=== PATIENT | male | born 1940 | race Caucasian/White ===

== ENCOUNTER → 2018-01-14 08:01 | Outpatient (CLI) | payer MEDICARE, BC, SELFPAY ==
--- NOTE | 2018-01-14 | DI.US.S_ITS ---
PROCEDURE: US ABD AORTA ANEURYSM SCREEN INDICATIONS: AAA SCREENING TECHNIQUE: Real time scanning was performed of the aorta and iliac arteries, with image documentation. COMPARISON: [facility], CT, CT ANGIO CHEST ABDOMEN PELVIS, 07/22/2017, 15:40. FINDINGS: Aorta: Proximal aortic diameter measures 2.6 cm. Mid-aorta measures 1.8 cm. Distal aortic diameter is 1.5 cm. Iliac arteries: Right common iliac artery measures 1.4 cm. Left common iliac artery measures 1.4 cm. IMPRESSION: No abdominal aortic or proximal common iliac artery aneurysm. Dictated by: Wenceslao Andersen [facility] Interpreted: Analy Bradley MD on 01/14/2018 at 9:27 Approved by: Analy Bradley MD, PhD on 01/14/2018 at 15:19
--- NOTE | 2018-01-14 | DI.ECHO.S_ITS ---
[place]---------+ [facility] +---------+ : : [address] : : : : [id number] : : : : Phone: [phone] Echocardiogram Report + + :Name: MYNOR GALICIA Study Date: 01/14/2018 Height: 75 in : :[facility] Weight: 237 lb : : Gender: Male BSA: 2.4 m2 : :: 1940 Age: 77 yrs BP: 158/90 mmHg: :Reason For Study: Murmur : : Performed By: Nathalia Merlos : :Referring: INÉS IBRAHIM E : + + Interpretation Summary The ejection fraction is estimated to be 60-65%. There is trace mitral regurgitation. The aortic valve is moderately calcified. The aortic valve mean gradient is 13 mmHg. There is mild to moderate aortic stenosis. The right ventricular systolic pressure is estimated to be at least 25 mmHg based on an estimated right atrial pressure of 3 mm Hg. The ascending aorta is moderately enlarged. Procedure: A two-dimensional transthoracic echocardiogram with color flow and Doppler was performed. The study quality was technically adequate. There is no prior echocardiogram noted for this patient. The patient was in normal sinus rhythm during the exam. Left Ventricle: The left ventricle is normal in size, wall thickness, and systolic function without any focal wall motion abnormalities. The ejection fraction is estimated to be 60-65%. Left ventricular wall motion is normal. Diastolic parameters suggest probable normal left ventricular diastolic function and normal filling pressures. Right Ventricle: The right ventricle grossly appears normal in size with probable normal systolic function. Atria: The left atrium is borderline dilated. Right atrial size is normal. The interatrial septum is intact with no evidence for an atrial septal defect. Mitral Valve: The mitral valve is normal in structure and function. There is trace mitral regurgitation. Aortic Valve: The aortic valve is trileaflet. The aortic valve is moderately calcified. The calculated aortic valve area is 1.8 cm2. The aortic valve area is 1.3 centimeters squared by planimetry. The peak aortic velocity is 2.3 m/sec. The aortic valve mean gradient is 13 mmHg. Severity ratio is 0.48. There is mild to moderate aortic stenosis. No aortic regurgitation is present. Tricuspid Valve: The tricuspid valve leaflets are thin and pliable. There is trace tricuspid regurgitation. The right ventricular systolic pressure is estimated to be at least 25 mmHg based on an estimated right atrial pressure of 3 mm Hg. Pulmonic Valve: The pulmonic valve is not well seen, but is grossly normal. There is trace pulmonic regurgitation. Great Vessels: The aortic root is normal size. The ascending aorta is moderately enlarged. The aortic arch is mildly enlarged. Inspiratory collapse cannot be assessed because of mechanical ventilation, thus CVP cannot be estimated.. Pericardium/ Pleura There is no pericardial effusion. There is no pleural effusion. MMode/2D Measurements & Calculations LVIDd: 5.0 cm LVOT diam: 2.3 cm LVIDs: 3.0 cm Ao root diam: 3.6 cm FS: 40.4 % Aortic Jxn: 3.2 cm EPSS: 0.54 cm asc Aorta Diam: 4.2 cm IVSd: 0.98 cm Ao Arch Diam (Prox Trans): 3.5 cm LVPWd: 1.0 cm LV staton. diameter/BSA (cm/m^2): 2.1 LV sys. diameter/BSA (cm/m^2): 1.3 LA dimension: 4.6 cm RA long axis: 4.8 cm LA A2 area: 22.0 cm2 RA area: 18.8 cm2 LA A4 area: 21.1 cm2 RA vol: 62.7 ml LA length (vol): 5.9 cm RA : 26.6 ml/m2 LA vol: 67.1 ml IVC diam: 1.6 cm LA vol index: 28.5 ml/m2 RVDd major: 5.0 cm RVD1 (basal): 4.2 cm RVD2 (mid): 3.2 cm JOHN (plan): 1.3 cm2 Doppler Measurements & Calculations Ao V2 max: 232.0 cm/sec LVOT Max Shree: 97.6 cm/sec Ao V2 mean: 163.3 cm/sec LV V1 max P.8 mmHg Ao max P.5 mmHg LV V1 VTI: 25.2 cm Ao mean P.5 mmHg JOHN(I,D): 2.0 cm2 Ao V2 VTI: 52.5 cm JOHN(V,D): 1.8 cm2 sev ratio: 0.48 JOHN indexed to BSA (cm^2/m^2): 0.85 MV E max shree: 51.9 cm/sec TR max shree: 233.3 cm/sec MV A max shree: 61.8 cm/sec TR max P.8 mmHg MV E/A: 0.84 PA V2 max: 86.8 cm/sec Med Peak E' Shree: 5.3 cm/sec PA V2 mean: 51.3 cm/sec E/E' med: 9.9 PA mean P.3 mmHg Lat Peak E' Shree: 4.3 cm/sec PA Accel Time: 0.07 sec E/E' lat: 12.0 E/e' average: 10.9 MV dec time: 0.29 sec MV P1/2t: 86.4 msec MV P1/2t max shree: 52.2 cm/sec MVA(P1/2t): 2.5 cm2 Reading Physician:04:18 PM
== END ==
PROVIDERS: PCP Family Medicine; Visit Provider Family Medicine
DX: Z13.6 Encounter for screening for cardiovascular disorders (principal); I35.0 Nonrheumatic aortic (valve) stenosis; R01.1 Cardiac murmur, unspecified
CPT/HCPCS: 76706; 93306

== ENCOUNTER 2018-04-25 15:16 | Emergency (ER) | payer MEDICARE, OTHER, SELFPAY ==
[2018-04-25] VITALS (11 sets, daily range): BP systolic 133–235; BP diastolic 69–107; PULSE 99–105; RESP 18–28; TEMP 38.3–39.2; O2SAT 93–97; BMI 29.3
--- NOTE | 2018-04-25 15:58 | DI.RAD.S_ITS ---
PROCEDURE: XR CHEST 1V INDICATIONS: scheevering,fever,temp 102.5 TECHNIQUE: One view of the chest was acquired. COMPARISON: [facility], CT, CT ANGIO CHEST ABDOMEN PELVIS, 07/22/2017, 15:40. [facility], CR, XR CHEST 1 VIEW, 07/22/2017, 13:44. FINDINGS: Surgical changes and devices: None. Lungs and pleura: No pleural effusions or pneumothorax. Lungs are clear. Mediastinum: Mediastinal contours appear normal. Heart size is normal. Bones and chest wall: No suspicious bony lesions. Overlying soft tissues appear unremarkable. IMPRESSION: No acute cardiopulmonary disease process. Dictated by: Analy Bradley MD, PhD on 04/25/2018 at 16:19 Approved by: Analy Bradley MD, PhD on 04/25/2018 at 16:20
[2018-04-25] MEDS: ACETAMINOPHEN 325 MG TABLET 975 MG PO (16:00)
[2018-04-25 16:04] LABS: Influenza A and B by PCR Rapid Negative (Negative)
[2018-04-25 16:11] LABS: Add Manual Diff / Slide Review NO; Basophils Absolute Auto 0 /uL (0-100); Basophils Percent Auto 0.2 % (0-2); Eosinophils Absolute Auto 0 /uL (0-450); Eosinophils Percent Auto 0.5 % (2-4); Hematocrit 47.8 % (41-53); Hemoglobin 16.2 g/dL (13.5-17.5); Lymphocytes Absolute Auto 200 /uL (1100-4500); Lymphocytes Percent Auto 6.1 % (25-40); Mean Corpuscular HGB Conc 33.9 % (30-36); Mean Corpuscular Hemoglobin 30.3 PG (26-34); Mean Corpuscular Volume 89.4 fL (80-100); Monocytes Absolute Auto 0 /uL (0-900); Monocytes Percent Auto 0.8 % (3-14); Neutrophils Absolute Auto 3600 /uL (1500-7000); Neutrophils Percent Auto 92.4 % (50-75); Platelet Count 145 X10^3/uL (150-400); Red Blood Cell Count 5.35 X10^6/uL (4.5-5.9); Red Cell Distribution Width 13.7 % (11.6-14.8); White Blood Cell Count 3.9 X10^3/uL (4.5-11.0)
--- NOTE | 2018-04-25 16:11 | PC.NURSE ---
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
[2018-04-25 16:16] LABS: Alanine Aminotransferase 488 IU/L (21-72); Albumin 4.7 g/dL (3.5-5.0); Albumin Globulin Ratio 1.6 (1.0-2.8); Alkaline Phosphatase 102 U/L (38-126); Aspartate Aminotransferase 596 IU/L (17-59); BUN Creatinine Ratio 15.8 (6-22); Bilirubin Total 1.3 mg/dL (0.2-1.3); Blood Urea Nitrogen 19 mg/dL (9-20); Calcium 9.6 mg/dL (8.4-10.2); Carbon Dioxide 27 mmol/L (22-32); Chloride 101 mmol/L (98-107); Glucose 125 mg/dL (80-110); HEMOLYSIS < 15 (0-50); Lactate (Lactic Acid) 2.2 mmol/L (0.7-2.1); Potassium 4.5 mmol/L (3.4-5.1); Sodium 139 mmol/L (137-145); Total Protein 7.7 g/dL (6.3-8.2)
--- NOTE | 2018-04-25 16:31 | ED_ITS ---
HPI - Fever General Chief Complaint: Fever Stated Complaint: shakes, uncontrolable,sudden onsent, CP intermitte Time Seen by Provider: 04/25/18 16:00 Source: patient and family Mode of arrival: ambulatory Limitations: no limitations History of Present Illness HPI Narrative: 77-year-old nonsmoking male presents with his in the chief complaint of fever, body aches, and an episode of the shakes earlier today. He has a vague burning sensation in chest and abdomen, but very little in terms of specific complaints. He has had no nausea, vomiting or diarrhea. He denies any shortness of breath or cough. He has had no runny nose or sore throat. He did have his flu swab. He denies any dysuria, frequency or urgency MD complaint: fever Onset (ago): hour(s) Temperature Source: subjective Associated symptoms: chills, rigors and myalgias Relieving factors: nothing Exacerbating factors: nothing Treatments prior to arrival fever: none Related Data Home Medications Medication Instructions Recorded Confirmed aspirin 81 mg PO DAILY #0 03/30/11 04/25/18 Fish Oil 2,000 mg PO DAILY 04/25/18 04/25/18 atorvastatin 10 mg PO DAILY 04/25/18 04/25/18 metoprolol succinate 100 mg PO DAILY 04/25/18 04/25/18 nortriptyline 25 mg PO QPM 04/25/18 04/25/18 trospium 20 mg PO DAILY 04/25/18 04/25/18 turmeric 900 mg PO DAILY 04/25/18 04/25/18 Allergies Allergy/AdvReac Type Severity Reaction Status Date / Time No Known Drug Allergies Allergy Verified 04/25/18 15:23 Review of Systems Constitutional Reports body ache(s), Denies chills, Reports fever(s), Denies lethargy and Denies weakness Eyes Denies change in vision, Denies eye discharge, Denies irritation and Denies loss of vision ENT Ears, Nose, Mouth, and Throat: Denies change in voice, Denies neck pain and Denies sore throat Cardiovascular Denies chest pain, Denies irregular heart rhythm, Denies lightheadedness, Denies palpitations, Denies dyspnea, Denies dyspnea on exertion and Denies orthopnea Respiratory Denies cough, Denies dyspnea, Denies dyspnea on exertion and Denies wheezing Gastrointestinal Gastrointestinal: Reports abdominal pain, Denies change in bowel habits, Denies diarrhea, Denies nausea and Denies vomiting Genitourinary Denies hematuria, Denies flank pain, Denies urinary incontinence and Denies urinary urgency Musculoskeletal Denies neck pain Integumentary/Breasts Denies pruritus, Denies erythema, Denies rash and Denies wounds Neurologic Denies confusion, Denies loss of vision and Denies weakness Psychiatric Denies anxiety, Denies confusion, Denies depression, Denies homicidal ideation and Denies suicidal ideation Endocrine Denies palpitations Hematologic/Lymphatic Denies easy bruising Allergic/Immunologic Denies wheezing [facility] Social History Smoking Status: Never smoker Exam Narrative Exam Narrative: GENERAL: This is a well-nourished, well-developed patient, in mild distress. HEAD: Atraumatic. Normocephalic. No temporal or scalp tenderness. EYES: Pupils equal round and reactive. Extraocular motions intact. No scleral icterus. No injection or drainage. ENT: Nose without bleeding, purulent drainage or septal hematoma. Throat without erythema, tonsillar hypertrophy or exudate. Uvula midline. Airway patent. NECK: Trachea midline. No JVD or lymphadenopathy. Supple, nontender, no meningeal signs. CARDIOVASCULAR: Regular rate and rhythm without murmurs, gallops, or rubs. RESPIRATORY: Clear to auscultation. Breath sounds equal bilaterally. No wheezes , rales, or rhonchi. GASTROINTESTINAL: Abdomen soft, mild tenderness in right upper quadrant, nondistended. No hepato-splenomegaly, or palpable masses. No guarding. EXTREMITIES: No clubbing, cyanosis, or edema. No joint tenderness, effusion, or edema noted. BACK: Nontender without deformity or crepitance. No flank tenderness. NEURO: AOx3. SKIN: No rash or erythema. Initial Vital Signs Initial Vital Signs: Vital Signs Temperature 101.1 F H 04/25/18 15:23 Pulse Rate 99 H 04/25/18 15:23 Respiratory Rate 28 H 04/25/18 15:23 Blood Pressure 235/107 H 04/25/18 15:23 Pulse Oximetry 97 04/25/18 15:23 Course Orders Ordered: ED Orders 04/25/18 15:26 Influenza A and B by PCR Rapid Stat 04/25/18 15:31 EKG-12 Lead Stat 04/25/18 15:35 EKG-12 Lead Stat 04/25/18 15:40 Complete Blood Count AUTO DIFF Stat Comprehensive Metabolic Panel Stat Lactate (Lactic Acid) Stat Procalcitonin Stat 04/25/18 15:50 Hepatitis Acute Panel Stat 04/25/18 15:58 XR chest 1V Stat 04/25/18 16:17 Blood Culture Stat 04/25/18 17:34 US abdomen complete Stat Discontinued Medications Acetaminophen (Tylenol) 975 mg PO NOW ONE Stop: 04/25/18 15:58 Last Admin: 04/25/18 16:00 Dose: 975 mg Sodium Chloride (Normal Saline 0.9%) 1,000 mls @ 1,000 mls/hr IV BOLUS ONE Stop: 04/25/18 17:32 Last Infusion: 04/25/18 18:26 Dose: 0 mls/hr Admin: 04/25/18 16:33 Dose: 1,000 mls/hr Consultations Consultation #1: Upon receipt of ultrasound and elevated liver enzymes I have discussed this case with on-call surgery whom sure the opinion this is unlikely to be a surgical case. Most likely medical hepatitis Consultation #2: Called to patient's primary care provider who will follow very closely as an outpatient, and expect a call tomorrow Vital Signs - 8 hr 04/25/18 15:23 04/25/18 16:00 04/25/18 16:16 Temperature 101.1 F H 102.5 F H 102.5 F H Pulse Rate 99 H 105 H Respiratory Rate 28 H 18 Blood Pressure 235/107 H Blood Pressure [Right Arm] 179/85 H Pulse Oximetry 97 94 04/25/18 16:45 04/25/18 17:00 04/25/18 17:33 Temperature 101 F H Pulse Rate 104 H 103 H Respiratory Rate 22 22 Blood Pressure Blood Pressure [Right Arm] 158/77 H 151/78 H Pulse Oximetry 94 93 04/25/18 17:47 04/25/18 18:00 04/25/18 18:02 Temperature 101 F H Pulse Rate 103 H 103 H Respiratory Rate 23 24 Blood Pressure Blood Pressure [Right Arm] 140/70 146/79 H Pulse Oximetry 94 94 04/25/18 18:30 04/25/18 19:51 Temperature Pulse Rate 105 H Respiratory Rate 23 Blood Pressure Blood Pressure [Right Arm] 138/74 133/69 Pulse Oximetry 93 MDM - Fever Differential Diagnosis Likely gastroenteritis, community acquired pneumonia, pyelonephritis, viral infection, sepsis and influenza Medical Records Attestation: I reviewed the patient's medical records. Lab Data Attestation: I reviewed the patient's lab results. Result diagrams: 04/25/18 15:40 04/25/18 15:40 Lab Results 04/25/18 04/25/18 04/25/18 Range/Units 15:26 15:40 15:40 WBC 3.9 L (4.5-11.0) X10^3/uL RBC 5.35 (4.5-5.9) X10^6/uL Hgb 16.2 (13.5-17.5) g/dL Hct 47.8 (41-53) % MCV 89.4 (80-100) fL MCH 30.3 (26-34) PG MCHC 33.9 (30-36) % RDW 13.7 (11.6-14.8) % Plt Count 145 L (150-400) X10^3/uL Neut % (Auto) 92.4 H (50-75) % Lymph % (Auto) 6.1 L (25-40) % [place] % (Auto) 0.8 L (3-14) % Eos % (Auto) 0.5 L (2-4) % Baso % (Auto) 0.2 (0-2) % Neut # (Auto) 3600 (6742-1112) /uL Lymph # (Auto) 200 L (3572-3775) /uL [place] # (Auto) 0 (0-900) /uL Eos # (Auto) 0 (0-450) /uL Baso # (Auto) 0 (0-100) /uL Sodium (137-145) mmol/L Potassium (3.4-5.1) mmol/L Chloride (98-107) mmol/L Carbon Dioxide (22-32) mmol/L BUN (9-20) mg/dL Creatinine (0.66-1.25) mg/dL Estimated GFR (>60) mL/min BUN/Creatinine Ratio (6-22) Glucose (80-110) mg/dL Lactate (0.7-2.1) mmol/L Calcium (8.4-10.2) mg/dL Total Bilirubin (0.2-1.3) mg/dL AST (17-59) IU/L ALT (21-72) IU/L Alkaline Phosphatase (38-126) U/L Total Protein (6.3-8.2) g/dL Albumin (3.5-5.0) g/dL Globulin (1.7-4.1) g/dL Albumin/Globulin Ratio (1.0-2.8) Lipase Procalcitonin 0.39 (<0.5) ng/mL Urine RBC (0-5/HPF) Urine WBC (0-5/HPF) Urine Bacteria (None) Ur Culture Indicated? Influenza A & B (PCR) Negative (Negative) 04/25/18 04/25/18 04/25/18 Range/Units 15:40 15:40 Unknown WBC (4.5-11.0) X10^3/uL RBC (4.5-5.9) X10^6/uL Hgb (13.5-17.5) g/dL Hct (41-53) % MCV (80-100) fL MCH (26-34) PG MCHC (30-36) % RDW (11.6-14.8) % Plt Count (150-400) X10^3/uL Neut % (Auto) (50-75) % Lymph % (Auto) (25-40) % [place] % (Auto) (3-14) % Eos % (Auto) (2-4) % Baso % (Auto) (0-2) % Neut # (Auto) (0530-8068) /uL Lymph # (Auto) (8372-7718) /uL [place] # (Auto) (0-900) /uL Eos # (Auto) (0-450) /uL Baso # (Auto) (0-100) /uL Sodium 139 (137-145) mmol/L Potassium 4.5 (3.4-5.1) mmol/L Chloride 101 (98-107) mmol/L Carbon Dioxide 27 (22-32) mmol/L BUN 19 (9-20) mg/dL Creatinine 1.20 (0.66-1.25) mg/dL Estimated GFR 59.0 L (>60) mL/min BUN/Creatinine Ratio 15.8 (6-22) Glucose 125 H (80-110) mg/dL Lactate 2.2 H (0.7-2.1) mmol/L Calcium 9.6 (8.4-10.2) mg/dL Total Bilirubin 1.3 Cancelled (0.2-1.3) mg/dL AST 596 H (17-59) IU/L ALT 488 H (21-72) IU/L Alkaline Phosphatase 102 (38-126) U/L Total Protein 7.7 (6.3-8.2) g/dL Albumin 4.7 (3.5-5.0) g/dL Globulin 3.0 (1.7-4.1) g/dL Albumin/Globulin Ratio 1.6 (1.0-2.8) Lipase Cancelled Procalcitonin (<0.5) ng/mL Urine RBC (0-5/HPF) Urine WBC (0-5/HPF) Urine Bacteria (None) Ur Culture Indicated? Influenza A & B (PCR) (Negative) 04/25/18 04/25/18 Range/Units Unknown Unknown WBC (4.5-11.0) X10^3/uL RBC (4.5-5.9) X10^6/uL Hgb (13.5-17.5) g/dL Hct (41-53) % MCV (80-100) fL MCH (26-34) PG MCHC (30-36) % RDW (11.6-14.8) % Plt Count (150-400) X10^3/uL Neut % (Auto) (50-75) % Lymph % (Auto) (25-40) % [place] % (Auto) (3-14) % Eos % (Auto) (2-4) % Baso % (Auto) (0-2) % Neut # (Auto) (3808-4000) /uL Lymph # (Auto) (5985-7427) /uL [place] # (Auto) (0-900) /uL Eos # (Auto) (0-450) /uL Baso # (Auto) (0-100) /uL Sodium (137-145) mmol/L Potassium (3.4-5.1) mmol/L Chloride (98-107) mmol/L Carbon Dioxide (22-32) mmol/L BUN (9-20) mg/dL Creatinine (0.66-1.25) mg/dL Estimated GFR (>60) mL/min BUN/Creatinine Ratio (6-22) Glucose (80-110) mg/dL Lactate (0.7-2.1) mmol/L Calcium (8.4-10.2) mg/dL Total Bilirubin (0.2-1.3) mg/dL AST (17-59) IU/L ALT (21-72) IU/L Alkaline Phosphatase (38-126) U/L Total Protein (6.3-8.2) g/dL Albumin (3.5-5.0) g/dL Globulin (1.7-4.1) g/dL Albumin/Globulin Ratio (1.0-2.8) Lipase 48 Procalcitonin (<0.5) ng/mL Urine RBC 1-5/hpf (0-5/HPF) Urine WBC None seen (0-5/HPF) Urine Bacteria None seen (None) Ur Culture Indicated? Cult not indicated Influenza A & B (PCR) (Negative) Urine Dip Bedside Urine Glucose Negative Bedside Urine Bilirubin - Negative Bedside Urine Ketone - Negative Urine Specific [place] 1.025 Bedside Urine Occult Blood +/- Bedside Urine pH 6.0 Bedside Urine Protein + 30 Bedside Urine Urobilinogen - Negative Bedside Urine Nitrite - Negative Bedside Urine Leukocytes - Negative Esterase Imaging Data US - abdomen: Radiologist's impression: [place] [id number] Ultrasound Report Signed Patient: Onesimo Oakley MR#: [id number] : 1940 Acct:[id number] Age/Sex: 77 / M Date of Service: 04/25/18 Loc: ED Accession Number: [id number] Procedure: US abdomen complete Ordering Provider: Nelson Louise D.O. PROCEDURE: US ABDOMEN COMPLETE INDICATIONS: fever, chills, abd pain TECHNIQUE: Real-time scanning was performed of the abdominal and retroperitoneal organs, with image documentation. COMPARISON: None. FINDINGS: Liver: Echogenic liver. The left lobe is not well-seen due to shadowing bowel gas Gallbladder: Not well-visualized and there is shadowing involving the gallbladder fossa possibly poorly visualized gallstones. No sonographic Perez sign. Biliary ducts: Intrahepatic bile ducts are non-dilated. Extrahepatic bile duct caliber measures 9 mm. Normal is 6-7 mm or less in diameter, or 10 mm or less post-cholecystectomy. Pancreas: Obscured by bowel gas Spleen: Obscured by shadowing bowel gas. Kidneys: Kidneys are normal in size and echotexture. Right kidney measures 11.3 cm long; left kidney obscured by shadowing bowel gas. No hydronephrosis or nephrolithiasis. No solid masses. Aorta: Not well-seen due to bowel gas. Iliacs: Not well-seen due to bowel gas IVC: Not well-visualized secondary to bowel gas. Miscellaneous: No free abdominal fluid. IMPRESSION: Suboptimal examination due to excessive shadowing bowel gas. Findings raise the possibility of cholelithiasis however this is not definitively confirmed sonographically. No sonographic Perez sign. No evidence of biliary ductal dilatation. Consider repeat ultrasound after 8 hours n.p.o. status Dictated by: Manoj Bernstein M.D. on 04/25/2018 at 18:57 Approved by: Manoj Bernstein M.D. on 04/25/2018 at 19:00 Chest x-ray: Radiologist's impression: [place] [address] XRay Report Signed Patient: Onesimo Oakley MR#: [id number] : 1940 Acct:[id number] Age/Sex: 77 / M Date of Service: 04/25/18 Loc: ED Accession Number: [id number] Procedure: XR chest 1V Ordering Provider: Nelson Louise D.O. PROCEDURE: XR CHEST 1V INDICATIONS: scheevering,fever,temp 102.5 TECHNIQUE: One view of the chest was acquired. COMPARISON: [facility], CT, CT ANGIO CHEST ABDOMEN PELVIS, 2017, 15:40. [facility], CR, XR CHEST 1 VIEW, 07/22/2017, 13:44. FINDINGS: Surgical changes and devices: None. Lungs and pleura: No pleural effusions or pneumothorax. Lungs are clear. Mediastinum: Mediastinal contours appear normal. Heart size is normal. Bones and chest wall: No suspicious bony lesions. Overlying soft tissues appear unremarkable. IMPRESSION: No acute cardiopulmonary disease process. Dictated by: Analy Bradley MD, PhD on 04/25/2018 at 16:19 MDM Narrative Medical decision making narrative: Multiple etiologies for patient's symptoms considered including: [Sepsis from pneumonia, UTI, flu, coli cystitis, viral hepatitis, bacteremia versus other] Patient's symptoms improved or duration of stay with above-stated therapies. Findings and discharge diagnosis discussed with patient/family followed by verbalization of understanding Return precautions discussed with patient/family whom verbalize understanding. Discharge Plan Departure Patient Disposition: Home Clinical Impression: Hepatitis Discharge Date/Time: 04/25/18 20:06 Interventions: ED Discharge Assessment Last Done: 04/25/18 20:06 Instructions: Viral Hepatitis (Alternative Therapy) Activity Restrictions/Additional Instructions: *You have been diagnosed with [ acute viral hepatitis ] *What to do: * continue to take medications as directed *Follow up with your primary care provider in the next few days, call for an appointment. Let them know you were seen in the Emergency Department and that we ask that you be seen in follow up *Return to ER if you should have any new, worsening or concerning symptoms , such as [ shaking chills, increasing pain, vomiting, other bothersome symptoms ] Prescriptions: No Action aspirin 81 mg Tablet,Delayed Release (Dr/Ec) 81 mg PO DAILY Qty: 0 RF: 0 atorvastatin 10 mg tablet 10 mg PO DAILY RF: 0 metoprolol succinate 100 mg tablet extended release 24 hr 100 mg PO DAILY RF: 0 nortriptyline 25 mg capsule 25 mg PO QPM RF: 0 trospium 20 mg tablet 20 mg PO DAILY RF: 0 Fish Oil 2,000 mg 2,000 mg PO DAILY RF: 0 turmeric 900 mg 900 mg PO DAILY RF: 0 Referrals: Marty Cifuentes MD [Primary Care Provider] -
[2018-04-25 16:33] LABS: Procalcitonin 0.39 ng/mL (<0.5)
[2018-04-25] MEDS: SODIUM CHLORIDE 0.9% 1,000 ML 1000 ML IV (16:33)
--- NOTE | 2018-04-25 17:34 | DI.US.S_ITS ---
PROCEDURE: US ABDOMEN COMPLETE INDICATIONS: fever, chills, abd pain TECHNIQUE: Real-time scanning was performed of the abdominal and retroperitoneal organs, with image documentation. COMPARISON: None. FINDINGS: Liver: Echogenic liver. The left lobe is not well-seen due to shadowing bowel gas Gallbladder: Not well-visualized and there is shadowing involving the gallbladder fossa possibly poorly visualized gallstones. No sonographic Perez sign. Biliary ducts: Intrahepatic bile ducts are non-dilated. Extrahepatic bile duct caliber measures 9 mm. Normal is 6-7 mm or less in diameter, or 10 mm or less post-cholecystectomy. Pancreas: Obscured by bowel gas Spleen: Obscured by shadowing bowel gas. Kidneys: Kidneys are normal in size and echotexture. Right kidney measures 11.3 cm long; left kidney obscured by shadowing bowel gas. No hydronephrosis or nephrolithiasis. No solid masses. Aorta: Not well-seen due to bowel gas. Iliacs: Not well-seen due to bowel gas IVC: Not well-visualized secondary to bowel gas. Miscellaneous: No free abdominal fluid. IMPRESSION: Suboptimal examination due to excessive shadowing bowel gas. Findings raise the possibility of cholelithiasis however this is not definitively confirmed sonographically. No sonographic Perez sign. No evidence of biliary ductal dilatation. Consider repeat ultrasound after 8 hours n.p.o. status Dictated by: Manoj Bernstein M.D. on 04/25/2018 at 18:57 Approved by: Manoj Bernstein M.D. on 04/25/2018 at 19:00
[2018-04-25 17:45] LABS: Lipase 48 U/L (23-300)
--- NOTE | 2018-04-25 18:55 | PC.NURSE ---
no vomiting, awaiting for u/s result. spouse at bs.
[2018-04-25 18:59] LABS: Bacteria Urine None Seen; WBC Urine None Seen (0-5/HPF)
[2018-04-25 19:06] LABS: Culture Indicated Urine Cult Not Indicated; RBC Urine 1-5/HPF (0-5/HPF)
[2018-04-25 20:05] LABS: Reflexed Lactate in 2 Hours Y
[2018-04-26 08:43] LABS: Acinetobacter baumannii Not Detected (Not Detect); Candida albicans Not Detected (Not Detect); Candida glabrata Not Detected (Not Detect); Candida krusei Not Detected (Not Detect); Candida parapsilosis Not Detected (Not Detect); Candida tropicalis Not Detected (Not Detect); E. coli Detected (Not Detect); Enterobacter cloacae complex Not Detected (Not Detect); Enterobacteriaceae species Detected (Not Detect); Enterococcus species Not Detected (Not Detect); Haemophilus influenzae Not Detected (Not Detect); KPC (carbapenem-resist gene) Not Detected (Not Detect); Listeria monocytogenes Not Detected (Not Detect); Neisseria meningitidis Not Detected (Not Detect); Proteus species Not Detected (Not Detect); Pseudomonas aeruginosa Not Detected (Not Detect); Serratia marcescens Not Detected (Not Detect); Staphylococcus species Not Detected (Not Detect); Streptococcus agalactiae (Gr B Not Detected (Not Detect); Streptococcus pneumonia Not Detected (Not Detect); Streptococcus pyogenes (Gr A) Not Detected (Not Detect); Streptococcus species Not Detected (Not Detect)
[2018-04-29 09:27] LABS: Hepatitis A Antibody IgM NONREACTIVE (NONREACTIVE); Hepatitis Acute Panel Interp 0.01 (NONREACTIVE); Hepatitis B Core Antibody IgM NONREACTIVE (NONREACTIVE); Hepatitis B Surface Antigen NONREACTIVE (NONREACTIVE); Hepatitis C Antibody NONREACTIVE
== END 2018-04-25 20:06 | disposition home or self-care (01) ==
PROVIDERS: Emergency Provider Emergency Medicine; PCP Family Medicine
DX: K75.9 Inflammatory liver disease, unspecified (principal)
CPT/HCPCS: 36415; 36591; 71045; 76700; 80053; 80074; 81003; 81015; 83605; 83690; 84145; 85025; 87040; 87150; 87186; 87205; 87400; 93005; 93010; 96360; 96361; 99285

== ENCOUNTER 2019-05-23 10:23 | Emergency (ER) | payer MEDICARE, OTHER, SELFPAY ==
[2019-05-23 10:25] VITALS: BP 203/103; PULSE 93; RESP 21; TEMP 37.1; O2SAT 95; BMI 30.6
--- NOTE | 2019-05-23 10:34 | DI.CT.S_ITS ---
PROCEDURE: CT ABDOMEN PELVIS W CON INDICATIONS: painless jaundice TECHNIQUE: After the administration of intravenous contrast, 5 mm thick sections acquired from the diaphragm to the symphysis. 5 mm coronal and sagittal reformats were acquired. For radiation dose reduction, the following was used: automated exposure control, adjustment of mA and/or kV according to patient size. COMPARISON: [facility], CT, CT ANGIO CHEST ABDOMEN PELVIS, 07/22/2017, 15:40. FINDINGS: Image quality: Excellent. ABDOMEN: Lung bases: Left lung base scarring is present, as before. Lung bases are otherwise clear. Heart size is normal. There is calcification of the coronary vasculature. Solid organs: Liver is normal in size and enhancement. Gallbladder demonstrates gas within its lumen. There is new mild intrahepatic biliary ductal dilatation. There is new moderate extrahepatic biliary ductal dilatation. Common hepatic and common bile ducts measure 12 mm short axis. High density focus within the distal common bile duct measuring 12 mm is present. Pancreas enhances normally. Spleen is normal in size and enhancement. No adrenal nodules. Kidneys demonstrate normal size and enhancement, without hydronephrosis. Peritoneum and bowel: Bowel loops demonstrate normal wall thickness and caliber. No free fluid or air. Appendectomy clips are present. Nodes and vessels: No retroperitoneal or mesenteric adenopathy by size criteria. IVC is within normal limits. Mild ectasia of the infrarenal abdominal aorta measuring 20 mm. Miscellaneous: No ventral hernias. PELVIS: Genitourinary: Bladder wall thickness is normal. Miscellaneous: No inguinal hernias or adenopathy. Bones: No suspicious bony lesions. No vertebral body compression fractures. IMPRESSION: 1. Choledocholithiasis associated with intrahepatic and extrahepatic biliary ductal dilatation. 2. Mild infrarenal abdominal aortic ectasia. 3. Coronary artery disease. Dictated by: Dominga Antonio M.D. on 05/23/2019 at 11:47 Approved by: Dominga Antonio M.D. on 05/23/2019 at 11:51
--- NOTE | 2019-05-23 10:34 | ED_ITS ---
HPI - Abdominal Pain General Chief Complaint: Abdominal Pain Stated Complaint: urine is orange color Time Seen by Provider: 05/23/19 10:33 History of Present Illness HPI narrative: CC: Rigors for the last 2 nights with jaundice. HPI: The patient is a 78-year-old male who was seen today by the PA in his doctor's office. The patient complained that he has had rigors and been cold for the last 2 nights. He has had shaking rigors but denies any fever or sweats. The PA notice that he was yellow with a trick sclera and was sent to the emergency department for evaluation of his jaundice. The patient admits to drinking approximately 5 drinks per week. He is also a former smoker. He denies a history of diabetes mellitus congestive heart failure COPD or asthma but has a history of coronary artery disease hypertension hyperlipidemia aortic stenosis and benign prostatic hypertrophy. He denies a history of any type of cancer or to lymphoma. He has had his appendix removed but not his gallbladder. He has had intermittent abdominal cramps. However he has developed progressive weakness fatigue and lack of energy over the last several days. He repeatedly states that he has had no documented fever. He denies any headache change in vision loss of vision diplopia nasal drainage sinus congestion sore throat, shortness of breath cough chest pain palpitations dizziness nausea vomiting diarrhea melena hematochezia urinary frequency or urgency. The urine tested in the office was very high for bilirubin. Related Data Home Medications Medication Instructions Recorded Confirmed metoprolol succinate 100 mg PO DAILY 04/25/18 05/23/19 rosuvastatin 5 mg PO DAILY 05/23/19 05/23/19 trospium 20 mg PO BEDTIME 05/23/19 05/23/19 turmeric 1 cap PO DAILY 05/23/19 05/23/19 Allergies Allergy/AdvReac Type Severity Reaction Status Date / Time atorvastatin AdvReac Intermediate Fatigued Verified 05/23/19 10:48 Review of Systems Review of Systems Narrative: His review of systems were negative except for those mentioned in the history of present illness. Patient History Medical History BPH (benign prostatic hyperplasia) (Acute) Chronic insomnia (Acute) Coronary artery disease (Acute) Hyperlipidemia (Acute) Hypertension (Acute) Lumbar degenerative disc disease (Acute) Moderate aortic stenosis by prior echocardiogram (Acute) Restless leg syndrome (Acute) Urinary incontinence (Acute) Surgical History Hx of appendectomy (Acute ~2018) S/P TURP (Acute ~2017) Social History Smoking Status: Never smoker Smoking Status: Never smoker alcohol intake frequency: 0-2 drinks per day Substance Use Type: does not use Exam Narrative Exam Narrative: PHYSICAL EXAM: CONSTITUTIONAL: Awake, Alert, Oriented, Coherent, Cooperative in NAD. The patient appears jaundiced. HEAD: AT/NC EENT: PERRL, FROM of eyes, no discharge, no nystagmus, sclera are icteric. Oral mucosa is moist and pink, posterior pharynx is without erythema or exudate. NECK: Supple, no obvious JVD, Trachea is midline without stridor, SPINE: No gross deformity, no palpable tenderness of the cervical, thoracic, lumbar or sacral spine. No CVA tenderness. THORAX: No deformity, retractions, chest wall tenderness, LUNGS: Clear with symmetrical breath sounds without respiratory distress. Breath sounds are decreased bilaterally. HEART: Normal heart tones, regular rhythm and rate with a grade 2/6 systolic murmur along the left sternal border and 2nd right intercostal space.. ABDOMEN: The patient's abdomen is distended without guarding rebound or rigidity. The patient seem to flinch when palpating the epigastrium however he denies any pain or discomfort. EXTREMITIES: No edema, cyanosis, deformity or tenderness. SKIN: No rash, bruising, petechiae or purpura. The patient has generalized jaundice with a yellow orange discoloration. NEURO: Awake, alert, oriented, conversive, no focal facial asymmetry/ cranial nerves II-XII are symmetrical ,, moves all 4 extremities and is ambulatory Initial Vital Signs Initial Vital Signs: Vital Signs Temperature 98.7 F 05/23/19 10:25 Pulse Rate 93 H 05/23/19 10:25 Respiratory Rate 21 05/23/19 10:25 Blood Pressure 203/103 H 05/23/19 10:25 Pulse Oximetry 95 05/23/19 10:25 Course Course Course Narrative: 1140: The patient just went for his CT of the abdomen. The p atient's glucose is 146 total bilirubin 6.5 conjugated bilirubin 3.4 unconjugated bilirubin 1.2. AST is 125, ALT is 259, alk-phos is 93, creatinine kinase is 187 CPKMB is 2.78, lipase is 18. 12:[address] scan of his abdomen reveals: 1. Choledocholithiasis associated with intrahepatic and extrahepatic biliary duct dilation 2. Mild infrarenal abdominal aortic ectasia 3. Coronary artery disease 1242: The patient appears to have obstructive jaundice secondary to choledocholithiasis. I discussed the patient with Dr. Rollins the general surgeon on-call who recommended that the patient be transferred to an institution that can perform an ERCP. I have informed the patient of the CT f indings and the the recommendations of Dr. brigido zhang and the patient has elected to try being transferred to [facility]. I will call the general surgeon or transfer service and see whether not they will accept the patient in transfer. 1331: I discussed the patient with Dr. Garcia, surgeon at [facility] in [place] who has accepted the patient being transferred to their institution. She requested that I send a copy of the CT report written by the radiologist as well as he she looking at the CT disc. She also requested that we administer a broad-spectrum antibiotic. I will administer 4.5 g of Zosyn. Orders Ordered: ED Orders 05/23/19 10:34 CT abdomen pelvis w con Stat BNP [NT-proBNP (BNP-Adult 18+)] Stat Basic Metabolic Panel Stat Complete Blood Count AUTO DIFF Stat Ethanol (ETOH) Stat Hepatic (Liver) Panel Stat Hepatitis Acute Panel Stat Lipase Stat Troponin & CK Cardiac Panel Stat 05/23/19 10:40 EKG-12 Lead Stat 05/23/19 10:42 XR chest 2V Stat 05/23/19 11:50 Lactate (Lactic Acid) Stat 05/23/19 11:55 Ictotest Urine Stat Urinalysis and Microscopic Stat 05/23/19 12:16 Ammonia (NH3) Stat Discontinued Medications Piperacillin/Tazobactam/Dextrose (Zosyn) 4.5 gm in 100 mls @ 200 mls/hr IV NOW ONE Stop: 05/23/19 14:02 Last Infusion: 05/23/19 14:20 Dose: 0 mls/hr Documented by: Admin: 05/23/19 13:46 Dose: 200 mls/hr Documented by: SCANAPO Metoprolol Succinate (Toprol Xl) 100 mg PO NOW ONE Stop: 05/23/19 10:44 Last Admin: 05/23/19 10:50 Dose: 100 mg Documented by: SHELBIE Vital Signs Vital signs: Vital Signs - 8 hr 05/23/19 10:25 05/23/19 11:58 05/23/19 12:30 Temperature 98.7 F Pulse Rate 93 H 89 79 Respiratory Rate 21 20 18 Blood Pressure 203/103 H Blood Pressure [right arm] 183/88 H 149/92 H Pulse Oximetry 95 97 97 05/23/19 13:30 Temperature Pulse Rate 78 Respiratory Rate 18 Blood Pressure Blood Pressure [right arm] 163/87 H Pulse Oximetry 98 MDM - Abdominal Pain Lab Data Result diagrams: 05/23/19 10:34 05/23/19 10:34 Labs: Lab Results 05/23/19 05/23/19 05/23/19 Range/Units 10:34 10:34 10:34 WBC 6.3 (4.5-11.0) X10^3/uL RBC 5.05 (4.5-5.9) X10^6/uL Hgb 15.2 (13.5-17.5) g/dL Hct 44.8 (41-53) % MCV 88.6 (80-100) fL MCH 30.2 (26-34) PG MCHC 34.0 (30-36) % RDW 14.1 (11.6-14.8) % Plt Count 128 L (150-400) X10^3/uL Neut % (Auto) 80.1 H (50-75) % Lymph % (Auto) 10.4 L (25-40) % Alpine % (Auto) 8.9 (3-14) % Eos % (Auto) 0.4 L (2-4) % Baso % (Auto) 0.2 (0-2) % Neut # (Auto) 5100 (4017-0725) /uL Lymph # (Auto) 700 L (5702-9451) /uL Alpine # (Auto) 600 (0-900) /uL Eos # (Auto) 0 (0-450) /uL Baso # (Auto) 0 (0-100) /uL Sodium 135 L (137-145) mmol/L Potassium 3.7 (3.4-5.1) mmol/L Chloride 102 (98-107) mmol/L Carbon Dioxide 23 (22-32) mmol/L BUN 16 (9-20) mg/dL Creatinine 1.20 (0.66-1.25) mg/dL Estimated GFR 58.9 L (>60) mL/min BUN/Creatinine Ratio 13.3 (6-22) Glucose 146 H (80-110) mg/dL Lactate (0.7-2.1) mmol/L Calcium 9.4 (8.4-10.2) mg/dL Total Bilirubin 6.5 H (0.2-1.3) mg/dL Conjugated Bilirubin 3.4 H (0.0-0.3) md/dL Unconjugated Bilirubin 1.2 H (0.0-1.1) mg/dL AST 125 H (17-59) IU/L ALT 259 H (<50) IU/L Alkaline Phosphatase 93 (38-126) U/L Ammonia (9-30) umol/L Total Creatine Kinase (55-170) U/L CK-MB (CK-2) (<2.37) ng/mL CK-MB (CK-2) Rel Index (1.5-5.0) % Troponin I (0.01-0.034) ng/mL NT-Pro-B Natriuret Pep (<450) pg/mL Total Protein 7.4 (6.3-8.2) g/dL Albumin 4.2 (3.5-5.0) g/dL Globulin 3.2 (1.7-4.1) g/dL Albumin/Globulin Ratio 1.3 (1.0-2.8) Lipase 18 L (23-300) U/L Urine Color Urine Appearance Urine pH (4.5-8.0) Ur Specific Evans (1.000-1.035) Urine Protein (Negative) Urine Glucose (UA) (Negative) g/dL Urine Ketones (NEGATIVE) Urine Occult Blood (Negative) Urine Nitrate (Negative) Urine Bilirubin (NEGATIVE) Ur Bilirubin Confirm (Negative) Urine Urobilinogen (0.2) E.U./dL Ur Leukocyte Esterase (NEGATIVE) Urine RBC (0-5/HPF) Urine WBC (0-5/HPF) Urine Bacteria (None) Ur Culture Indicated? Ethyl Alcohol < 10 ( - 10) mg/dL 02/14/20 02/14/20 02/14/20 Range/Units 10:34 11:50 11:55 WBC (4.5-11.0) X10^3/uL RBC (4.5-5.9) X10^6/uL Hgb (13.5-17.5) g/dL Hct (41-53) % MCV (80-100) fL MCH (26-34) PG MCHC (30-36) % RDW (11.6-14.8) % Plt Count (150-400) X10^3/uL Neut % (Auto) (50-75) % Lymph % (Auto) (25-40) % Alpine % (Auto) (3-14) % Eos % (Auto) (2-4) % Baso % (Auto) (0-2) % Neut # (Auto) (3583-0125) /uL Lymph # (Auto) (2846-5869) /uL Alpine # (Auto) (0-900) /uL Eos # (Auto) (0-450) /uL Baso # (Auto) (0-100) /uL Sodium (137-145) mmol/L Potassium (3.4-5.1) mmol/L Chloride (98-107) mmol/L Carbon Dioxide (22-32) mmol/L BUN (9-20) mg/dL Creatinine (0.66-1.25) mg/dL Estimated GFR (>60) mL/min BUN/Creatinine Ratio (6-22) Glucose (80-110) mg/dL Lactate 0.9 (0.7-2.1) mmol/L Calcium (8.4-10.2) mg/dL Total Bilirubin (0.2-1.3) mg/dL Conjugated Bilirubin (0.0-0.3) md/dL Unconjugated Bilirubin (0.0-1.1) mg/dL AST (17-59) IU/L ALT (<50) IU/L Alkaline Phosphatase (38-126) U/L Ammonia (9-30) umol/L Total Creatine Kinase 187 H (55-170) U/L CK-MB (CK-2) 2.78 H (<2.37) ng/mL CK-MB (CK-2) Rel Index 1.5 (1.5-5.0) % Troponin I 0.030 (0.01-0.034) ng/mL NT-Pro-B Natriuret Pep 259 (<450) pg/mL Total Protein (6.3-8.2) g/dL Albumin (3.5-5.0) g/dL Globulin (1.7-4.1) g/dL Albumin/Globulin Ratio (1.0-2.8) Lipase (23-300) U/L Urine Color Yellow Urine Appearance Clear Urine pH 6.5 (4.5-8.0) Ur Specific Evans <=1.005 (1.000-1.035) Urine Protein Negative (Negative) Urine Glucose (UA) Negative (Negative) g/dL Urine Ketones Negative (NEGATIVE) Urine Occult Blood 1+ H (Negative) Urine Nitrate Negative (Negative) Urine Bilirubin 2+ H (NEGATIVE) Ur Bilirubin Confirm Positive H (Negative) Urine Urobilinogen 0.2 (0.2) E.U./dL Ur Leukocyte Esterase Negative (NEGATIVE) Urine RBC 0-1/hpf (0-5/HPF) Urine WBC None seen (0-5/HPF) Urine Bacteria None seen (None) Ur Culture Indicated? Cult not indicated Ethyl Alcohol ( - 10) mg/dL 05/23/19 Range/Units 12:16 WBC (4.5-11.0) X10^3/uL RBC (4.5-5.9) X10^6/uL Hgb (13.5-17.5) g/dL Hct (41-53) % MCV (80-100) fL MCH (26-34) PG MCHC (30-36) % RDW (11.6-14.8) % Plt Count (150-400) X10^3/uL Neut % (Auto) (50-75) % Lymph % (Auto) (25-40) % Alpine % (Auto) (3-14) % Eos % (Auto) (2-4) % Baso % (Auto) (0-2) % Neut # (Auto) (5656-4487) /uL Lymph # (Auto) (3961-6640) /uL Alpine # (Auto) (0-900) /uL Eos # (Auto) (0-450) /uL Baso # (Auto) (0-100) /uL Sodium (137-145) mmol/L Potassium (3.4-5.1) mmol/L Chloride (98-107) mmol/L Carbon Dioxide (22-32) mmol/L BUN (9-20) mg/dL Creatinine (0.66-1.25) mg/dL Estimated GFR (>60) mL/min BUN/Creatinine Ratio (6-22) Glucose (80-110) mg/dL Lactate (0.7-2.1) mmol/L Calcium (8.4-10.2) mg/dL Total Bilirubin (0.2-1.3) mg/dL Conjugated Bilirubin (0.0-0.3) md/dL Unconjugated Bilirubin (0.0-1.1) mg/dL AST (17-59) IU/L ALT (<50) IU/L Alkaline Phosphatase (38-126) U/L Ammonia < 9 L (9-30) umol/L Total Creatine Kinase (55-170) U/L CK-MB (CK-2) (<2.37) ng/mL CK-MB (CK-2) Rel Index (1.5-5.0) % Troponin I (0.01-0.034) ng/mL NT-Pro-B Natriuret Pep (<450) pg/mL Total Protein (6.3-8.2) g/dL Albumin (3.5-5.0) g/dL Globulin (1.7-4.1) g/dL Albumin/Globulin Ratio (1.0-2.8) Lipase (23-300) U/L Urine Color Urine Appearance Urine pH (4.5-8.0) Ur Specific Evans (1.000-1.035) Urine Protein (Negative) Urine Glucose (UA) (Negative) g/dL Urine Ketones (NEGATIVE) Urine Occult Blood (Negative) Urine Nitrate (Negative) Urine Bilirubin (NEGATIVE) Ur Bilirubin Confirm (Negative) Urine Urobilinogen (0.2) E.U./dL Ur Leukocyte Esterase (NEGATIVE) Urine RBC (0-5/HPF) Urine WBC (0-5/HPF) Urine Bacteria (None) Ur Culture Indicated? Ethyl Alcohol ( - 10) mg/dL ECG Data Attestation: I personally reviewed and interpreted this ECG as follows: Interpretation: The patient's EKG obtained on May 23 10:3 7:58 a.m. reveals a normal sinus rhythm with a ventricular rate of 91. The patient's MT interval is 240 milliseconds consistent with a first-degree AV block. QRS duration is 92 milliseconds QTC is normal at 403. [place] is normal. The pat ient's T-waves are inverted in V1 otherwise there are no other acute diagnostic ST segment changes. The EKG is otherwise normal. The patient has anincomplete right bundle branch block. Discharge Plan Departure Patient Disposition: [facility] Clinical Impression: Cholestatic jaundice syndrome Choledocholithiasis with obstruction Qualifiers: Cholecystitis presence: without cholecystitis Qualified Code(s): K80.51 - Calculus of bile duct without cholangitis or cholecystitis with obstruction Prescriptions: No Action metoprolol succinate 100 mg tablet extended release 24 hr 100 mg PO DAILY RF: 0 rosuvastatin 5 mg Tablet 5 mg PO DAILY RF: 0 trospium 20 mg tablet 20 mg PO BEDTIME RF: 0 turmeric 1 cap PO DAILY RF: 0 Referrals: Taz Duffy MD [Primary Care Provider] -
--- NOTE | 2019-05-23 10:42 | DI.RAD.S_ITS ---
PROCEDURE: XR CHEST 2V INDICATIONS: dyspnea when walking TECHNIQUE: 2 views of the chest were acquired. COMPARISON: [facility], CR, XR CHEST 1V, 04/25/2018, 16:06. FINDINGS: Surgical changes and devices: None. Lungs and pleura: Lungs are clear. No pleural effusions or pneumothorax. Mediastinum: Mediastinal contours are normal. Heart size is normal. Bones and chest wall: No suspicious bony abnormalities. Soft tissues appear unremarkable. IMPRESSION: No acute process. Dictated by: Dominga Antonio M.D. on 05/23/2019 at 11:53 Approved by: Dominga Antonio M.D. on 05/23/2019 at 11:53
[2019-05-23] MEDS: METOPROLOL ER 50 MG TABLET 100 MG PO (10:50)
[2019-05-23 10:52] LABS: Add Manual Diff / Slide Review NO; Basophils Absolute Auto 0 /uL (0-100); Basophils Percent Auto 0.2 % (0-2); Eosinophils Absolute Auto 0 /uL (0-450); Eosinophils Percent Auto 0.4 % (2-4); Hematocrit 44.8 % (41-53); Hemoglobin 15.2 g/dL (13.5-17.5); Lymphocytes Absolute Auto 700 /uL (1100-4500); Lymphocytes Percent Auto 10.4 % (25-40); Mean Corpuscular Hemoglobin 30.2 PG (26-34); Mean Corpuscular Volume 88.6 fL (80-100); Monocytes Absolute Auto 600 /uL (0-900); Monocytes Percent Auto 8.9 % (3-14); Neutrophils Absolute Auto 5100 /uL (1500-7000); Neutrophils Percent Auto 80.1 % (50-75); Platelet Count 128 X10^3/uL (150-400); Red Blood Cell Count 5.05 X10^6/uL (4.5-5.9); Red Cell Distribution Width 14.1 % (11.6-14.8); White Blood Cell Count 6.3 X10^3/uL (4.5-11.0)
[2019-05-23 11:02] LABS: Creatine Kinase 187 U/L (55-170)
[2019-05-23 11:03] LABS: BUN Creatinine Ratio 13.3 (6-22); Blood Urea Nitrogen 16 mg/dL (9-20); Calcium 9.4 mg/dL (8.4-10.2); Carbon Dioxide 23 mmol/L (22-32); Chloride 102 mmol/L (98-107); Estimated Glomerular Filt Rate 58.9 mL/min (>60); Glucose 146 mg/dL (80-110); HEMOLYSIS < 15 (0-50); Potassium 3.7 mmol/L (3.4-5.1); Sodium 135 mmol/L (137-145)
[2019-05-23 11:06] LABS: Alanine Aminotransferase 259 IU/L (<50); Albumin 4.2 g/dL (3.5-5.0); Albumin Globulin Ratio 1.3 (1.0-2.8); Alkaline Phosphatase 93 U/L (38-126); Aspartate Aminotransferase 125 IU/L (17-59); Bilirubin Conjugated 3.4 md/dL (0.0-0.3); Bilirubin Total 6.5 mg/dL (0.2-1.3); Bilirubin Unconjugated 1.2 mg/dL (0.0-1.1); Ethanol (ETOH) < 10 mg/dL; Globulin 3.2 g/dL (1.7-4.1); HEMOLYSIS < 15 (0-50); Lipase 18 U/L (23-300); Total Protein 7.4 g/dL (6.3-8.2)
[2019-05-23 11:15] LABS: NT-proBNP (BNP-Adult 18+) 259 pg/mL (<450)
[2019-05-23 11:17] LABS: CKMB % Relative Index 1.5 % (1.5-5.0); Creatine Kinase MB 2.78 ng/mL (<2.37)
[2019-05-23 11:58] VITALS: BP 183/88; PULSE 89; RESP 20; O2SAT 97
[2019-05-23 12:02] LABS: Bacteria Urine None Seen; WBC Urine None Seen (0-5/HPF)
[2019-05-23 12:03] LABS: Appearance Urine UA CLEAR; Bilirubin Urine UA 2+ (NEGATIVE); Color Urine UA YELLOW; Glucose Urine UA NEGATIVE (Negative); Ketones Urine UA NEGATIVE (NEGATIVE); Leukocyte Esterase Urine UA NEGATIVE (NEGATIVE); Nitrite Urine UA NEGATIVE (Negative); Occult Blood Urine UA 1+ (Negative); Protein Urine UA NEGATIVE (Negative); Specific Gravity Urine UA <=1.005 (1.000-1.035); Urobilinogen Urine UA 0.2 E.U./dL (0.2); pH Urine UA 6.5 (4.5-8.0)
[2019-05-23 12:07] LABS: Lactate (Lactic Acid) 0.9 mmol/L (0.7-2.1)
[2019-05-23 12:11] LABS: Culture Indicated Urine Cult Not Indicated; Ictotest Urine Positive (Negative); RBC Urine 0-1/HPF (0-5/HPF)
[2019-05-23 12:30] VITALS: BP 149/92; PULSE 79; RESP 18; O2SAT 97
[2019-05-23 12:35] LABS: Ammonia (NH3) < 9 umol/L (9-30)
--- NOTE | 2019-05-23 13:21 | PC.NURSE ---
Per pt request, spoke w/ Pt's daughter Ngozi [phone] and updated her.
[2019-05-23 13:30] VITALS: BP 163/87; PULSE 78; RESP 18; O2SAT 98
[2019-05-23] MEDS: PIPERACILLIN-TAZO 4.5 GM/100 ML FROZ.PIGGY IV (13:46)
[2019-05-23 14:54] VITALS: BP 169/81; PULSE 76; RESP 18; O2SAT 96
[2019-05-26 09:06] LABS: Hepatitis A Antibody IgM NONREACTIVE; Hepatitis Acute Panel Interp 0.01; Hepatitis B Core Antibody IgM NONREACTIVE; Hepatitis B Surface Antigen NONREACTIVE; Hepatitis C Antibody NONREACTIVE
== END 2019-05-23 15:08 | disposition short-term general hospital (02) ==
PROVIDERS: Emergency Provider Emergency Medicine; PCP Internal Medicine
DX: K80.51 Calculus of bile duct without cholangitis or cholecystitis with obstruction (principal); K83.8 Other specified diseases of biliary tract
CPT/HCPCS: 36415; 71046; 74177; 80048; 80074; 80076; 80320; 81001; 82140; 82550; 82553; 83605; 83690; 83880; 84484; 85025; 93005; 96365; 99285; J2543

== ENCOUNTER → 2019-11-18 18:15 | Outpatient (ROUT) | payer MEDICARE, OTHER, SELFPAY ==
[2019-11-18 19:18] LABS: Add Manual Diff / Slide Review NO; Basophils Absolute Auto 0 /uL (0-100); Basophils Percent Auto 0.5 % (0-2); Eosinophils Absolute Auto 200 /uL (0-450); Eosinophils Percent Auto 2.8 % (2-4); Hematocrit 43.1 % (41-53); Hemoglobin 14.8 g/dL (13.5-17.5); Lymphocytes Absolute Auto 1500 /uL (1100-4500); Mean Corpuscular HGB Conc 34.3 % (30-36); Mean Corpuscular Hemoglobin 30.7 PG (26-34); Mean Corpuscular Volume 89.4 fL (80-100); Monocytes Absolute Auto 500 /uL (0-900); Monocytes Percent Auto 8.9 % (3-14); Neutrophils Absolute Auto 3500 /uL (1500-7000); Neutrophils Percent Auto 61.8 % (50-75); Platelet Count 164 X10^3/uL (150-400); Red Blood Cell Count 4.82 X10^6/uL (4.5-5.9); Red Cell Distribution Width 13.6 % (11.6-14.8); White Blood Cell Count 5.6 X10^3/uL (4.5-11.0)
[2019-11-18 19:26] LABS: Alanine Aminotransferase 47 IU/L (<50); Albumin 4.3 g/dL (3.5-5.0); Albumin Globulin Ratio 1.7 (1.0-2.8); Alkaline Phosphatase 63 U/L (38-126); Aspartate Aminotransferase 49 IU/L (17-59); BUN Creatinine Ratio 19.4 (6-22); Bilirubin Total 0.5 mg/dL (0.2-1.3); Blood Urea Nitrogen 24 mg/dL (9-20); Calcium 9.7 mg/dL (8.4-10.2); Carbon Dioxide 25 mmol/L (22-32); Chloride 106 mmol/L (98-107); Cholesterol 186 mg/dL (140-199); Estimated Glomerular Filt Rate 56.5 mL/min (>60); Globulin 2.5 g/dL (1.7-4.1); Glucose 121 mg/dL (80-110); HDL Cholesterol 39 mg/dL (40-60); HEMOLYSIS 15 (0-50); Potassium 4.5 mmol/L (3.4-5.1); Sodium 138 mmol/L (137-145); Total Protein 6.8 g/dL (6.3-8.2); Triglycerides 493 mg/dL (35-150)
== END ==
PROVIDERS: PCP Internal Medicine; Visit Provider Internal Medicine
DX: R07.9 Chest pain, unspecified (principal); E78.2 Mixed hyperlipidemia
CPT/HCPCS: 80053; 80061; 84443; 85025

== ENCOUNTER → 2019-12-15 10:43 | Outpatient (CLI) | payer MEDICARE, OTHER, SELFPAY ==
[2019-12-16 18:05] LABS: COVID19 Sendout Not Detected (Not Detect)
== END ==
PROVIDERS: PCP Internal Medicine; Visit Provider Nurse Practitioner
DX: Z11.59 Encounter for screening for other viral diseases (principal)
CPT/HCPCS: 87635

== ENCOUNTER → 2019-12-18 09:10 | Outpatient (CLI) | payer MEDICARE, OTHER, SELFPAY ==
--- NOTE | 2019-12-18 | DI.NM.S_ITS ---
PROCEDURE: NM BERT PERF SPECT REST & STR Rest and exercise myocardial perfusion SPECT with gated imaging and ejection fraction RADIOPHARMACEUTICAL: 13.8 mCi Tc-99m sestamibi IV at rest and 25.6 mCi Tc-99m sestamibi IV at peak exercise. A one day-protocol was performed. INDICATIONS: Chest pain Nonrheumatic aortic insufficiency TECHNIQUE: Radiopharmaceutical was injected at peak stress test, and also at rest. SPECT images were obtained. SPECT myocardial perfusion images were displayed in short axis, horizontal long axis, and vertical long axis views. Gated images were reviewed using Farehelper software. COMPARISON: None. CARDIAC STRESS: A standard Jamie treadmill exercise tolerance test was performed by the patient under the supervision of an attending staff. The patient exercised for 4 minutes and 23 seconds; functional aerobic impairment (ELISA) is +14 %. Hemodynamic data: There is normal heart rate response to exercise stress. Patient achieved 88% of maximum predicted heart rate at peak exercise. Symptoms: Patient had 1/10 chest pressure at peak exercise. EKG: There were 1mm downsloping ST depressions in the anterolateral leads during recovery. No ectopy. FINDINGS: Raw data: There is good myocardial labeling by radiotracer. No significant motion artifacts. Lobp-nl-btncq ratio is 0.31 (normal is less than 0.38 for sestamibi tracer, and less than 0.50 for thallium tracer). Left ventricle function: Gated images demonstrate normal left ventricle wall thickening. No segmental wall motion abnormality. No transient ischemic dilation. The left ventricle resting end-diastolic volume is 104 mL. Left ventricle stress ejection fraction is 74%; normal values are above 45%. Myocardial perfusion: There is moderately intense reversible defect in the lateral wall that improves in the distal lateral wall with prone imaging suggesting ischemia with some artifact. No prior infarction. SSS 6, SRS 1. IMPRESSION: Abnormal treadmill nuclear stress test concerning for ischemia 1) There is moderately intense reversible defect in the lateral wall that improves in the distal lateral wall with prone imaging suggesting ischemia with some artifact. No prior infarction. SSS 6, SRS 1. 2) Normal left ventricular size, wall motion, and systolic function (EF post stress 74%). 3) Mild down-sloping ST depressions in the anterolateral leads suggesting of ischemic heart disease. 4) Mild angina at peak exercise (1/10 chest pressure). 5) Reduced exercise tolerance (7.0 METs, ELISA +14%). Target heart rate achieved. 6) Mildly hypertensive response to exercise (resting BP 142/96mmHg, max BP 200/110mmHg). 7) No prior nuclear stress test available for comparison. Recommend cardiology consultation for further evaluation. Dictated by: Brian Bustillos MD on 12/18/2019 at 17:05 Approved by: Brian Bustillos MD on 12/18/2019 at 17:12
--- NOTE | 2019-12-18 10:24 | DI.ECHO.S_ITS ---
Echocardiogram Report + + :Name: MYNOR GALICIA Study Date: 12/18/2019 Height: 75 in : :[facility] Weight: 245 lb : : Gender: Male BSA: 2.4 m2 : :: 1940 Age: 79 yrs BP: 169/96 mmHg: :Reason For Study: AORTIC INSUFFICIENCY : :Ordering Physician: BRYAN, : :ABNER Performed By: Dione Martin : :Referring: ABNER ADAMS : + + Interpretation Summary The left ventricle is normal in size. The ejection fraction is estimated to be 60-65%. There has been no significant change in LV EF since the previous exam. The right ventricle is normal in size and function. The aortic valve is moderately calcified. The peak aortic velocity is 3.4 m/sec. The aortic valve mean gradient is 27 mmHg. The calculated aortic valve area is 1.4 cm2. The peak aortic velocity on the previous exam was 2.3 m/sec.There is moderate aortic stenosis.Compared to the prior echo study, there has been an increase in the severity of aortic stenosis. The ascending aorta is mildly enlarged. Asc Aorta Diam: 4.0 cm. Previously 4.2 cm in diameter. The IVC is of normal diameter and collapses greater than 50% with a sniff. This suggests a low right atrial pressure of 3 mm Hg. Procedure: A two-dimensional transthoracic echocardiogram with color flow and Doppler was performed. The study quality was technically adequate. Comparison is made with the echocardiogram of 01/14/2018. The patient was in sinus rhythm with heart rates between 60-65 bpm during the exam. Left Ventricle: The left ventricle is normal in size. Proximal septal thickening is noted. There is no echo evidence for significant left ventricular outflow tract obstruction. There is no thrombus. The ejection fraction is estimated to be 60-65%. There has been no significant change since the previous exam. There are no focal wall motion abnormalities. MV E/A: 0.90 Med Peak E' Shree: 6.2 cm/sec E/E' med: 9.7. Right Ventricle: The right ventricle is normal in size and function. Atria: Both atria are normal in size. There has been no significant change since the previous study. There is no Doppler evidence for an interatrial shunt. Mitral Valve: There is mild mitral annular calcification. The mitral valve leaflets are slightly calcified. There is trace mitral regurgitation. Aortic Valve: The aortic valve is trileaflet. The aortic valve is moderately calcified. There is moderate aortic stenosis. The aortic valve mean gradient is 27 mmHg. The peak aortic velocity is 3.4 m/sec. The calculated aortic valve area is 1.4 cm2. The peak aortic velocity on the previous exam was 2.3 m/sec. Compared to the prior echo study, there has been an increase in the severity of aortic stenosis. No aortic regurgitation is present. Tricuspid Valve: Pulmonary artery pressures cannot be estimated because of the lack of a measurable TR jet velocity but the IVC suggests a CVP of around 3 mmHg. There is trace tricuspid regurgitation. Pulmonic Valve: The pulmonic valve is not well seen, but is grossly normal. There is trace pulmonic regurgitation. Great Vessels: The aortic root is normal size. The ascending aorta is mildly enlarged. The IVC is of normal diameter and collapses greater than 50% with a sniff. This suggests a low right atrial pressure of 3 mm Hg. Pericardium/ Pleura There is no pericardial effusion. There is no pleural effusion. MMode/2D Measurements & Calculations LVIDd: 5.2 cm LVOT diam: 2.3 cm LVIDs: 3.3 cm Ao root diam: 3.5 cm FS: 37.3 % asc Aorta Diam: 4.0 cm EPSS: 0.62 cm Ao Arch Diam (Prox Trans): 3.2 cm IVSd: 0.87 cm LVPWd: 0.97 cm LV staton. diameter/BSA (cm/m^2): 2.2 LV sys. diameter/BSA (cm/m^2): 1.4 LA A2 area: 18.4 cm2 RA long axis: 5.5 cm LA A4 area: 18.6 cm2 RA area: 17.8 cm2 LA length (vol): 5.4 cm RA vol: 48.9 ml LA vol: 53.2 ml RA : 20.5 ml/m2 LA vol index: 22.2 ml/m2 IVC diam: 2.0 cm RVD1 (basal): 3.4 cm TAPSE: 2.6 cm Doppler Measurements & Calculations Ao V2 max: 338.7 cm/sec LVOT Max Shree: 120.3 cm/sec Ao V2 mean: 245.4 cm/sec LV V1 max P.8 mmHg Ao max P.9 mmHg LV V1 VTI: 29.5 cm Ao mean P.8 mmHg JOHN(I,D): 1.4 cm2 Ao V2 VTI: 84.8 cm JOHN(V,D): 1.5 cm2 sev ratio: 0.35 JOHN indexed to BSA (cm^2/m^2): 0.60 MV E max shree: 60.3 cm/sec PA V2 max: 66.3 cm/sec MV A max shree: 66.8 cm/sec PA V2 mean: 43.6 cm/sec MV E/A: 0.90 PA mean P.89 mmHg Med Peak E' Shree: 6.2 cm/sec PA pr(Accel): 32.8 mmHg E/E' med: 9.7 Lat Peak E' Shree: 6.5 cm/sec E/E' lat: 9.3 E/e' average: 9.5 MV dec time: 0.28 sec SV(LVOT): 121.4 ml Reading Physician:12:38 PM
== END ==
PROVIDERS: PCP Internal Medicine; Referring Provider Internal Medicine; Visit Provider Internal Medicine
DX: R94.39 Abnormal result of other cardiovascular function study (principal); I35.0 Nonrheumatic aortic (valve) stenosis; R07.9 Chest pain, unspecified; I77.89 Other specified disorders of arteries and arterioles
CPT/HCPCS: 78452; 93017; 93306; A9502

== ENCOUNTER → 2020-03-29 19:28 | Outpatient (ROUT) | payer MEDICARE, OTHER, SELFPAY ==
[2020-03-29 19:51] LABS: Add Manual Diff / Slide Review NO; Basophils Absolute Auto 0 /uL (0-100); Basophils Percent Auto 0.6 % (0-2); Eosinophils Absolute Auto 100 /uL (0-450); Eosinophils Percent Auto 2.1 % (2-4); Hematocrit 43.5 % (41-53); Hemoglobin 14.8 g/dL (13.5-17.5); Lymphocytes Absolute Auto 1300 /uL (1100-4500); Lymphocytes Percent Auto 27.5 % (25-40); Mean Corpuscular Hemoglobin 29.9 PG (26-34); Monocytes Absolute Auto 400 /uL (0-900); Monocytes Percent Auto 8.8 % (3-14); Neutrophils Absolute Auto 2900 /uL (1500-7000); Platelet Count 160 X10^3/uL (150-400); Red Blood Cell Count 4.95 X10^6/uL (4.5-5.9); Red Cell Distribution Width 13.6 % (11.6-14.8); White Blood Cell Count 4.8 X10^3/uL (4.5-11.0)
[2020-03-29 20:05] LABS: Alanine Aminotransferase 35 IU/L (<50); Albumin 3.9 g/dL (3.5-5.0); Albumin Globulin Ratio 1.6 (1.0-2.8); Alkaline Phosphatase 55 U/L (38-126); Aspartate Aminotransferase 31 IU/L (17-59); BUN Creatinine Ratio 17.5 (6-22); Bilirubin Total 0.6 mg/dL (0.2-1.3); Blood Urea Nitrogen 17 mg/dL (9-20); Calcium 9.1 mg/dL (8.4-10.2); Carbon Dioxide 27 mmol/L (22-32); Chloride 107 mmol/L (98-107); Cholesterol 173 mg/dL (140-199); Estimated Glomerular Filt Rate > 60.0 mL/min (>60); Globulin 2.5 g/dL (1.7-4.1); Glucose 108 mg/dL (80-110); HDL Cholesterol 38 mg/dL (40-60); HEMOLYSIS < 15 (0-50); LDL Cholesterol Calculated 80 mg/dL (<100); Potassium 4.4 mmol/L (3.4-5.1); Sodium 137 mmol/L (137-145); Total Protein 6.4 g/dL (6.3-8.2); Triglycerides 273 mg/dL (35-150)
[2020-03-29 20:30] LABS: TSH w/ Reflex to FT4 2.19 uIU/mL (0.47-4.68)
[2020-03-29 20:54] LABS: Hemoglobin A1C% w Est Avg Glu 6.2 % (4.0-6.0)
== END ==
PROVIDERS: PCP Internal Medicine; Visit Provider Internal Medicine
DX: E78.2 Mixed hyperlipidemia (principal); I25.10 Atherosclerotic heart disease of native coronary artery without angina pectoris
CPT/HCPCS: 80053; 80061; 83036; 84443; 85025

== ENCOUNTER 2021-06-02 11:58 | Inpatient (IN) | payer MEDICARE, OTHER, SELFPAY ==
[2021-06-02] VITALS (16 sets, daily range): BP systolic 132–174; BP diastolic 66–81; PULSE 76–102; RESP 16–33; TEMP 36.3–39.2; O2SAT 92–99; BMI 30.6; BMI 31.4
--- NOTE | 2021-06-02 12:24 | DI.RAD.S_ITS ---
PROCEDURE: XR KNEE RT 3V INDICATIONS: knee pain and swelling p TECHNIQUE: 3 views of the knee were acquired. COMPARISON: [facility], CR, KNEE MIN 4VW (RT), 02/18/2014, 11:00. FINDINGS: Bones: No fractures or dislocations. No suspicious bony lesions. Soft tissues: Mild joint effusion. No suspicious soft tissue calcifications. IMPRESSION: Mild effusion. No visualized acute fracture or dislocation. However, if clinical concern and/or pain persist, short interval imaging followup in 7-10 days is recommended, as occult injury cannot be definitively excluded. Dictated by: Keyana Gomez M.D. on 06/02/2021 at 12:50 Approved by: Keyana Gomez M.D. on 06/02/2021 at 12:51
--- NOTE | 2021-06-02 15:53 | DI.CT.S_ITS ---
PROCEDURE: CT LE RT WO CON INDICATIONS: Right knee pain TECHNIQUE: Noncontrast 1-1.5 mm axial sections acquired from the mid-patella to the proximal tibia, with coronal and sagittal reformats. COMPARISON: [facility], CR, XR KNEE RT 3V, 06/02/2021, 12:20. FINDINGS: Image quality: Excellent. Bones: No acute osseous fracture or dislocation. Mild subchondral osteophyte formation is seen in the medial patellar facet. Small osseous protuberance at the posterior medial aspect of the medial tibial plateau at the semimembranosus tendon insertion is likely a small enthesophyte. Patellar alignment is normal. Small superior patellar enthesophytes are present. Soft tissues: Moderate joint effusion. A small ossified intra-articular loose body is seen within the femorotibial joint space measuring 7 x 7 x 3 mm. The articular cartilages, menisci, ligaments, and tendons are not well evaluated with CT. The musculature surrounding the knee is normal in bulk. Arterial vascular calcifications are present. There is a small medial popliteal cyst. IMPRESSION: 1. No acute osseous fracture. 2. Small 7 mm ossified loose body within the lateral femorotibial joint space. 3. Mild degenerative changes in the anterior compartment. 4. Moderate joint effusion. 5. Consider MRI for further evaluation of the soft tissue structures if symptoms persist. Dictated by: Jamir Cantu M.D. on 06/02/2021 at 16:29 Approved by: Jamir Cantu M.D. on 06/02/2021 at 16:33
--- NOTE | 2021-06-02 15:54 | ED_ITS ---
HPI - Extremity Problem <All Marc MD - Last Filed: 06/03/21 09:32> General Chief complaint: Extremity Problem,Nontraumatic Stated complaint: Left knee swollen - pain level 10 Time Seen by Provider: 06/02/21 15:33 Source: patient Mode of arrival: Wheelchair History of Present Illness HPI Narrative: Patient here for right knee pain. No known injury. Start yesterday. No history of knee injury or surgery in the past. Painful with any attempts to bend the knee or weight-bearing. Patient did ambulate by himself with antalgic gait from room to the bathroom and back. No history of chemotherapy or immune suppression. No diabetes. Had fever and chills in the past 2 weeks. Tested negative for COVID 3 times. Related Data Home Medications Medication Instructions Recorded Confirmed metoprolol succinate 100 mg 100 mg PO DAILY 04/25/18 06/02/21 tablet,extended release 24 hr rosuvastatin 5 mg tablet 5 mg PO DAILY 05/23/19 06/02/21 trospium 20 mg tablet 20 mg PO BEDTIME 05/23/19 06/02/21 turmeric 1 cap PO DAILY 05/23/19 06/02/21 amlodipine 5 mg tablet 5 mg PO DAILY 06/02/21 06/02/21 Allergies Allergy/AdvReac Type Severity Reaction Status Date / Time atorvastatin AdvReac Intermediate Fatigued Verified 06/02/21 12:21 Review of Systems <All Marc MD - Last Filed: 06/03/21 09:32> Review of Systems Narrative: GENERAL: Denies chills, fatigue, malaise, fever, sweats. HEENT: Denies sinus pain, ear pain, sore throat RESPIRATORY: Denies dyspnea, cough CARDIOVASCULAR: Denies chest pain, palpitations GASTROINTESTINAL: Denies nausea, vomiting, abdominal pain : Denies dysuria, frequency, hematuria MUSCULOSKELETAL: Positive for muscle or bony pain SKIN: Denies rash, skin lesions NEUROLOGIC: Denies weakness, numbness ROS Unobtainable: All systems reviewed & are unremarkable except as noted in HPI and below Patient History <All Marc MD - Last Filed: 06/03/21 09:32> Medical History BPH (benign prostatic hyperplasia) Chronic insomnia Coronary artery disease Hyperlipidemia Hypertension Lumbar degenerative disc disease Moderate aortic stenosis by prior echocardiogram Restless leg syndrome Urinary incontinence Surgical History Hx of appendectomy (~2018) S/P TURP (~2017) Social History household members: spouse Smoking Status: Never smoker alcohol intake: current Smoking Status: Never smoker alcohol intake frequency: holidays/special occasions only Substance Use Type: does not use Exam <All Marc MD - Last Filed: 06/03/21 09:32> Narrative Exam Narrative: GENERAL: in no distress, not toxic not dyspneic HEAD: Normocephalic. EYES: Pupils equal round No scleral icterus. ENT: Mucous membranes moist. NECK: Trachea midline. CARDIOVASCULAR: Regular rate and rhythm without murmurs RESPIRATORY: Clear to auscultation. Breath sounds equal bilaterally. No wheezes, rales, or rhonchi. GASTROINTESTINAL: Abdomen soft, non-tender EXTREMITIES: No gross deformities. Right knee 2 toes exposed. There is edema and warmth to the anterior knee. Mild edema. Very limited range of motion with flexion extension actively or passively of the knee. No erythema. BACK: No flank tenderness. NEURO: AOx4. SKIN: Warm and dry PSYCH: Not anxious, is cooperative Initial Vital Signs Initial Vital Signs: Vital Signs Temperature 97.4 F L 06/02/21 12:21 Pulse Rate 79 06/02/21 12:21 Respiratory Rate 17 06/02/21 12:21 Blood Pressure 132/74 06/02/21 12:21 Pulse Oximetry 97 06/02/21 12:21 <Aislinn Clifford DO - Last Filed: 06/03/21 03:25> Initial Vital Signs Initial Vital Signs: Vital Signs Temperature 97.4 F L 06/02/21 12:21 Pulse Rate 79 06/02/21 12:21 Respiratory Rate 17 06/02/21 12:21 Blood Pressure 132/74 06/02/21 12:21 Pulse Oximetry 97 06/02/21 12:21 Procedures <All Marc MD - Last Filed: 06/03/21 09:32> Joint Aspiration Joint Asp./Inject. 1: Time of procedure: 18:40 Time Out Performed: Yes Side of body: right Joint Aspirated: knee Skin Prep: Chlorhexidine Local Anesthetic: lidocaine 1% Amount of anesthesia used (mL): 2 Needle Size Used: 18G Fluid Obtained: clear Total fluid obtained (mL): 10 Patient Tolerated Procedure: Well Complications: none Course <All Marc MD - Last Filed: 06/03/21 09:32> Course Course Narrative: 6:30 p.m.. Sign out to Dr. Clifford, awaiting for arthrocentesis lab results, will need to call Orthopedics afterwards Orders Ordered: Acetaminophen (Acetaminophen 325 Mg Tablet) 650 mg PO Q6HR PRN PRN Reason: Fever/Mild Pain (1-3) Last Admin: 06/02/21 23:09 Dose: 650 mg Documented by: FELICIA Amlodipine Besylate (Amlodipine 5 Mg Tablet) 5 mg PO DAILY [facility] Atorvastatin Calcium (Atorvastatin 20 Mg Tablet) 10 mg PO DAILY [facility] Enoxaparin Sodium (Enoxaparin 30 Mg/0.3 Ml Syringe) 30 mg SUBCUT DAILY [facility] Hydromorphone HCl (Hydromorphone 0.5 Mg Inj) 0.5 mg IV Q4H PRN PRN Reason: Pain, Moderate (4-6) Sodium Chloride (Normal Saline 0.9%) 1,000 mls @ 100 mls/hr IV CONT CNIDY Last Admin: 06/02/21 23:10 Dose: 100 mls/hr Documented by: FELICIA Ceftriaxone Sodium 1,000 mg/ (Sodium Chloride) 100 mls @ 200 mls/hr IV Q24H [facility] Ibuprofen (Ibuprofen 600 Mg Tablet) 600 mg PO Q6HR PRN PRN Reason: Fever/Mild Pain (1-3) Last Admin: 06/02/21 23:10 Dose: 600 mg Documented by: FELICIA Metoprolol Succinate (Metoprolol Er 50 Mg Tablet) 100 mg PO DAILY [facility] Morphine Sulfate (Morphine 2 Mg/Ml Inj) 2 mg IV Q4HR PRN PRN Reason: Pain, Moderate (4-6) Naloxone HCl (Naloxone 0.4 Mg/Ml Vial) 0.2 mg IV Q2MIN PRN PRN Reason: Opiate Reversal Ondansetron HCl (Ondansetron 4 Mg/2 Ml Inj) 4 mg IV Q8HR PRN PRN Reason: Nausea And Vomiting Oxybutynin Chloride (Oxybutynin 5 Mg Er Tab) 5 mg PO BEDTIME CINDY Sennosides (Sennosides 8.6 Mg Tablet) 17.2 mg PO BEDTIME CINDY Discontinued Medications Acetaminophen (Acetaminophen 325 Mg Tablet) 325 mg PO NOW ONE Stop: 06/03/21 00:34 Last Admin: 06/03/21 00:53 Dose: 325 mg Documented by: FIDELINA Hydromorphone HCl (Hydromorphone 1 Mg Inj) 1 mg IV NOW ONE Stop: 06/02/21 18:30 Last Admin: 06/02/21 18:34 Dose: 1 mg Documented by: MACK Ceftriaxone Sodium 2,000 mg/ (Sodium Chloride) 100 mls @ 200 mls/hr IV NOW ONE Stop: 06/03/21 06:04 Last Admin: 06/03/21 06:35 Dose: 200 mls/hr Documented by: FIDELINA Morphine Sulfate (Morphine 4 Mg/Ml Inj) 4 mg IV NOW ONE Stop: 06/02/21 15:53 Last Admin: 06/02/21 16:19 Dose: 4 mg Documented by: MACK Ondansetron HCl (Ondansetron 4 Mg/2 Ml Inj) 4 mg IV NOW ONE Stop: 06/02/21 15:53 Last Admin: 06/02/21 16:20 Dose: 4 mg Documented by: MACK Vital Signs Vital signs: Vital Signs - 8 hr 06/02/21 19:30 06/02/21 21:13 06/02/21 21:14 Pulse Rate 76 101 H 102 H Respiratory Rate 16 23 Blood Pressure 158/76 H 172/81 H Pulse Oximetry 99 95 06/02/21 21:15 06/02/21 21:30 06/02/21 21:45 Pulse Rate 100 H 93 H 93 H Respiratory Rate 29 H 22 24 Blood Pressure 174/81 H 157/70 H 149/72 H Pulse Oximetry 96 95 94 06/02/21 22:00 06/02/21 22:01 06/02/21 22:15 Pulse Rate 96 H 97 H 99 H Respiratory Rate 26 H 24 33 H Blood Pressure 144/75 H 143/77 H Pulse Oximetry 93 92 93 <Aislinn Clifford DO - Last Filed: 06/03/21 03:25> Orders Ordered: Acetaminophen (Acetaminophen 325 Mg Tablet) 650 mg PO Q6HR PRN PRN Reason: Fever/Mild Pain (1-3) Last Admin: 06/02/21 23:09 Dose: 650 mg Documented by: FELICIA Amlodipine Besylate (Amlodipine 5 Mg Tablet) 5 mg PO DAILY [facility] Atorvastatin Calcium (Atorvastatin 20 Mg Tablet) 10 mg PO DAILY [facility] Enoxaparin Sodium (Enoxaparin 30 Mg/0.3 Ml Syringe) 30 mg SUBCUT DAILY [facility] Hydromorphone HCl (Hydromorphone 0.5 Mg Inj) 0.5 mg IV Q4H PRN PRN Reason: Pain, Moderate (4-6) Sodium Chloride (Normal Saline 0.9%) 1,000 mls @ 100 mls/hr IV CONT CINDY Last Admin: 06/02/21 23:10 Dose: 100 mls/hr Documented by: FELICIA Ceftriaxone Sodium 1,000 mg/ (Sodium Chloride) 100 mls @ 200 mls/hr IV Q24H [facility] Ibuprofen (Ibuprofen 600 Mg Tablet) 600 mg PO Q6HR PRN PRN Reason: Fever/Mild Pain (1-3) Last Admin: 06/02/21 23:10 Dose: 600 mg Documented by: FELICIA Metoprolol Succinate (Metoprolol Er 50 Mg Tablet) 100 mg PO DAILY [facility] Morphine Sulfate (Morphine 2 Mg/Ml Inj) 2 mg IV Q4HR PRN PRN Reason: Pain, Moderate (4-6) Naloxone HCl (Naloxone 0.4 Mg/Ml Vial) 0.2 mg IV Q2MIN PRN PRN Reason: Opiate Reversal Ondansetron HCl (Ondansetron 4 Mg/2 Ml Inj) 4 mg IV Q8HR PRN PRN Reason: Nausea And Vomiting Oxybutynin Chloride (Oxybutynin 5 Mg Er Tab) 5 mg PO BEDTIME [facility] Sennosides (Sennosides 8.6 Mg Tablet) 17.2 mg PO BEDTIME [facility] Discontinued Medications Acetaminophen (Acetaminophen 325 Mg Tablet) 325 mg PO NOW ONE Stop: 06/03/21 00:34 Last Admin: 06/03/21 00:53 Dose: 325 mg Documented by: FIDELINA Hydromorphone HCl (Hydromorphone 1 Mg Inj) 1 mg IV NOW ONE Stop: 06/02/21 18:30 Last Admin: 06/02/21 18:34 Dose: 1 mg Documented by: MACK Ceftriaxone Sodium 2,000 mg/ (Sodium Chloride) 100 mls @ 200 mls/hr IV NOW ONE Stop: 06/03/21 06:04 Last Admin: 06/03/21 06:35 Dose: 200 mls/hr Documented by: FIDELINA Morphine Sulfate (Morphine 4 Mg/Ml Inj) 4 mg IV NOW ONE Stop: 06/02/21 15:53 Last Admin: 06/02/21 16:19 Dose: 4 mg Documented by: MACK Ondansetron HCl (Ondansetron 4 Mg/2 Ml Inj) 4 mg IV NOW ONE Stop: 06/02/21 15:53 Last Admin: 06/02/21 16:20 Dose: 4 mg Documented by: MACK Vital Signs Vital signs: Vital Signs - 8 hr 06/02/21 19:30 06/02/21 21:13 06/02/21 21:14 Pulse Rate 76 101 H 102 H Respiratory Rate 16 23 Blood Pressure 158/76 H 172/81 H Pulse Oximetry 99 95 06/02/21 21:15 06/02/21 21:30 06/02/21 21:45 Pulse Rate 100 H 93 H 93 H Respiratory Rate 29 H 22 24 Blood Pressure 174/81 H 157/70 H 149/72 H Pulse Oximetry 96 95 94 06/02/21 22:00 06/02/21 22:01 06/02/21 22:15 Pulse Rate 96 H 97 H 99 H Respiratory Rate 26 H 24 33 H Blood Pressure 144/75 H 143/77 H Pulse Oximetry 93 92 93 MDM - Extremity (Nontraumatic) <All Marc MD - Last Filed: 06/03/21 09:32> Differential Diagnosis Differential diagnosis: Likely gout, cellulitis and other (Arthritis/septic joint) Lab Data Result diagrams: 06/03/21 04:30 06/03/21 04:30 Labs: Lab Results 06/02/21 06/02/21 06/02/21 Range/Units 16:10 16:10 16:10 WBC 9.9 (4.5-11.0) X10^3/uL RBC 4.39 L (4.5-5.9) X10^6/uL Hgb 12.3 L (13.5-17.5) g/dL Hct 37.5 L (41-53) % MCV 85.4 (80-100) fL MCH 28.1 (26-34) PG MCHC 32.9 (30-36) % RDW 13.9 (11.6-14.8) % Plt Count 220 (150-400) X10^3/uL Neut % (Auto) 83.6 H (50-75) % Lymph % (Auto) 9.8 L (25-40) % Lanier % (Auto) 6.0 (3-14) % Eos % (Auto) 0.2 L (2-4) % Baso % (Auto) 0.4 (0-2) % Neut # (Auto) 8300 H (9125-0222) /uL Lymph # (Auto) 1000 L (3986-4326) /uL Lanier # (Auto) 600 (0-900) /uL Eos # (Auto) 0 (0-450) /uL Baso # (Auto) 0 (0-100) /uL ESR 61 H (0-15) MM/HR Sodium 135 L (137-145) mmol/L Potassium 4.3 (3.4-5.1) mmol/L Chloride 101 (98-107) mmol/L Carbon Dioxide 26 (22-32) mmol/L BUN 17 (9-20) mg/dL Creatinine 1.13 (0.66-1.25) mg/dL Estimated GFR > 60.0 (>60) mL/min BUN/Creatinine Ratio 15.0 (6-22) Glucose 123 H (80-110) mg/dL Uric Acid 3.4 L (3.5-8.5) mg/dL Calcium 8.7 (8.4-10.2) mg/dL Magnesium (1.6-2.3) mg/dL Total Bilirubin 0.5 (0.2-1.3) mg/dL AST 38 (17-59) IU/L ALT 48 (<50) IU/L Alkaline Phosphatase 68 (38-126) U/L Total Creatine Kinase (55-170) U/L CK-MB (CK-2) (<2.37) ng/mL CK-MB (CK-2) Rel Index (1.5-5.0) % Troponin I (0.01-0.034) ng/mL C-Reactive Protein 5.0 H (<1.0) mg/dL NT-Pro-B Natriuret Pep (<450) pg/mL Total Protein 7.1 (6.3-8.2) g/dL Albumin 3.9 (3.5-5.0) g/dL Globulin 3.2 (1.7-4.1) g/dL Albumin/Globulin Ratio 1.2 (1.0-2.8) Procalcitonin (<0.5) ng/mL Fluid Color Fluid Appearance Fluid RBC /uL Fld Tot Nucleated Cell /uL Fluid Polynuclear WBCs % Fluid Mononuclear WBCs % Fluid Eosinophils % Fluid Other Cells % Fluid Crystals (NONE) Body Fluid Clot 06/02/21 06/02/21 06/02/21 Range/Units 18:39 18:39 20:20 WBC (4.5-11.0) X10^3/uL RBC (4.5-5.9) X10^6/uL Hgb (13.5-17.5) g/dL Hct (41-53) % MCV (80-100) fL MCH (26-34) PG MCHC (30-36) % RDW (11.6-14.8) % Plt Count (150-400) X10^3/uL Neut % (Auto) (50-75) % Lymph % (Auto) (25-40) % Lanier % (Auto) (3-14) % Eos % (Auto) (2-4) % Baso % (Auto) (0-2) % Neut # (Auto) (9284-5041) /uL Lymph # (Auto) (9730-1521) /uL Lanier # (Auto) (0-900) /uL Eos # (Auto) (0-450) /uL Baso # (Auto) (0-100) /uL ESR (0-15) MM/HR Sodium (137-145) mmol/L Potassium (3.4-5.1) mmol/L Chloride (98-107) mmol/L Carbon Dioxide (22-32) mmol/L BUN (9-20) mg/dL Creatinine (0.66-1.25) mg/dL Estimated GFR (>60) mL/min BUN/Creatinine Ratio (6-22) Glucose (80-110) mg/dL Uric Acid (3.5-8.5) mg/dL Calcium (8.4-10.2) mg/dL Magnesium (1.6-2.3) mg/dL Total Bilirubin (0.2-1.3) mg/dL AST (17-59) IU/L ALT (<50) IU/L Alkaline Phosphatase (38-126) U/L Total Creatine Kinase 182 H (55-170) U/L CK-MB (CK-2) 1.99 (<2.37) ng/mL CK-MB (CK-2) Rel Index 1.1 L (1.5-5.0) % Troponin I 0.015 (0.01-0.034) ng/mL C-Reactive Protein (<1.0) mg/dL NT-Pro-B Natriuret Pep (<450) pg/mL Total Protein (6.3-8.2) g/dL Albumin (3.5-5.0) g/dL Globulin (1.7-4.1) g/dL Albumin/Globulin Ratio (1.0-2.8) Procalcitonin (<0.5) ng/mL Fluid Color [place] Fluid Appe[place] 85185 /uL Fld Tot Nucleated Cell 32814 /uL Fluid Polynuclear WBCs 92 % Fluid Mononuclear WBCs 8 % Fluid Eosinophils 0 % Fluid Other Cells 0 % Fluid Crystals None present (NONE) Body Fluid Clot No clots present 06/02/21 06/02/21 06/02/21 Range/Units 20:20 20:20 20:20 WBC (4.5-11.0) X10^3/uL RBC (4.5-5.9) X10^6/uL Hgb (13.5-17.5) g/dL Hct (41-53) % MCV (80-100) fL MCH (26-34) PG MCHC (30-36) % RDW (11.6-14.8) % Plt Count (150-400) X10^3/uL Neut % (Auto) (50-75) % Lymph % (Auto) (25-40) % Lanier % (Auto) (3-14) % Eos % (Auto) (2-4) % Baso % (Auto) (0-2) % Neut # (Auto) (3369-6733) /uL Lymph # (Auto) (6640-5973) /uL Lanier # (Auto) (0-900) /uL Eos # (Auto) (0-450) /uL Baso # (Auto) (0-100) /uL ESR (0-15) MM/HR Sodium 132 L (137-145) mmol/L Potassium 3.9 (3.4-5.1) mmol/L Chloride 102 (98-107) mmol/L Carbon Dioxide 18 L (22-32) mmol/L BUN 16 (9-20) mg/dL Creatinine 1.27 H (0.66-1.25) mg/dL Estimated GFR 54.8 L (>60) mL/min BUN/Creatinine Ratio 12.6 (6-22) Glucose 157 H (80-110) mg/dL Uric Acid (3.5-8.5) mg/dL Calcium 8.7 (8.4-10.2) mg/dL Magnesium 1.9 (1.6-2.3) mg/dL Total Bilirubin 0.6 (0.2-1.3) mg/dL AST 48 (17-59) IU/L ALT 47 (<50) IU/L Alkaline Phosphatase 62 (38-126) U/L Total Creatine Kinase (55-170) U/L CK-MB (CK-2) (<2.37) ng/mL CK-MB (CK-2) Rel Index (1.5-5.0) % Troponin I (0.01-0.034) ng/mL C-Reactive Protein (<1.0) mg/dL NT-Pro-B Natriuret Pep 438 (<450) pg/mL Total Protein 7.0 (6.3-8.2) g/dL Albumin 3.9 (3.5-5.0) g/dL Globulin 3.1 (1.7-4.1) g/dL Albumin/Globulin Ratio 1.3 (1.0-2.8) Procalcitonin 0.17 (<0.5) ng/mL Fluid Color Fluid Appearance Fluid RBC /uL Fld Tot Nucleated Cell /uL Fluid Polynuclear WBCs % Fluid Mononuclear WBCs % Fluid Eosinophils % Fluid Other Cells % Fluid Crystals (NONE) Body Fluid Clot 06/02/21 Range/Units 20:40 WBC 12.2 H (4.5-11.0) X10^3/uL RBC 4.06 L (4.5-5.9) X10^6/uL Hgb 11.5 L (13.5-17.5) g/dL Hct 34.4 L (41-53) % MCV 84.6 (80-100) fL MCH 28.4 (26-34) PG MCHC 33.6 (30-36) % RDW 14.0 (11.6-14.8) % Plt Count 218 (150-400) X10^3/uL Neut % (Auto) 83.9 H (50-75) % Lymph % (Auto) 9.6 L (25-40) % Lanier % (Auto) 6.2 (3-14) % Eos % (Auto) 0.1 L (2-4) % Baso % (Auto) 0.2 (0-2) % Neut # (Auto) 10741 H (2142-8754) /uL Lymph # (Auto) 1200 (3060-4437) /uL Lanier # (Auto) 800 (0-900) /uL Eos # (Auto) 0 (0-450) /uL Baso # (Auto) 0 (0-100) /uL ESR (0-15) MM/HR Sodium (137-145) mmol/L Potassium (3.4-5.1) mmol/L Chloride (98-107) mmol/L Carbon Dioxide (22-32) mmol/L BUN (9-20) mg/dL Creatinine (0.66-1.25) mg/dL Estimated GFR (>60) mL/min BUN/Creatinine Ratio (6-22) Glucose (80-110) mg/dL Uric Acid (3.5-8.5) mg/dL Calcium (8.4-10.2) mg/dL Magnesium (1.6-2.3) mg/dL Total Bilirubin (0.2-1.3) mg/dL AST (17-59) IU/L ALT (<50) IU/L Alkaline Phosphatase (38-126) U/L Total Creatine Kinase (55-170) U/L CK-MB (CK-2) (<2.37) ng/mL CK-MB (CK-2) Rel Index (1.5-5.0) % Troponin I (0.01-0.034) ng/mL C-Reactive Protein (<1.0) mg/dL NT-Pro-B Natriuret Pep (<450) pg/mL Total Protein (6.3-8.2) g/dL Albumin (3.5-5.0) g/dL Globulin (1.7-4.1) g/dL Albumin/Globulin Ratio (1.0-2.8) Procalcitonin (<0.5) ng/mL Fluid Color Fluid Appearance Fluid RBC /uL Fld Tot Nucleated Cell /uL Fluid Polynuclear WBCs % Fluid Mononuclear WBCs % Fluid Eosinophils % Fluid Other Cells % Fluid Crystals (NONE) Body Fluid Clot Point of Care Testing Glucose POC 159 Imaging Data Extremity x-ray #1: Radiologist's Impression: [address] [address] XRay Report Signed Patient: Onesimo Oakley MR#: [id number] : 1940 Acct:[id number] Age/Sex: 80 / M Date of Service: 06/02/21 Loc: ED Accession Number: [id number] ?? Procedure: XR knee RT 3V Ordering Provider: All Marc MD PROCEDURE:? XR KNEE RT 3V ? INDICATIONS:? knee pain and swelling p ? TECHNIQUE:? 3 views of the knee were acquired.? ? COMPARISON:? [facility], , KNEE MIN 4VW (RT), 02/18/2014, 11:00. ? FINDINGS:? ? Bones:? No fractures or dislocations.? No suspicious bony lesions.? ? Soft tissues:? Mild joint effusion.? No suspicious soft tissue calcifications.? ? ? IMPRESSION:? Mild effusion. No visualized acute fracture or dislocation. However, if clinical concern and/or pain persist, short interval imaging followup in 7-10 days is recommended, as occult injury cannot be definitively excluded. ? ? Dictated by: Keyana Gomez M.D. on 06/02/2021 at 12:50 ? ? Approved by: Keyana Gomez M.D. on 06/02/2021 at 12:51 ? Extremity x-ray #2: Radiologist's Impression: [address] [address] [address] Scan Report Signed Patient: Onesimo Oakley MR#: [id number] : 1940 Acct:[id number] Age/Sex: 80 / M Date of Service: 06/02/21 Loc: ED Accession Number: [id number] ?? Procedure: CT LE RT wo con Ordering Provider: All Marc MD PROCEDURE:? CT LE RT WO CON ? INDICATIONS:? Right knee pain ? TECHNIQUE:? Noncontrast 1-1.5 mm axial sections acquired from the mid-patella to the proximal tibia, with coronal and sagittal reformats.? ? COMPARISON:? [facility], CR, XR KNEE RT 3V, 06/02/2021, 12:20. ? FINDINGS:? Image quality:? Excellent.? ? Bones:? No acute osseous fracture or dislocation.? Mild subchondral osteophyte formation is seen in the medial patellar facet.? Small osseous protuberance at the posterior medial aspect of the medial tibial plateau at the semimembranosus tendon insertion is likely a small enthesophyte.? Patellar alignment is normal.? Small superior patellar enthesophytes are present. ? Soft tissues:? Moderate joint effusion.? A small ossified intra-articular loose body is seen within the femorotibial joint space measuring 7 x 7 x 3 mm.? The articular cartilages, menisci, ligaments, and tendons are not well evaluated with CT.? The musculature surrounding the knee is normal in bulk.? Arterial vascular calcifications are present.? There is a small medial popliteal cyst.? ? ? IMPRESSION:? 1. No acute osseous fracture. 2. Small 7 mm ossified loose body within the lateral femorotibial joint space. 3. Mild degenerative changes in the anterior compartment. 4. Moderate joint effusion. 5. Consider MRI for further evaluation of the soft tissue structures if symptoms persist. ? ? Dictated by: Jamir Cantu M.D. on 06/02/2021 at 16:29 ? ? Approved by: Jamir Cantu M.D. on 06/02/2021 at 16:33 ? <Aislinn Clifford, - Last Filed: 06/03/21 03:25> Lab Data Labs: Lab Results 06/02/21 06/02/21 06/02/21 Range/Units 16:10 16:10 16:10 WBC 9.9 (4.5-11.0) X10^3/uL RBC 4.39 L (4.5-5.9) X10^6/uL Hgb 12.3 L (13.5-17.5) g/dL Hct 37.5 L (41-53) % MCV 85.4 (80-100) fL MCH 28.1 (26-34) PG MCHC 32.9 (30-36) % RDW 13.9 (11.6-14.8) % Plt Count 220 (150-400) X10^3/uL Neut % (Auto) 83.6 H (50-75) % Lymph % (Auto) 9.8 L (25-40) % Lanier % (Auto) 6.0 (3-14) % Eos % (Auto) 0.2 L (2-4) % Baso % (Auto) 0.4 (0-2) % Neut # (Auto) 8300 H (8544-8632) /uL Lymph # (Auto) 1000 L (0052-6190) /uL Lanier # (Auto) 600 (0-900) /uL Eos # (Auto) 0 (0-450) /uL Baso # (Auto) 0 (0-100) /uL ESR 61 H (0-15) MM/HR Sodium 135 L (137-145) mmol/L Potassium 4.3 (3.4-5.1) mmol/L Chloride 101 (98-107) mmol/L Carbon Dioxide 26 (22-32) mmol/L BUN 17 (9-20) mg/dL Creatinine 1.13 (0.66-1.25) mg/dL Estimated GFR > 60.0 (>60) mL/min BUN/Creatinine Ratio 15.0 (6-22) Glucose 123 H (80-110) mg/dL Uric Acid 3.4 L (3.5-8.5) mg/dL Calcium 8.7 (8.4-10.2) mg/dL Magnesium (1.6-2.3) mg/dL Total Bilirubin 0.5 (0.2-1.3) mg/dL AST 38 (17-59) IU/L ALT 48 (<50) IU/L Alkaline Phosphatase 68 (38-126) U/L Total Creatine Kinase (55-170) U/L CK-MB (CK-2) (<2.37) ng/mL CK-MB (CK-2) Rel Index (1.5-5.0) % Troponin I (0.01-0.034) ng/mL C-Reactive Protein 5.0 H (<1.0) mg/dL NT-Pro-B Natriuret Pep (<450) pg/mL Total Protein 7.1 (6.3-8.2) g/dL Albumin 3.9 (3.5-5.0) g/dL Globulin 3.2 (1.7-4.1) g/dL Albumin/Globulin Ratio 1.2 (1.0-2.8) Procalcitonin (<0.5) ng/mL Fluid Color Fluid Appearance Fluid RBC /uL Fld Tot Nucleated Cell /uL Fluid Polynuclear WBCs % Fluid Mononuclear WBCs % Fluid Eosinophils % Fluid Other Cells % Fluid Crystals (NONE) Body Fluid Clot 06/02/21 06/02/21 06/02/21 Range/Units 18:39 18:39 20:20 WBC (4.5-11.0) X10^3/uL RBC (4.5-5.9) X10^6/uL Hgb (13.5-17.5) g/dL Hct (41-53) % MCV (80-100) fL MCH (26-34) PG MCHC (30-36) % RDW (11.6-14.8) % Plt Count (150-400) X10^3/uL Neut % (Auto) (50-75) % Lymph % (Auto) (25-40) % [place] % (Auto) (3-14) % Eos % (Auto) (2-4) % Baso % (Auto) (0-2) % Neut # (Auto) (3080-8782) /uL Lymph # (Auto) (0521-0698) /uL [place] # (Auto) (0-900) /uL Eos # (Auto) (0-450) /uL Baso # (Auto) (0-100) /uL ESR (0-15) MM/HR Sodium (137-145) mmol/L Potassium (3.4-5.1) mmol/L Chloride (98-107) mmol/L Carbon Dioxide (22-32) mmol/L BUN (9-20) mg/dL Creatinine (0.66-1.25) mg/dL Estimated GFR (>60) mL/min BUN/Creatinine Ratio (6-22) Glucose (80-110) mg/dL Uric Acid (3.5-8.5) mg/dL Calcium (8.4-10.2) mg/dL Magnesium (1.6-2.3) mg/dL Total Bilirubin (0.2-1.3) mg/dL AST (17-59) IU/L ALT (<50) IU/L Alkaline Phosphatase (38-126) U/L Total Creatine Kinase 182 H (55-170) U/L CK-MB (CK-2) 1.99 (<2.37) ng/mL CK-MB (CK-2) Rel Index 1.1 L (1.5-5.0) % Troponin I 0.015 (0.01-0.034) ng/mL C-Reactive Protein (<1.0) mg/dL NT-Pro-B Natriuret Pep (<450) pg/mL Total Protein (6.3-8.2) g/dL Albumin (3.5-5.0) g/dL Globulin (1.7-4.1) g/dL Albumin/Globulin Ratio (1.0-2.8) Procalcitonin (<0.5) ng/mL Fluid Color [place] Fluid Appearance Hazy Fluid RBC 17418 /uL Fld Tot Nucleated Cell 41235 /uL Fluid Polynuclear WBCs 92 % Fluid Mononuclear WBCs 8 % Fluid Eosinophils 0 % Fluid Other Cells 0 % Fluid Crystals None present (NONE) Body Fluid Clot No clots present 06/02/21 06/02/21 06/02/21 Range/Units 20:20 20:20 20:20 WBC (4.5-11.0) X10^3/uL RBC (4.5-5.9) X10^6/uL Hgb (13.5-17.5) g/dL Hct (41-53) % MCV (80-100) fL MCH (26-34) PG MCHC (30-36) % RDW (11.6-14.8) % Plt Count (150-400) X10^3/uL Neut % (Auto) (50-75) % Lymph % (Auto) (25-40) % [place] % (Auto) (3-14) % Eos % (Auto) (2-4) % Baso % (Auto) (0-2) % Neut # (Auto) (8802-3330) /uL Lymph # (Auto) (8422-2250) /uL [place]ier # (Auto) (0-900) /uL Eos # (Auto) (0-450) /uL Baso # (Auto) (0-100) /uL ESR (0-15) MM/HR Sodium 132 L (137-145) mmol/L Potassium 3.9 (3.4-5.1) mmol/L Chloride 102 (98-107) mmol/L Carbon Dioxide 18 L (22-32) mmol/L BUN 16 (9-20) mg/dL Creatinine 1.27 H (0.66-1.25) mg/dL Estimated GFR 54.8 L (>60) mL/min BUN/Creatinine Ratio 12.6 (6-22) Glucose 157 H (80-110) mg/dL Uric Acid (3.5-8.5) mg/dL Calcium 8.7 (8.4-10.2) mg/dL Magnesium 1.9 (1.6-2.3) mg/dL Total Bilirubin 0.6 (0.2-1.3) mg/dL AST 48 (17-59) IU/L ALT 47 (<50) IU/L Alkaline Phosphatase 62 (38-126) U/L Total Creatine Kinase (55-170) U/L CK-MB (CK-2) (<2.37) ng/mL CK-MB (CK-2) Rel Index (1.5-5.0) % Troponin I (0.01-0.034) ng/mL C-Reactive Protein (<1.0) mg/dL NT-Pro-B Natriuret Pep 438 (<450) pg/mL Total Protein 7.0 (6.3-8.2) g/dL Albumin 3.9 (3.5-5.0) g/dL Globulin 3.1 (1.7-4.1) g/dL Albumin/Globulin Ratio 1.3 (1.0-2.8) Procalcitonin 0.17 (<0.5) ng/mL Fluid Color Fluid Appearance Fluid RBC /uL Fld Tot Nucleated Cell /uL Fluid Polynuclear WBCs % Fluid Mononuclear WBCs % Fluid Eosinophils % Fluid Other Cells % Fluid Crystals (NONE) Body Fluid Clot 06/02/21 Range/Units 20:40 WBC 12.2 H (4.5-11.0) X10^3/uL RBC 4.06 L (4.5-5.9) X10^6/uL Hgb 11.5 L (13.5-17.5) g/dL Hct 34.4 L (41-53) % MCV 84.6 (80-100) fL MCH 28.4 (26-34) PG MCHC 33.6 (30-36) % RDW 14.0 (11.6-14.8) % Plt Count 218 (150-400) X10^3/uL Neut % (Auto) 83.9 H (50-75) % Lymph % (Auto) 9.6 L (25-40) % [place] % (Auto) 6.2 (3-14) % Eos % (Auto) 0.1 L (2-4) % Baso % (Auto) 0.2 (0-2) % Neut # (Auto) 37526 H (2510-1532) /uL Lymph # (Auto) 1200 (3342-1831) /uL [place] # (Auto) 800 (0-900) /uL Eos # (Auto) 0 (0-450) /uL Baso # (Auto) 0 (0-100) /uL ESR (0-15) MM/HR Sodium (137-145) mmol/L Potassium (3.4-5.1) mmol/L Chloride (98-107) mmol/L Carbon Dioxide (22-32) mmol/L BUN (9-20) mg/dL Creatinine (0.66-1.25) mg/dL Estimated GFR (>60) mL/min BUN/Creatinine Ratio (6-22) Glucose (80-110) mg/dL Uric Acid (3.5-8.5) mg/dL Calcium (8.4-10.2) mg/dL Magnesium (1.6-2.3) mg/dL Total Bilirubin (0.2-1.3) mg/dL AST (17-59) IU/L ALT (<50) IU/L Alkaline Phosphatase (38-126) U/L Total Creatine Kinase (55-170) U/L CK-MB (CK-2) (<2.37) ng/mL CK-MB (CK-2) Rel Index (1.5-5.0) % Troponin I (0.01-0.034) ng/mL C-Reactive Protein (<1.0) mg/dL NT-Pro-B Natriuret Pep (<450) pg/mL Total Protein (6.3-8.2) g/dL Albumin (3.5-5.0) g/dL Globulin (1.7-4.1) g/dL Albumin/Globulin Ratio (1.0-2.8) Procalcitonin (<0.5) ng/mL Fluid Color Fluid Appearance Fluid RBC /uL Fld Tot Nucleated Cell /uL Fluid Polynuclear WBCs % Fluid Mononuclear WBCs % Fluid Eosinophils % Fluid Other Cells % Fluid Crystals (NONE) Body Fluid Clot Point of Care Testing Glucose POC [address] scan - head: Radiologist's Impression: PROCEDURE:? CT HEAD/BRAIN WO CON ? INDICATIONS:? fall in bathroom ? TECHNIQUE:? Noncontrast 4.5 mm thick angled axial sections acquired from the foramen magnum to the vertex, with coronal and sagittal reformats.? For radiation dose reduction, the following was used:? automated exposure control, adjustment of mA and/or kV according to patient size.? ? COMPARISON:? None. ? FINDINGS:? Image quality:? Excellent.? ? CSF spaces:? Basal cisterns are patent.? No extra-axial fluid collections.? The ventricles are symmetric in size and shape.? ? Brain:? No intracranial bleeds or masses.? There is cerebral volume loss for age, with resultant ventricular and sulcal prominence.? There are periventricular and deep white matter chronic small vessel ischemic changes.? There is intracranial internal carotid artery atherosclerosis.? ? Skull and face:? Calvarium and visualized facial bones appear intact, without suspicious lesions.? ? Sinuses:? Visualized sinuses and mastoids are clear.? ? IMPRESSION:? ? 1. Age related volume loss and small vessel ischemic change. ? 2. No evidence acute stroke, hemorrhage, or mass. ? 3. No evidence of significant intracranial sequelae of acute trauma. ? ? ? Dictated by: Kem Watts M.D. on 06/02/2021 at 21:40 ? ? Approved by: Kem Watts M.D. on 06/02/2021 at 21:42 ? Chest x-ray: Radiologist's Impression: PROCEDURE:? XR CHEST 1V ? INDICATIONS:? short of breath weakness ? TECHNIQUE:? One view of the chest was acquired.? ? COMPARISON:? [facility], CR, XR CHEST 2V, 05/23/2019, 11:32. ? FINDINGS:? ? Surgical changes and devices:? None.? ? Lungs and pleura:? Lungs are clear.? No pleural effusions or pneumothorax.? ? Mediastinum:? Mediastinal contours appear normal.? Heart size is normal.? ? Bones and chest wall:? No suspicious bony lesions.? Overlying soft tissues appear unremarkable.? ? IMPRESSION:? No evidence acute pulmonary process. ? ? ? Dictated by: Kem Watts M.D. on 06/02/2021 at 20:40 ? ? Approved by: Kem Watts M.D. on 06/02/2021 at 20:40 ? ECG Data Interpretation: Sinus rhythm rate 95 TX interval 224 QRS 136 QTC 492 right bundle-branch block noted, new from previous EKG in 2019 MDM Narrative Medical decision making narrative: Received sign-out from Dr. Marc. Awaiting arthrocentesis fluid results. Patient ambulated to the restroom where he sat on the toilet, tried to use the hand rails to get up but was extremely weak he fell to the ground required assistance from nursing but was overall extremely short of breath diaphoretic tachypneic required multiple assistance to get into the wheelchair and be re- evaluated. Brought back to the room where he had new blood work EKG and head CT. Workup overall reassuring. The patient then tried to get out of bed again when he fell again. Apparently states that he has been falling more. Stephane dill states that is not due to pain. He is afebrile, however now he has mild leukocytosis of 12. Cardiac workup is negative. Arthrocentesis does not show evidence of gout or infection at this time. Patient has now fallen twice in the emergency department he is an unsafe discharge. Cordell HORTA updated patient's symptoms test results agrees with admission Discharge Plan Departure Patient Disposition: Admitted as Observation Clinical Impression: Arthritis, Falling Admit Date/Time: 06/02/21 22:16 Admit Provider: Dianne Landa
[2021-06-02 16:18] LABS: Add Manual Diff / Slide Review NO; Basophils Absolute Auto 0 /uL (0-100); Basophils Percent Auto 0.4 % (0-2); Eosinophils Absolute Auto 0 /uL (0-450); Eosinophils Percent Auto 0.2 % (2-4); Hematocrit 37.5 % (41-53); Hemoglobin 12.3 g/dL (13.5-17.5); Lymphocytes Absolute Auto 1000 /uL (1100-4500); Lymphocytes Percent Auto 9.8 % (25-40); Mean Corpuscular HGB Conc 32.9 % (30-36); Mean Corpuscular Hemoglobin 28.1 PG (26-34); Mean Corpuscular Volume 85.4 fL (80-100); Monocytes Absolute Auto 600 /uL (0-900); Neutrophils Absolute Auto 8300 /uL (1500-7000); Neutrophils Percent Auto 83.6 % (50-75); Platelet Count 220 X10^3/uL (150-400); Red Blood Cell Count 4.39 X10^6/uL (4.5-5.9); Red Cell Distribution Width 13.9 % (11.6-14.8); White Blood Cell Count 9.9 X10^3/uL (4.5-11.0)
[2021-06-02] MEDS: MORPHINE 4 MG/ML INJ IV (16:19)
[2021-06-02] MEDS: ONDANSETRON 4 MG/2 ML INJ IV (16:20)
[2021-06-02 16:33] LABS: Alanine Aminotransferase 48 IU/L (<50); Albumin 3.9 g/dL (3.5-5.0); Albumin Globulin Ratio 1.2 (1.0-2.8); Alkaline Phosphatase 68 U/L (38-126); Aspartate Aminotransferase 38 IU/L (17-59); Bilirubin Total 0.5 mg/dL (0.2-1.3); Blood Urea Nitrogen 17 mg/dL (9-20); Calcium 8.7 mg/dL (8.4-10.2); Carbon Dioxide 26 mmol/L (22-32); Chloride 101 mmol/L (98-107); Estimated Glomerular Filt Rate > 60.0 mL/min (>60); Globulin 3.2 g/dL (1.7-4.1); Glucose 123 mg/dL (80-110); HEMOLYSIS < 15 (0-50); Potassium 4.3 mmol/L (3.4-5.1); Sodium 135 mmol/L (137-145); Total Protein 7.1 g/dL (6.3-8.2)
[2021-06-02 16:53] LABS: Erythrocyte Sedimentation Rate 61 MM/HR (0-15)
[2021-06-02 17:54] LABS: Uric Acid 3.4 mg/dL (3.5-8.5)
[2021-06-02] MEDS: HYDROMORPHONE 1 MG INJ IV (18:34)
[2021-06-02 19:19] LABS: Body Fluid Red Blood Cells 15997 /uL; Body Fluid Tot Nucleated Cells 11742 /uL
[2021-06-02 19:34] LABS: Body Fluid Appearance HAZY; Body Fluid Clotted? NO CLOTS PRESENT; Body Fluid Color PINK
[2021-06-02 19:52] LABS: Eosinophils Body Fluid 0 %; Mononuclear WBC Body Fluid 8 %; Other Cells Body Fluid 0 %; Polynuclear WBC Body Fluid 92 %
[2021-06-02 19:53] LABS: Crystals Body Fluid - IN-HOUSE NONE Present
--- NOTE | 2021-06-02 20:15 | DI.RAD.S_ITS ---
PROCEDURE: XR CHEST 1V INDICATIONS: short of breath weakness TECHNIQUE: One view of the chest was acquired. COMPARISON: [facility], CR, XR CHEST 2V, 05/23/2019, 11:32. FINDINGS: Surgical changes and devices: None. Lungs and pleura: Lungs are clear. No pleural effusions or pneumothorax. Mediastinum: Mediastinal contours appear normal. Heart size is normal. Bones and chest wall: No suspicious bony lesions. Overlying soft tissues appear unremarkable. IMPRESSION: No evidence acute pulmonary process. Dictated by: Kem Watts M.D. on 06/02/2021 at 20:40 Approved by: Kem Watts M.D. on 06/02/2021 at 20:40
[2021-06-02 20:44] LABS: Add Manual Diff / Slide Review NO; Basophils Absolute Auto 0 /uL (0-100); Basophils Percent Auto 0.2 % (0-2); Eosinophils Absolute Auto 0 /uL (0-450); Eosinophils Percent Auto 0.1 % (2-4); Hematocrit 34.4 % (41-53); Hemoglobin 11.5 g/dL (13.5-17.5); Lymphocytes Absolute Auto 1200 /uL (1100-4500); Lymphocytes Percent Auto 9.6 % (25-40); Mean Corpuscular HGB Conc 33.6 % (30-36); Mean Corpuscular Hemoglobin 28.4 PG (26-34); Mean Corpuscular Volume 84.6 fL (80-100); Monocytes Absolute Auto 800 /uL (0-900); Monocytes Percent Auto 6.2 % (3-14); Neutrophils Absolute Auto 10200 /uL (1500-7000); Neutrophils Percent Auto 83.9 % (50-75); Platelet Count 218 X10^3/uL (150-400); Red Blood Cell Count 4.06 X10^6/uL (4.5-5.9); White Blood Cell Count 12.2 X10^3/uL (4.5-11.0)
--- NOTE | 2021-06-02 20:44 | DI.CT.S_ITS ---
PROCEDURE: CT HEAD/BRAIN WO CON INDICATIONS: fall in bathroom TECHNIQUE: Noncontrast 4.5 mm thick angled axial sections acquired from the foramen magnum to the vertex, with coronal and sagittal reformats. For radiation dose reduction, the following was used: automated exposure control, adjustment of mA and/or kV according to patient size. COMPARISON: None. FINDINGS: Image quality: Excellent. CSF spaces: Basal cisterns are patent. No extra-axial fluid collections. The ventricles are symmetric in size and shape. Brain: No intracranial bleeds or masses. There is cerebral volume loss for age, with resultant ventricular and sulcal prominence. There are periventricular and deep white matter chronic small vessel ischemic changes. There is intracranial internal carotid artery atherosclerosis. Skull and face: Calvarium and visualized facial bones appear intact, without suspicious lesions. Sinuses: Visualized sinuses and mastoids are clear. IMPRESSION: 1. Age related volume loss and small vessel ischemic change. 2. No evidence acute stroke, hemorrhage, or mass. 3. No evidence of significant intracranial sequelae of acute trauma. Dictated by: Kem Watts M.D. on 06/02/2021 at 21:40 Approved by: Kem Watts M.D. on 06/02/2021 at 21:42
--- NOTE | 2021-06-02 20:44 | PC.NURSE ---
Pt ambulated with walker to bathroom with no distress noted, this RN knocked on door shortly after r/t call polo aidennicole to which pt answered I'm good in here. Shortly after at approximately 1999 this RN noticed pt to still be in bathroom, knocked again and pt replied just a moment, heavy breathing heard and this RN waited outside bathroom. Pt opened door, was bent over bracing the door and doorway, weak, diaphoretic, labored breathing. This RN assisted to hold pt up standing while wheelchair acquired and pt assisted into wheelchair, Dr. Clifford present. Pt states he was sitting on toilet then had difficult getting up off of the toilet. Pt assisted back to stretcher and shortly after pt no longer diaphoretic and states feels back to baseline.
[2021-06-02 20:48] LABS: Creatine Kinase 182 U/L (55-170)
[2021-06-02 20:50] LABS: Albumin 3.9 g/dL (3.5-5.0); Albumin Globulin Ratio 1.3 (1.0-2.8); Alkaline Phosphatase 62 U/L (38-126); Aspartate Aminotransferase 48 IU/L (17-59); BUN Creatinine Ratio 12.6 (6-22); Bilirubin Total 0.6 mg/dL (0.2-1.3); Blood Urea Nitrogen 16 mg/dL (9-20); Calcium 8.7 mg/dL (8.4-10.2); Carbon Dioxide 18 mmol/L (22-32); Chloride 102 mmol/L (98-107); Estimated Glomerular Filt Rate 54.8 mL/min (>60); Globulin 3.1 g/dL (1.7-4.1); Glucose 157 mg/dL (80-110); HEMOLYSIS < 15 (0-50); Potassium 3.9 mmol/L (3.4-5.1); Sodium 132 mmol/L (137-145)
[2021-06-02 20:56] LABS: Alanine Aminotransferase 47 IU/L (<50)
[2021-06-02 21:01] LABS: Troponin I 0.015 ng/mL (0.01-0.034)
[2021-06-02 21:04] LABS: CKMB % Relative Index 1.1 % (1.5-5.0); Creatine Kinase MB 1.99 ng/mL (<2.37)
--- NOTE | 2021-06-02 22:08 | PC.NURSE ---
Spoke to pt on the phone and she reports while pt was prompted to visit ER today r/t knee, he has had ongoing weakness over the past month. They have stairs in the house and he has turned figueroa with SOB by the time he gets to the top. Pt states she has osteoporosis and having some increasingly difficulty taking care of him.
[2021-06-02 22:28] LABS: Appearance Urine UA CLEAR; Bilirubin Urine UA NEGATIVE (NEGATIVE); Color Urine UA YELLOW; Glucose Urine UA NEGATIVE (Negative); Ketones Urine UA NEGATIVE (NEGATIVE); Leukocyte Esterase Urine UA NEGATIVE (NEGATIVE); Nitrite Urine UA NEGATIVE (Negative); Occult Blood Urine UA 2+ (Negative); Protein Urine UA 1+ (Negative); Specific Gravity Urine UA 1.025 (1.000-1.035); Urobilinogen Urine UA 0.2 E.U./dL (0.2)
[2021-06-02 22:40] LABS: Bacteria Urine None Seen; Culture Indicated Urine Cult Not Indicated; Granular Casts Urine 1-5/LPF; Hyaline Casts Urine 1-5/LPF; Mucus Urine 1+ (Negative); RBC Urine 0-1/HPF (0-5/HPF); WBC Urine 0-1/HPF (0-5/HPF)
[2021-06-02 22:46] LABS: COVID19 -Nasal RAPID Negative (Negative)
[2021-06-02 22:55] LABS: Magnesium 1.9 mg/dL (1.6-2.3)
[2021-06-02 23:05] LABS: NT-proBNP (BNP-Adult 18+) 438 pg/mL (<450)
[2021-06-02] MEDS: ACETAMINOPHEN 325 MG TABLET 650 MG PO (23:09)
[2021-06-02] MEDS: SODIUM CHLORIDE 0.9% 1,000 ML 100 ML IV (23:10)
[2021-06-02] MEDS: IBUPROFEN 600 MG TABLET PO (23:10)
[2021-06-02 23:12] LABS: Procalcitonin 0.17 ng/mL (<0.5)
[2021-06-02 23:21] LABS: Lactate (Lactic Acid) 1.2 mmol/L (0.7-2.1)
[2021-06-02 23:22] LABS: D Dimer 749 ng/mL (<230)
[2021-06-03] VITALS (31 sets, daily range): BP systolic 107–148; BP diastolic 64–78; PULSE 64–79; RESP 12–21; TEMP 36.3–38.3; O2SAT 89–100; BMI 31.4
[2021-06-03] MEDS: ACETAMINOPHEN 325 MG TABLET PO (00:53)
[2021-06-03 04:56] LABS: Add Manual Diff / Slide Review NO; Basophils Absolute Auto 100 /uL (0-100); Basophils Percent Auto 0.6 % (0-2); Eosinophils Absolute Auto 0 /uL (0-450); Hematocrit 35.8 % (41-53); Hemoglobin 12.1 g/dL (13.5-17.5); Lymphocytes Absolute Auto 1000 /uL (1100-4500); Lymphocytes Percent Auto 9.4 % (25-40); Mean Corpuscular HGB Conc 33.7 % (30-36); Mean Corpuscular Hemoglobin 28.5 PG (26-34); Mean Corpuscular Volume 84.6 fL (80-100); Monocytes Absolute Auto 1100 /uL (0-900); Monocytes Percent Auto 9.8 % (3-14); Neutrophils Absolute Auto 8800 /uL (1500-7000); Neutrophils Percent Auto 80.2 % (50-75); Platelet Count 206 X10^3/uL (150-400); Red Blood Cell Count 4.23 X10^6/uL (4.5-5.9); Red Cell Distribution Width 14.2 % (11.6-14.8); White Blood Cell Count 10.9 X10^3/uL (4.5-11.0)
--- NOTE | 2021-06-03 05:05 | P.HP_ITS ---
History of Present Illness History of Present Illness Date Patient Seen: 06/02/21 Time Patient Seen: 22:42 Chief complaint: Right knee swollen - pain level 10 Narrative: Onesimo Oakley is a 80 year old male with a history of BPH with urinary retention, CAD, with aortic stenosis, hyperlipidemia, hypertension, and obesity who presented to the ED with acute right knee pain and swelling x 1 day. Upon admit patient is a poor historian, difficulty completing thoughts and sentences. Patient did receive both morphine and Dilaudid in the ED which may be causing confusion. I am unable to get a clear history. Patient denies injury or surgery.? Painful with any attempts to bend the knee or weight-bearing.? Patient did ambulate by himself with antalgic gait from room to the bathroom and back easily for several hours in the ED.? Dr. Marc tapped the knee and was pl anning on sending the patient home for outpatient follow-up. The patient then suffered 2 falls in the ED, following administration of 1 mg of Dilaudid in 2 mg of morphine. It was then determined the patient was unsafe to be discharged home. Patient complains of fever and chills over the past 2 weeks.? During admit exam patient is extremely diaphoretic agitated restless. His right knee is erythemic, inflamed, warm to touch, and painful to touch with exam. Patient denies chest pain, shortness of breath, abdominal pain, nausea, vomiting, diarrhea, hematemesis, hematuria, melena, numbness, tingling, new swelling of hands or feet, any recent illness, injury , or trauma. No changes in medicaiton. Patient's vitals upon admit temp 97.4?, BP hypertensive 174/81, HR 100, R 29, O2 saturation 96% on room air. Patient has a white count 12.2, neutrophils 10,200, HGB 11.5, HCT 34.4, mild hyponatremia 132 bicarb 18, creatinine 1.27, glucose 157, GFR 54.8. 06/02/2021 creatinine 1.13, GFR>60. Patient has an ESR of 61, uric acid 3.4, total creatinine kinase 22, CRP 5.0, troponin WNL. Dimer 749. Patient's head CT was negative for any intracranial processes, patient's chest x-ray is negative for any acute cardiopulmonary processes, right knee x-ray demonstrated mild effusion. Lower extremity right CT demonstrated no acute osseous fracture, a small 7 mm ossified loose body within the lateral femorotibial joint space, with mild degenerative changes in the anterior compartment, and moderate joint effusion. Arthrocentesis-fluid culture is negative. Patient admitted for right knee pain, with mild hyponatremia. Patient History Medical History BPH (benign prostatic hyperplasia) Chronic insomnia Coronary artery disease Hyperlipidemia Hypertension Lumbar degenerative disc disease Moderate aortic stenosis by prior echocardiogram Restless leg syndrome Urinary incontinence Surgical History Hx of appendectomy (~2018) S/P TURP (~2016) Family & Social History Social History: household members spouse Prior Living Arrangements House Safety & Behavioral: Feels Safe in Current Yes Environment Been Physically Hurt or No Threatened By a Person Suicidal Ideation Description None Suicide Plan Description No Plan Tobacco & Substance use: Smoking Status Never smoker alcohol intake current alcohol intake frequency holiday/special occasion Substance Use Type does not use Meds Home Medications and Allergies Home Medications Medication Instructions Recorded Confirmed Type metoprolol succinate 100 mg 100 mg PO DAILY 04/25/18 06/02/21 History tablet,extended release 24 hr rosuvastatin 5 mg tablet 5 mg PO DAILY 05/23/19 06/02/21 History trospium 20 mg tablet 20 mg PO BEDTIME 05/23/19 06/02/21 History turmeric 1 cap PO DAILY 05/23/19 06/02/21 History amlodipine 5 mg tablet 5 mg PO DAILY 06/02/21 06/02/21 History Allergies Allergy/AdvReac Type Severity Reaction Status Date / Time atorvastatin AdvReac Intermediate Fatigued Verified 06/02/21 12:21 Review of Systems Review of Systems Narrative: All 12 point systems reviewed with the patient and are negative except otherwise documented. Exam Vital Signs (past 8 hours): - 06/02/21 21:13 06/02/21 21:14 06/02/21 21:15 Temperature Pulse Rate 101 H 102 H 100 H Respiratory Rate 23 29 H Blood Pressure 172/81 H 174/81 H Pulse Oximetry 95 96 06/02/21 21:30 06/02/21 21:45 02/24/22 22:00 Temperature Pulse Rate 93 H 93 H 96 H Respiratory Rate 22 24 26 H Blood Pressure 157/70 H 149/72 H Pulse Oximetry 95 94 93 06/02/21 22:01 06/02/21 22:15 06/02/21 22:50 Temperature 102.5 F H Pulse Rate 97 H 99 H 94 H Respiratory Rate 24 33 H 24 Blood Pressure 144/75 H 143/77 H 153/79 H Pulse Oximetry 92 93 99 06/02/21 23:09 06/02/21 23:10 06/02/21 23:15 Temperature 102.5 F H 102.5 F H Pulse Rate Respiratory Rate Blood Pressure Pulse Oximetry 99 06/03/21 00:00 06/03/21 04:50 Temperature 99.5 F 97.3 F L Pulse Rate 68 Respiratory Rate 14 Blood Pressure 121/65 Pulse Oximetry 97 Oxygen Delivery Method Room Air Oxygen Flow Rate 0 Narrative Exam Narrative: General: Patient is a well-developed, well-nourished male who appears younger than stated age, in no distress at this time. HEENT: Normocephalic, atraumatic, extraocular muscles intact, oral pharynx is clear and mucous membranes are moist. Neck is supple and symmetric, trachea is midline, no adenopathy, no thyroid enlargement, nontender, no masses palpated. Negative for JVD Chest: Normal AP diameter and contour without kyphoscoliosis, no nasal flaring, retractions, or tachypneic labored breathing. Lungs: Auscultation of all lung portillo are clear without adventitious sounds, wheezes, rhonchi, or rales. Cardio: regular rate and rhythm with positive murmur, no rubs, or gallop Abdomen: Soft nontender, negative for organomegaly, or masses. Bowel sounds are present in all 4 quadrants without guarding or rebound, no CVA tenderness. Musculoskeletal: Muscle strength and tone are equal within normal limits, no deformity, crepitus, effusions, cyanosis, clubbing or edema present. Full range of motion intact radial and pedal pulses are normal. Skin: Diaphoretic, pink, warm and intact without rashes, ulcerations or petechiae. Extremity: Patient's right knee is erythematous, positive inflammation, warm to touch, she is blanchable, pain to slight touch, popliteal pulse in place. No open wound or drainage noted. Neuro: Alert and orientated, but appears slightly medicated, sedated and confused, sensation to touch intact, no gross deficits noted of cranial nerves. Psych: Patient has a well-kept appearance, agitated, appears rather displeased to be here. Objective Labs Result Diagrams: 06/03/21 04:30 06/02/21 20:20 Labs: Laboratory Results - last 24 hr 06/02/21 06/02/21 06/02/21 16:10 16:10 16:10 WBC 9.9 RBC 4.39 L Hgb 12.3 L Hct 37.5 L MCV 85.4 MCH 28.1 MCHC 32.9 RDW 13.9 Plt Count 220 Neut % (Auto) 83.6 H Lymph % (Auto) 9.8 L [place] % (Auto) 6.0 Eos % (Auto) 0.2 L Baso % (Auto) 0.4 Neut # (Auto) 8300 H Lymph # (Auto) 1000 L [place] # (Auto) 600 Eos # (Auto) 0 Baso # (Auto) 0 ESR 61 H D-Dimer Sodium 135 L Potassium 4.3 Chloride 101 Carbon Dioxide 26 BUN 17 Creatinine 1.13 Estimated GFR > 60.0 BUN/Creatinine Ratio 15.0 Glucose 123 H Lactate Uric Acid 3.4 L Calcium 8.7 Magnesium Total Bilirubin 0.5 AST 38 ALT 48 Alkaline Phosphatase 68 Total Creatine Kinase CK-MB (CK-2) CK-MB (CK-2) Rel Index Troponin I C-Reactive Protein 5.0 H NT-Pro-B Natriuret Pep Total Protein 7.1 Albumin 3.9 Globulin 3.2 Albumin/Globulin Ratio 1.2 Procalcitonin Urine Color Urine Appearance Urine pH Ur Specific [place] Urine Protein Urine Glucose (UA) Urine Ketones Urine Occult Blood Urine Nitrate Urine Bilirubin Urine Urobilinogen Ur Leukocyte Esterase Urine RBC Urine WBC Urine Bacteria Hyaline Casts Granular Casts Urine Mucus Ur Culture Indicated? Fluid Color Fluid Appearance Fluid RBC Fld Tot Nucleated Cell Fluid Polynuclear WBCs Fluid Mononuclear WBCs Fluid Eosinophils Fluid Other Cells Fluid Crystals Body Fluid Clot SARS-CoV-2 (PCR) 06/02/21 06/02/21 06/02/21 18:39 18:39 20:20 WBC RBC Hgb Hct MCV MCH MCHC RDW Plt Count Neut % (Auto) Lymph % (Auto) [place] % (Auto) Eos % (Auto) Baso % (Auto) Neut # (Auto) Lymph # (Auto) [place] # (Auto) Eos # (Auto) Baso # (Auto) ESR D-Dimer Sodium Potassium Chloride Carbon Dioxide BUN Creatinine Estimated GFR BUN/Creatinine Ratio Glucose Lactate Uric Acid Calcium Magnesium Total Bilirubin AST ALT Alkaline Phosphatase Total Creatine Kinase 182 H CK-MB (CK-2) 1.99 CK-MB (CK-2) Rel Index 1.1 L Troponin I 0.015 C-Reactive Protein NT-Pro-B Natriuret Pep Total Protein Albumin Globulin Albumin/Globulin Ratio Procalcitonin Urine Color Urine Appearance Urine pH Ur Specific [place] Urine Protein Urine Glucose (UA) Urine Ketones Urine Occult Blood Urine Nitrate Urine Bilirubin Urine Urobilinogen Ur Leukocyte Esterase Urine RBC Urine WBC Urine Bacteria Hyaline Casts Granular Casts Urine Mucus Ur Culture Indicated? Fluid Color [place] Fluid Appearance Hazy Fluid RBC 02887 Fld Tot Nucleated Cell 16837 Fluid Polynuclear WBCs 92 Fluid Mononuclear WBCs 8 Fluid Eosinophils 0 Fluid Other Cells 0 Fluid Crystals None present Body Fluid Clot No clots present SARS-CoV-2 (PCR) 06/02/21 06/02/21 06/02/21 20:20 20:20 20:20 WBC RBC Hgb Hct MCV MCH MCHC RDW Plt Count Neut % (Auto) Lymph % (Auto) [place] % (Auto) Eos % (Auto) Baso % (Auto) Neut # (Auto) Lymph # (Auto) [place] # (Auto) Eos # (Auto) Baso # (Auto) ESR D-Dimer Sodium 132 L Potassium 3.9 Chloride 102 Carbon Dioxide 18 L BUN 16 Creatinine 1.27 H Estimated GFR 54.8 L BUN/Creatinine Ratio 12.6 Glucose 157 H Lactate Uric Acid Calcium 8.7 Magnesium 1.9 Total Bilirubin 0.6 AST 48 ALT 47 Alkaline Phosphatase 62 Total Creatine Kinase CK-MB (CK-2) CK-MB (CK-2) Rel Index Troponin I C-Reactive Protein NT-Pro-B Natriuret Pep 438 Total Protein 7.0 Albumin 3.9 Globulin 3.1 Albumin/Globulin Ratio 1.3 Procalcitonin 0.17 Urine Color Urine Appearance Urine pH Ur Specific [place] Urine Protein Urine Glucose (UA) Urine Ketones Urine Occult Blood Urine Nitrate Urine Bilirubin Urine Urobilinogen Ur Leukocyte Esterase Urine RBC Urine WBC Urine Bacteria Hyaline Casts Granular Casts Urine Mucus Ur Culture Indicated? Fluid Color Fluid Appearance Fluid RBC Fld Tot Nucleated Cell Fluid Polynuclear WBCs Fluid Mononuclear WBCs Fluid Eosinophils Fluid Other Cells Fluid Crystals Body Fluid Clot SARS-CoV-2 (PCR) 06/02/21 06/02/21 06/02/21 20:40 22:20 22:24 WBC 12.2 H RBC 4.06 L Hgb 11.5 L Hct 34.4 L MCV 84.6 MCH 28.4 MCHC 33.6 RDW 14.0 Plt Count 218 Neut % (Auto) 83.9 H Lymph % (Auto) 9.6 L [place] % (Auto) 6.2 Eos % (Auto) 0.1 L Baso % (Auto) 0.2 Neut # (Auto) 08905 H Lymph # (Auto) 1200 [place] # (Auto) 800 Eos # (Auto) 0 Baso # (Auto) 0 ESR D-Dimer Sodium Potassium Chloride Carbon Dioxide BUN Creatinine Estimated GFR BUN/Creatinine Ratio Glucose Lactate Uric Acid Calcium Magnesium Total Bilirubin AST ALT Alkaline Phosphatase Total Creatine Kinase CK-MB (CK-2) CK-MB (CK-2) Rel Index Troponin I C-Reactive Protein NT-Pro-B Natriuret Pep Total Protein Albumin Globulin Albumin/Globulin Ratio Procalcitonin Urine Color Yellow Urine Appearance Clear Urine pH 5.0 Ur Specific [place] 1.025 Urine Protein 1+ H Urine Glucose (UA) Negative Urine Ketones Negative Urine Occult Blood 2+ H Urine Nitrate Negative Urine Bilirubin Negative Urine Urobilinogen 0.2 Ur Leukocyte Esterase Negative Urine RBC 0-1/hpf Urine WBC 0-1/hpf Urine Bacteria None seen Hyaline Casts 1-5/lpf Granular Casts 1-5/lpf Urine Mucus 1+ H Ur Culture Indicated? Cult not indicated Fluid Color Fluid Appearance Fluid RBC Fld Tot Nucleated Cell Fluid Polynuclear WBCs Fluid Mononuclear WBCs Fluid Eosinophils Fluid Other Cells Fluid Crystals Body Fluid Clot SARS-CoV-2 (PCR) Negative 06/02/21 06/02/21 06/03/21 22:51 22:51 04:30 WBC 10.9 RBC 4.23 L Hgb 12.1 L Hct 35.8 L MCV 84.6 MCH 28.5 MCHC 33.7 RDW 14.2 Plt Count 206 Neut % (Auto) 80.2 H Lymph % (Auto) 9.4 L [place] % (Auto) 9.8 Eos % (Auto) 0.0 L Baso % (Auto) 0.6 Neut # (Auto) 8800 H Lymph # (Auto) 1000 L [place] # (Auto) 1100 H Eos # (Auto) 0 Baso # (Auto) 100 ESR D-Dimer 749 H Sodium Potassium Chloride Carbon Dioxide BUN Creatinine Estimated GFR BUN/Creatinine Ratio Glucose Lactate 1.2 Uric Acid Calcium Magnesium Total Bilirubin AST ALT Alkaline Phosphatase Total Creatine Kinase CK-MB (CK-2) CK-MB (CK-2) Rel Index Troponin I C-Reactive Protein NT-Pro-B Natriuret Pep Total Protein Albumin Globulin Albumin/Globulin Ratio Procalcitonin Urine Color Urine Appearance Urine pH Ur Specific [place] Urine Protein Urine Glucose (UA) Urine Ketones Urine Occult Blood Urine Nitrate Urine Bilirubin Urine Urobilinogen Ur Leukocyte Esterase Urine RBC Urine WBC Urine Bacteria Hyaline Casts Granular Casts Urine Mucus Ur Culture Indicated? Fluid Color Fluid Appearance Fluid RBC Fld Tot Nucleated Cell Fluid Polynuclear WBCs Fluid Mononuclear WBCs Fluid Eosinophils Fluid Other Cells Fluid Crystals Body Fluid Clot SARS-CoV-2 (PCR) Assessment & Plan Assessment & Plan narrative: Onesimo Oakley is a 80 year old male with a history of BPH with urinary retention, CAD, with aortic stenosis, hyperlipidemia, hypertension, and obesity who presented to the ED with acute right knee pain and swelling x 1 day. Patient considered being discharged home was admitted for right knee pain after falling twice in the emergency department. I suspect that patient was over medicated with morphine and Dilaudid, leading to his falls in the ED after several hours of safe ambulation. 1. Ground level fall secondary to right knee pain, (inflammation) acute, present on admission- unknown etiology -Patient was over medicated in ED for pain of the right knee leading to falls x2 in the unit. -arthrocentesis body fluids were negative for infection. -Consider Rt Knee MRI? -Ice, elevated right knee -patient does have an elevated white count, ESR, and CRP. -Rocephin 2grams now, 1 gram Q24hrs -Pain management, anti-inflammatories -Recommend out-patient follow up with ortho. 2. Mild hyponatremia, acute, with mild OPAL, acute, present on admission -sodium 132, creatinine 1.27, glucose 157, GFR 54.8. 06/02/2021 creatinine 1.13, GFR>60. -NS at 100 cc/HR 3. Essential hypertension, acute on chronic, present on admission -patient's initial blood pressure is 174/81, 172/81 -continue patient's metoprolol 4. Hyperlipidemia, chronic, present on admission -continue rosuvastatin 5. BPH with lower urinary tract symptoms, and urinary retention, acute on chronic, present on admission -continue trospium 6. Overweight as evidence by BMI of 31.4, acute on chronic, present on admission -Dietary consult placed Code status:Full Surrogate decision maker: Nehal MONZON PCR:Negative COVID vaccination:Unknown DVT/VTE prophylaxis: Lovenox and SCD on left only. Disposition: Patient admitted for observation expected length of stay less than 2 midnights I have utilized all available immediate resources to obtain, update, or review the patient's current medications. I confirmed that the patient's advanced care plan is present, Code status is documented and/or surrogate decision maker is listed in the patient's medical record. Time Spent With Patient Critical Care time: I spent a total of [] minutes of critical care time on this patient's care today; this time is exclusive of procedural time. Quality VTE Deep Vein Thrombosis/Pulmonary Embolism Present on Admission: No
[2021-06-03 05:09] LABS: Alanine Aminotransferase 41 IU/L (<50); Albumin 3.6 g/dL (3.5-5.0); Albumin Globulin Ratio 1.2 (1.0-2.8); Alkaline Phosphatase 53 U/L (38-126); Aspartate Aminotransferase 32 IU/L (17-59); BUN Creatinine Ratio 14.3 (6-22); Bilirubin Total 0.7 mg/dL (0.2-1.3); Blood Urea Nitrogen 17 mg/dL (9-20); Calcium 8.4 mg/dL (8.4-10.2); Carbon Dioxide 27 mmol/L (22-32); Chloride 102 mmol/L (98-107); Estimated Glomerular Filt Rate 59.1 mL/min (>60); Globulin 2.9 g/dL (1.7-4.1); Glucose 129 mg/dL (80-110); HEMOLYSIS < 15 (0-50); Sodium 133 mmol/L (137-145); Total Protein 6.5 g/dL (6.3-8.2)
[2021-06-03] MEDS: cefTRIAXone 2,000 MG in SODIUM CHLORIDE 0.9% 100 ML 200 ML IV (06:35)
[2021-06-03] MEDS: METOPROLOL ER 50 MG TABLET 100 MG PO (09:51)
[2021-06-03] MEDS: SODIUM CHLORIDE 0.9% 1,000 ML 100 ML IV ×2 (09:52→22:16)
[2021-06-03] MEDS: HYDROMORPHONE 0.5 MG INJ IV ×2 (10:04→22:15)
--- NOTE | 2021-06-03 11:56 | CM.DANOTE ---
DCP: Case received, EMR reviewed and met with patient. Introduced self and role. Was able to obtain information regarding patient's baseline activity level prior to hospitalization. DCP assessment completed with information currently available. Patient is a 80 year old male who admitted yesterday evening to the care of the hospitalist team. PCP: Dr. Duffy. Payer: confirmed: Medicare/[employer]. Patient came to the hospital via private vehicle secondary to pain in his right knee, as well as some swelling. According to notes, patient poor historian, unable to get a clear history. Patient had attempted weight bering in the ER for several hours, had been given some pain medication. He then had two falls in the ER, and deemed unsafe for discharge. Patient has history of BPH with urinary retention, aortic stenosis, and obesity. Discussed patient during tem rounds. It is noted that patient has a septic knee, he had developed a fever, and will have a knee washout possibly today, with ortho. He also has P.T, and O.T. orders which are pending. Met with patient in his room. He answered questions, somewhat of flat effect. He resides in [facility] with his spouse, Nehal. He informed this manager of case management that at his baseline he drives, and walks with no DME. He does not know what happened to his knee, he just can't bend it. P: DCP to continue to follow. Patient will have his procedure, and will see how he does afterward with P.T. He may possibly need skilled rehab, depending upon activity and inpatient status. Pat Marroquin RN/Lithographic Platemaker Discharge Planning/Care Management CM Discharge Assessment Start: 06/03/21 11:54 Freq: Status: Active Protocol: Document 06/03/21 11:54 (Rec: 06/03/21 11:56 [id number]) Discharge Planning Assessment Assigned Radiation Protection Specialist Pat Marroquin RN/Lithographic Platemaker Advance Directives? No History Provided By Patient,Medical Record Prior Living Arrangements House Household Members spouse Type of transporation used prior to Drives own vehicle admit Independent with ADL's Yes Is patient alert and oriented? Yes Caregiver for Another No Comment If patient is unable to bear weight, may need correction. Will see how patient does post surgery. Discharge Plan Home Transportation Arrangement Family Referrals Initiated None needed Whiteboard Updated in Patient Room with Yes name and ext. # of Radiation Protection Specialist Review Status In Process Next Review Type Continued Stay Review
--- NOTE | 2021-06-03 12:41 | OT.IPNOTE ---
Hold of OT román as pt to have I and D for right knee.
--- NOTE | 2021-06-03 12:49 | P.CONS_ITS ---
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 He also began to have significant chills at home. The knee pain became severe enough that he presented to the emergency room for evaluation. An aspiration of the knee was performed in the emergency room. He was admitted to the hospital with presumptive septic arthritis. Orthopedic consultation has been obtained for definitive management of the infection. He has been started on ceftriaxone and vancomycin intravenously. Temperature was as high as 102.5? F but he is currently afebrile. Meds Home Medications and Allergies Home Medications Medication Instructions Recorded Confirmed Type metoprolol succinate 100 mg 100 mg PO DAILY 04/25/18 06/02/21 History tablet,extended release 24 hr rosuvastatin 5 mg tablet 5 mg PO DAILY 05/23/19 06/02/21 History trospium 20 mg tablet 20 mg PO BEDTIME 05/23/19 06/02/21 History turmeric 1 cap PO DAILY 05/23/19 06/02/21 History amlodipine 5 mg tablet 5 mg PO DAILY 06/02/21 06/02/21 History Allergies Allergy/AdvReac Type Severity Reaction Status Date / Time atorvastatin AdvReac Intermediate Fatigued Verified 06/02/21 12:21 Review of Systems Review of Systems Narrative: The patient notes that he has been suffering from chills but not fevers at home. Exam Vital Signs (past 8 hours): - 06/03/21 04:50 06/03/21 07:00 06/03/21 08:25 Temperature 97.3 F L 97.4 F L Pulse Rate 68 64 Respiratory Rate 14 18 Blood Pressure 121/65 122/75 Pulse Oximetry 97 97 100 06/03/21 09:46 06/03/21 09:51 06/03/21 11:00 Temperature Pulse Rate 68 Respiratory Rate Blood Pressure 125/78 Pulse Oximetry 97 97 Oxygen Delivery Method Room Air Oxygen Flow Rate 0 Narrative Exam Narrative: Right knee exam is notable for bruising and needle willams in the suprapatellar pouch region medially from a prior aspiration. There is a mild to moderate effusion. He is tender to palpation on both medial lateral joint line and there is pain with motion of the knee. This does not appear to be extreme. He has a soft calf. He has intact light touch and motion in the right lower extremity di stal to the knee. Objective Labs Result Diagrams: 06/03/21 04:30 06/03/21 04:30 Labs: Laboratory Results - last 24 hr 06/02/21 06/02/21 06/02/21 16:10 16:10 16:10 WBC 9.9 RBC 4.39 L Hgb 12.3 L Hct 37.5 L MCV 85.4 MCH 28.1 MCHC 32.9 RDW 13.9 Plt Count 220 Neut % (Auto) 83.6 H Lymph % (Auto) 9.8 L [place] % (Auto) 6.0 Eos % (Auto) 0.2 L Baso % (Auto) 0.4 Neut # (Auto) 8300 H Lymph # (Auto) 1000 L [place] # (Auto) 600 Eos # (Auto) 0 Baso # (Auto) 0 ESR 61 H D-Dimer Sodium 135 L Potassium 4.3 Chloride 101 Carbon Dioxide 26 BUN 17 Creatinine 1.13 Estimated GFR > 60.0 BUN/Creatinine Ratio 15.0 Glucose 123 H Lactate Uric Acid 3.4 L Calcium 8.7 Magnesium Total Bilirubin 0.5 AST 38 ALT 48 Alkaline Phosphatase 68 Total Creatine Kinase CK-MB (CK-2) CK-MB (CK-2) Rel Index Troponin I C-Reactive Protein 5.0 H NT-Pro-B Natriuret Pep Total Protein 7.1 Albumin 3.9 Globulin 3.2 Albumin/Globulin Ratio 1.2 Procalcitonin Urine Color Urine Appearance Urine pH Ur Specific [place] Urine Protein Urine Glucose (UA) Urine Ketones Urine Occult Blood Urine Nitrate Urine Bilirubin Urine Urobilinogen Ur Leukocyte Esterase Urine RBC Urine WBC Urine Bacteria Hyaline Casts Granular Casts Urine Mucus Ur Culture Indicated? Fluid Color Fluid Appearance Fluid RBC Fld Tot Nucleated Cell Fluid Polynuclear WBCs Fluid Mononuclear WBCs Fluid Eosinophils Fluid Other Cells Fluid Crystals Body Fluid Clot SARS-CoV-2 (PCR) 06/02/21 06/02/21 06/02/21 18:39 18:39 20:20 WBC RBC Hgb Hct MCV MCH MCHC RDW Plt Count Neut % (Auto) Lymph % (Auto) [place] % (Auto) Eos % (Auto) Baso % (Auto) Neut # (Auto) Lymph # (Auto) [place] # (Auto) Eos # (Auto) Baso # (Auto) ESR D-Dimer Sodium Potassium Chloride Carbon Dioxide BUN Creatinine Estimated GFR BUN/Creatinine Ratio Glucose Lactate Uric Acid Calcium Magnesium Total Bilirubin AST ALT Alkaline Phosphatase Total Creatine Kinase 182 H CK-MB (CK-2) 1.99 CK-MB (CK-2) Rel Index 1.1 L Troponin I 0.015 C-Reactive Protein NT-Pro-B Natriuret Pep Total Protein Albumin Globulin Albumin/Globulin Ratio Procalcitonin Urine Color Urine Appearance Urine pH Ur Specific [place] Urine Protein Urine Glucose (UA) Urine Ketones Urine Occult Blood Urine Nitrate Urine Bilirubin Urine Urobilinogen Ur Leukocyte Esterase Urine RBC Urine WBC Urine Bacteria Hyaline Casts Granular Casts Urine Mucus Ur Culture Indicated? Fluid Color Andres Fluid Appearance Hazy Fluid RBC 39223 Fld Tot Nucleated Cell 85561 Fluid Polynuclear WBCs 92 Fluid Mononuclear WBCs 8 Fluid Eosinophils 0 Fluid Other Cells 0 Fluid Crystals None present Body Fluid Clot No clots present SARS-CoV-2 (PCR) 06/02/21 06/02/21 06/02/21 20:20 20:20 20:20 WBC RBC Hgb Hct MCV MCH MCHC RDW Plt Count Neut % (Auto) Lymph % (Auto) [place] % (Auto) Eos % (Auto) Baso % (Auto) Neut # (Auto) Lymph # (Auto) [place] # (Auto) Eos # (Auto) Baso # (Auto) ESR D-Dimer Sodium 132 L Potassium 3.9 Chloride 102 Carbon Dioxide 18 L BUN 16 Creatinine 1.27 H Estimated GFR 54.8 L BUN/Creatinine Ratio 12.6 Glucose 157 H Lactate Uric Acid Calcium 8.7 Magnesium 1.9 Total Bilirubin 0.6 AST 48 ALT 47 Alkaline Phosphatase 62 Total Creatine Kinase CK-MB (CK-2) CK-MB (CK-2) Rel Index Troponin I C-Reactive Protein NT-Pro-B Natriuret Pep 438 Total Protein 7.0 Albumin 3.9 Globulin 3.1 Albumin/Globulin Ratio 1.3 Procalcitonin 0.17 Urine Color Urine Appearance Urine pH Ur Specific [place] Urine Protein Urine Glucose (UA) Urine Ketones Urine Occult Blood Urine Nitrate Urine Bilirubin Urine Urobilinogen Ur Leukocyte Esterase Urine RBC Urine WBC Urine Bacteria Hyaline Casts Granular Casts Urine Mucus Ur Culture Indicated? Fluid Color Fluid Appearance Fluid RBC Fld Tot Nucleated Cell Fluid Polynuclear WBCs Fluid Mononuclear WBCs Fluid Eosinophils Fluid Other Cells Fluid Crystals Body Fluid Clot SARS-CoV-2 (PCR) 06/02/21 06/02/21 06/02/21 20:40 22:20 22:24 WBC 12.2 H RBC 4.06 L Hgb 11.5 L Hct 34.4 L MCV 84.6 MCH 28.4 MCHC 33.6 RDW 14.0 Plt Count 218 Neut % (Auto) 83.9 H Lymph % (Auto) 9.6 L [place] % (Auto) 6.2 Eos % (Auto) 0.1 L Baso % (Auto) 0.2 Neut # (Auto) 67169 H Lymph # (Auto) 1200 [place] # (Auto) 800 Eos # (Auto) 0 Baso # (Auto) 0 ESR D-Dimer Sodium Potassium Chloride Carbon Dioxide BUN Creatinine Estimated GFR BUN/Creatinine Ratio Glucose Lactate Uric Acid Calcium Magnesium Total Bilirubin AST ALT Alkaline Phosphatase Total Creatine Kinase CK-MB (CK-2) CK-MB (CK-2) Rel Index Troponin I C-Reactive Protein NT-Pro-B Natriuret Pep Total Protein Albumin Globulin Albumin/Globulin Ratio Procalcitonin Urine Color Yellow Urine Appearance Clear Urine pH 5.0 Ur Specific [place] 1.025 Urine Protein 1+ H Urine Glucose (UA) Negative Urine Ketones Negative Urine Occult Blood 2+ H Urine Nitrate Negative Urine Bilirubin Negative Urine Urobilinogen 0.2 Ur Leukocyte Esterase Negative Urine RBC 0-1/hpf Urine WBC 0-1/hpf Urine Bacteria None seen Hyaline Casts 1-5/lpf Granular Casts 1-5/lpf Urine Mucus 1+ H Ur Culture Indicated? Cult not indicated Fluid Color Fluid Appearance Fluid RBC Fld Tot Nucleated Cell Fluid Polynuclear WBCs Fluid Mononuclear WBCs Fluid Eosinophils Fluid Other Cells Fluid Crystals Body Fluid Clot SARS-CoV-2 (PCR) Negative 06/02/21 06/02/21 06/03/21 22:51 22:51 04:30 WBC 10.9 RBC 4.23 L Hgb 12.1 L Hct 35.8 L MCV 84.6 MCH 28.5 MCHC 33.7 RDW 14.2 Plt Count 206 Neut % (Auto) 80.2 H Lymph % (Auto) 9.4 L [place] % (Auto) 9.8 Eos % (Auto) 0.0 L Baso % (Auto) 0.6 Neut # (Auto) 8800 H Lymph # (Auto) 1000 L [place] # (Auto) 1100 H Eos # (Auto) 0 Baso # (Auto) 100 ESR D-Dimer 749 H Sodium Potassium Chloride Carbon Dioxide BUN Creatinine Estimated GFR BUN/Creatinine Ratio Glucose Lactate 1.2 Uric Acid Calcium Magnesium Total Bilirubin AST ALT Alkaline Phosphatase Total Creatine Kinase CK-MB (CK-2) CK-MB (CK-2) Rel Index Troponin I C-Reactive Protein NT-Pro-B Natriuret Pep Total Protein Albumin Globulin Albumin/Globulin Ratio Procalcitonin Urine Color Urine Appearance Urine pH Ur Specific [place] Urine Protein Urine Glucose (UA) Urine Ketones Urine Occult Blood Urine Nitrate Urine Bilirubin Urine Urobilinogen Ur Leukocyte Esterase Urine RBC Urine WBC Urine Bacteria Hyaline Casts Granular Casts Urine Mucus Ur Culture Indicated? Fluid Color Fluid Appearance Fluid RBC Fld Tot Nucleated Cell Fluid Polynuclear WBCs Fluid Mononuclear WBCs Fluid Eosinophils Fluid Other Cells Fluid Crystals Body Fluid Clot SARS-CoV-2 (PCR) 06/03/21 04:30 WBC RBC Hgb Hct MCV MCH MCHC RDW Plt Count Neut % (Auto) Lymph % (Auto) [place] % (Auto) Eos % (Auto) Baso % (Auto) Neut # (Auto) Lymph # (Auto) [place] # (Auto) Eos # (Auto) Baso # (Auto) ESR D-Dimer Sodium 133 L Potassium 4.0 Chloride 102 Carbon Dioxide 27 BUN 17 Creatinine 1.19 Estimated GFR 59.1 L BUN/Creatinine Ratio 14.3 Glucose 129 H Lactate Uric Acid Calcium 8.4 Magnesium Total Bilirubin 0.7 AST 32 ALT 41 Alkaline Phosphatase 53 Total Creatine Kinase CK-MB (CK-2) CK-MB (CK-2) Rel Index Troponin I C-Reactive Protein NT-Pro-B Natriuret Pep Total Protein 6.5 Albumin 3.6 Globulin 2.9 Albumin/Globulin Ratio 1.2 Procalcitonin Urine Color Urine Appearance Urine pH Ur Specific [place] Urine Protein Urine Glucose (UA) Urine Ketones Urine Occult Blood Urine Nitrate Urine Bilirubin Urine Urobilinogen Ur Leukocyte Esterase Urine RBC Urine WBC Urine Bacteria Hyaline Casts Granular Casts Urine Mucus Ur Culture Indicated? Fluid Color Fluid Appearance Fluid RBC Fld Tot Nucleated Cell Fluid Polynuclear WBCs Fluid Mononuclear WBCs Fluid Eosinophils Fluid Other Cells Fluid Crystals Body Fluid Clot SARS-CoV-2 (PCR) [facility] Medical History BPH (benign prostatic hyperplasia) Chronic insomnia Coronary artery disease Hyperlipidemia Hypertension Lumbar degenerative disc disease Moderate aortic stenosis by prior echocardiogram Restless leg syndrome Urinary incontinence Surgical History Hx of appendectomy (~2018) S/P TURP (~2017) Social History household members: spouse Tobacco & Substance Use Smoking Status: Never smoker alcohol intake: current Assessment & Plan Assessment & Plan narrative: The white cell count in his aspirate is slightly more than 11,000. This is not typical for a florid septic arthritis however he does have high fevers and chills. The knee is a source of pain for him. There were no crystals in the knee when it was aspirated. Presumptively he appears to have a septic arthritis which is beginning to worsen. He has the option of either treating this with serial aspirations and continued IV antibiotics or proceeding with an arthroscopic washout and placement of drains. We have talked about these 2 options. We discussed the risks and benefits of each choice. He has elected to proceed with arthroscopic washout of his knee with placement of drains. Risks discussed included but were not limited to: Failure to improve, need for further debridement the future, stiffness, cartilage damage, and anesthetic complications such as stroke, coma, myocardial infarction, permanent paralysis and . He is given his signed informed consent to proceed. COVID-19 COVID-19 status: Negative Result date/Date tested (Pos, Neg/Pending): 06/02/21 Time Spent With Patient Critical Care time: I spent a total of [] minutes of critical care time on this patient's care today; this time is exclusive of procedural time.
--- NOTE | 2021-06-03 13:01 | PT-IP ANOTE ---
Pt scheduled for I&D on his R knee this afternoon. PT eval on hold and f/u after surgery.
--- NOTE | 2021-06-03 14:11 | PM.PN.1 ---
Subjective Subjective Date Patient Seen: 06/03/21 Time Patient Seen: 14:11 Interval history: 80 year old male presented with R knee pain and difficulty ambulating. Developed high fever overnight, started antibiotics this AM, discussed with orthopedics whom recommended a washout of his R knee. Exam Vital Signs (past 8 hours): - 06/03/21 07:00 06/03/21 08:25 06/03/21 09:46 Temperature 97.4 F L Pulse Rate 64 Respiratory Rate 18 Blood Pressure 122/75 Pulse Oximetry 97 100 97 06/03/21 09:51 06/03/21 11:00 06/03/21 13:03 Temperature Pulse Rate 68 Respiratory Rate Blood Pressure 125/78 Pulse Oximetry 97 97 Oxygen Delivery Method Room Air Oxygen Flow Rate 0 Narrative Exam Narrative: General:? Patient is well developed and well nourished, in no distress at this time. HEENT:? Normocephalic, atraumatic, extraocular muscles intact, oral pharynx is clear and mucous membranes are moist. Neck: supple and symmetric, trachea is midline, no cervical adenopathy. Negative for JVD Chest:? Normal AP diameter and contour without kyphoscoliosis, no tachypnea, equal chest rise bilaterally. Lungs:? CTA b/l no wheezing rhonchi or rales. Cardio:?RRR no m/r/g. Abdomen: S NT ND. No CVA tenderness. Musculoskeletal:? R knee effusion, mildly tender to palpation. minimal erythema, no warmth. Puncture skyler from aspiration is seen laterally and superiorly to the knee. He is barely able to flex at his R knee joint and not without significant pain. Extremities: No edema. No cyanosis or clubbing. Skin:? Pale,? Warm to touch,dry and intact without rashes, ulcerations or petechiae.? Neuro:? Alert and orientated x3,? sensation to touch intact in all extremities, no gross deficits noted of cranial nerves. Psych:? Patient has a well-kept appearance, appropriate affect, mental status attitude thought context and judgment are appropriate for age. Objective Labs Result Diagrams: 06/03/21 04:30 06/03/21 04:30 Labs: Laboratory Results - last 24 hr 06/02/21 06/02/21 06/02/21 16:10 16:10 16:10 WBC 9.9 RBC 4.39 L Hgb 12.3 L Hct 37.5 L MCV 85.4 MCH 28.1 MCHC 32.9 RDW 13.9 Plt Count 220 Neut % (Auto) 83.6 H Lymph % (Auto) 9.8 L Buchanan % (Auto) 6.0 Eos % (Auto) 0.2 L Baso % (Auto) 0.4 Neut # (Auto) 8300 H Lymph # (Auto) 1000 L Buchanan # (Auto) 600 Eos # (Auto) 0 Baso # (Auto) 0 ESR 61 H D-Dimer Sodium 135 L Potassium 4.3 Chloride 101 Carbon Dioxide 26 BUN 17 Creatinine 1.13 Estimated GFR > 60.0 BUN/Creatinine Ratio 15.0 Glucose 123 H Lactate Uric Acid 3.4 L Calcium 8.7 Magnesium Total Bilirubin 0.5 AST 38 ALT 48 Alkaline Phosphatase 68 Total Creatine Kinase CK-MB (CK-2) CK-MB (CK-2) Rel Index Troponin I C-Reactive Protein 5.0 H NT-Pro-B Natriuret Pep Total Protein 7.1 Albumin 3.9 Globulin 3.2 Albumin/Globulin Ratio 1.2 Procalcitonin Urine Color Urine Appearance Urine pH Ur Specific [place] Urine Protein Urine Glucose (UA) Urine Ketones Urine Occult Blood Urine Nitrate Urine Bilirubin Urine Urobilinogen Ur Leukocyte Esterase Urine RBC Urine WBC Urine Bacteria Hyaline Casts Granular Casts Urine Mucus Ur Culture Indicated? Fluid Color Fluid Appearance Fluid RBC Fld Tot Nucleated Cell Fluid Polynuclear WBCs Fluid Mononuclear WBCs Fluid Eosinophils Fluid Other Cells Fluid Crystals Body Fluid Clot SARS-CoV-2 (PCR) 06/02/21 06/02/21 06/02/21 18:39 18:39 20:20 WBC RBC Hgb Hct MCV MCH MCHC RDW Plt Count Neut % (Auto) Lymph % (Auto) Buchanan % (Auto) Eos % (Auto) Baso % (Auto) Neut # (Auto) Lymph # (Auto) Buchanan # (Auto) Eos # (Auto) Baso # (Auto) ESR D-Dimer Sodium Potassium Chloride Carbon Dioxide BUN Creatinine Estimated GFR BUN/Creatinine Ratio Glucose Lactate Uric Acid Calcium Magnesium Total Bilirubin AST ALT Alkaline Phosphatase Total Creatine Kinase 182 H CK-MB (CK-2) 1.99 CK-MB (CK-2) Rel Index 1.1 L Troponin I 0.015 C-Reactive Protein NT-Pro-B Natriuret Pep Total Protein Albumin Globulin Albumin/Globulin Ratio Procalcitonin Urine Color Urine Appearance Urine pH Ur Specific [place] Urine Protein Urine Glucose (UA) Urine Ketones Urine Occult Blood Urine Nitrate Urine Bilirubin Urine Urobilinogen Ur Leukocyte Esterase Urine RBC Urine WBC Urine Bacteria Hyaline Casts Granular Casts Urine Mucus Ur Culture Indicated? Fluid Color [place] Fluid Appearance Hazy Fluid RBC 42073 Fld Tot Nucleated Cell 60459 Fluid Polynuclear WBCs 92 Fluid Mononuclear WBCs 8 Fluid Eosinophils 0 Fluid Other Cells 0 Fluid Crystals None present Body Fluid Clot No clots present SARS-CoV-2 (PCR) 06/02/21 06/02/21 06/02/21 20:20 20:20 20:20 WBC RBC Hgb Hct MCV MCH MCHC RDW Plt Count Neut % (Auto) Lymph % (Auto) [place]anan % (Auto) Eos % (Auto) Baso % (Auto) Neut # (Auto) Lymph # (Auto) [place] # (Auto) Eos # (Auto) Baso # (Auto) ESR D-Dimer Sodium 132 L Potassium 3.9 Chloride 102 Carbon Dioxide 18 L BUN 16 Creatinine 1.27 H Estimated GFR 54.8 L BUN/Creatinine Ratio 12.6 Glucose 157 H Lactate Uric Acid Calcium 8.7 Magnesium 1.9 Total Bilirubin 0.6 AST 48 ALT 47 Alkaline Phosphatase 62 Total Creatine Kinase CK-MB (CK-2) CK-MB (CK-2) Rel Index Troponin I C-Reactive Protein NT-Pro-B Natriuret Pep 438 Total Protein 7.0 Albumin 3.9 Globulin 3.1 Albumin/Globulin Ratio 1.3 Procalcitonin 0.17 Urine Color Urine Appearance Urine pH Ur Specific [place] Urine Protein Urine Glucose (UA) Urine Ketones Urine Occult Blood Urine Nitrate Urine Bilirubin Urine Urobilinogen Ur Leukocyte Esterase Urine RBC Urine WBC Urine Bacteria Hyaline Casts Granular Casts Urine Mucus Ur Culture Indicated? Fluid Color Fluid Appearance Fluid RBC Fld Tot Nucleated Cell Fluid Polynuclear WBCs Fluid Mononuclear WBCs Fluid Eosinophils Fluid Other Cells Fluid Crystals Body Fluid Clot SARS-CoV-2 (PCR) 06/02/21 06/02/21 06/02/21 20:40 22:20 22:24 WBC 12.2 H RBC 4.06 L Hgb 11.5 L Hct 34.4 L MCV 84.6 MCH 28.4 MCHC 33.6 RDW 14.0 Plt Count 218 Neut % (Auto) 83.9 H Lymph % (Auto) 9.6 L Buchanan % (Auto) 6.2 Eos % (Auto) 0.1 L Baso % (Auto) 0.2 Neut # (Auto) 37237 H Lymph # (Auto) 1200 [place]anan # (Auto) 800 Eos # (Auto) 0 Baso # (Auto) 0 ESR D-Dimer Sodium Potassium Chloride Carbon Dioxide BUN Creatinine Estimated GFR BUN/Creatinine Ratio Glucose Lactate Uric Acid Calcium Magnesium Total Bilirubin AST ALT Alkaline Phosphatase Total Creatine Kinase CK-MB (CK-2) CK-MB (CK-2) Rel Index Troponin I C-Reactive Protein NT-Pro-B Natriuret Pep Total Protein Albumin Globulin Albumin/Globulin Ratio Procalcitonin Urine Color Yellow Urine Appearance Clear Urine pH 5.0 Ur Specific [place] 1.025 Urine Protein 1+ H Urine Glucose (UA) Negative Urine Ketones Negative Urine Occult Blood 2+ H Urine Nitrate Negative Urine Bilirubin Negative Urine Urobilinogen 0.2 Ur Leukocyte Esterase Negative Urine RBC 0-1/hpf Urine WBC 0-1/hpf Urine Bacteria None seen Hyaline Casts 1-5/lpf Granular Casts 1-5/lpf Urine Mucus 1+ H Ur Culture Indicated? Cult not indicated Fluid Color Fluid Appearance Fluid RBC Fld Tot Nucleated Cell Fluid Polynuclear WBCs Fluid Mononuclear WBCs Fluid Eosinophils Fluid Other Cells Fluid Crystals Body Fluid Clot SARS-CoV-2 (PCR) Negative 06/02/21 06/02/21 06/03/21 22:51 22:51 04:30 WBC 10.9 RBC 4.23 L Hgb 12.1 L Hct 35.8 L MCV 84.6 MCH 28.5 MCHC 33.7 RDW 14.2 Plt Count 206 Neut % (Auto) 80.2 H Lymph % (Auto) 9.4 L [place]anan % (Auto) 9.8 Eos % (Auto) 0.0 L Baso % (Auto) 0.6 Neut # (Auto) 8800 H Lymph # (Auto) 1000 L [place] # (Auto) 1100 H Eos # (Auto) 0 Baso # (Auto) 100 ESR D-Dimer 749 H Sodium Potassium Chloride Carbon Dioxide BUN Creatinine Estimated GFR BUN/Creatinine Ratio Glucose Lactate 1.2 Uric Acid Calcium Magnesium Total Bilirubin AST ALT Alkaline Phosphatase Total Creatine Kinase CK-MB (CK-2) CK-MB (CK-2) Rel Index Troponin I C-Reactive Protein NT-Pro-B Natriuret Pep Total Protein Albumin Globulin Albumin/Globulin Ratio Procalcitonin Urine Color Urine Appearance Urine pH Ur Specific [place] Urine Protein Urine Glucose (UA) Urine Ketones Urine Occult Blood Urine Nitrate Urine Bilirubin Urine Urobilinogen Ur Leukocyte Esterase Urine RBC Urine WBC Urine Bacteria Hyaline Casts Granular Casts Urine Mucus Ur Culture Indicated? Fluid Color Fluid Appearance Fluid RBC Fld Tot Nucleated Cell Fluid Polynuclear WBCs Fluid Mononuclear WBCs Fluid Eosinophils Fluid Other Cells Fluid Crystals Body Fluid Clot SARS-CoV-2 (PCR) 06/03/21 04:30 WBC RBC Hgb Hct MCV MCH MCHC RDW Plt Count Neut % (Auto) Lymph % (Auto) [place] % (Auto) Eos % (Auto) Baso % (Auto) Neut # (Auto) Lymph # (Auto) [place] # (Auto) Eos # (Auto) Baso # (Auto) ESR D-Dimer Sodium 133 L Potassium 4.0 Chloride 102 Carbon Dioxide 27 BUN 17 Creatinine 1.19 Estimated GFR 59.1 L BUN/Creatinine Ratio 14.3 Glucose 129 H Lactate Uric Acid Calcium 8.4 Magnesium Total Bilirubin 0.7 AST 32 ALT 41 Alkaline Phosphatase 53 Total Creatine Kinase CK-MB (CK-2) CK-MB (CK-2) Rel Index Troponin I C-Reactive Protein NT-Pro-B Natriuret Pep Total Protein 6.5 Albumin 3.6 Globulin 2.9 Albumin/Globulin Ratio 1.2 Procalcitonin Urine Color Urine Appearance Urine pH Ur Specific [place] Urine Protein Urine Glucose (UA) Urine Ketones Urine Occult Blood Urine Nitrate Urine Bilirubin Urine Urobilinogen Ur Leukocyte Esterase Urine RBC Urine WBC Urine Bacteria Hyaline Casts Granular Casts Urine Mucus Ur Culture Indicated? Fluid Color Fluid Appearance Fluid RBC Fld Tot Nucleated Cell Fluid Polynuclear WBCs Fluid Mononuclear WBCs Fluid Eosinophils Fluid Other Cells Fluid Crystals Body Fluid Clot SARS-CoV-2 (PCR) PFSH Medical History BPH (benign prostatic hyperplasia) Chronic insomnia Coronary artery disease Hyperlipidemia Hypertension Lumbar degenerative disc disease Moderate aortic stenosis by prior echocardiogram Restless leg syndrome Urinary incontinence Surgical History Hx of appendectomy (~2018) S/P TURP (~2017) Social History household members: spouse Smoking Status: Never smoker alcohol intake: current Assessment & Plan Assessment & Plan narrative: Onesimo Oakley is a 80 year old male with a history of BPH with urinary retention, CAD, with aortic stenosis, hyperlipidemia, hypertension, and obesity who presented to the ED with acute right knee pain and swelling x 1 day.?Developed fever overnight without another possible source, being managed as presumed septic arthritis. 1. Presumed septic arthritis of the R knee. - WBC count 11K on R knee aspiration. He had high fevers overnight without other overt source of infection. CXR is unremarkable as is UA. - appreciate Dr. Kang, orthopedic surgery consultation. Plan for arthroscopic washout today. - uric acid at 3.4, no history of gout. ESR 61. CRP 5.0. - blood cultures pending. - appears to have had a history of E. coli / klebsiella bacteremia in 2019. unclear at this time if contributory. 2. Mild hyponatremia, acute, with mild OPAL, acute, present on admission -sodium 132, creatinine 1.27, glucose 157, GFR 54.8.? 06/02/2021 creatinine 1.13, GFR>60. -NS at 100 cc/HR 3. Essential hypertension, acute on chronic, present on admission -patient's initial blood pressure is 174/81, 172/81 -continue patient's metoprolol 4. Hyperlipidemia, chronic, present on admission -continue rosuvastatin 5. BPH with lower urinary tract symptoms, and urinary retention, acute on chronic, present on admission -continue trospium 6. Overweight as evidence by BMI of 31.4, acute on chronic, present on admission -Dietary consult placed Code status:Full Surrogate decision maker: Nehalkassy MONZON PCR:Negative DVT/VTE prophylaxis:?on hold prior to OR Disposition:?inpatient. will probably need PT after washout. I have utilized all available immediate resources to obtain, update, or review the patient's current medications. I confirmed that the patient's advanced care plan is present, Code status is documented and/or surrogate decision maker is listed in the patient's medical record. Time Spent With Patient Critical Care time: I spent a total of [] minutes of critical care time on this patient's care today; this time is exclusive of procedural time. Quality VTE Deep Vein Thrombosis/Pulmonary Embolism Present on Admission: No MIPS - Admit I confirm the patient?s Advance Care Plan is present, Code status is documented, Surrogate decision maker is in patient?s record [If Yes, STOP here]: Yes
[2021-06-03 15:51] LABS: Enterococcus species Not Detected (Not Detect); Listeria monocytogenes Not Detected (Not Detect); Staphylococcus species Not Detected (Not Detect)
[2021-06-03 15:52] LABS: Acinetobacter baumannii Not Detected (Not Detect); Enterobacteriaceae species Not Detected (Not Detect); Streptococcus agalactiae (Gr B Not Detected (Not Detect); Streptococcus pneumonia Not Detected (Not Detect); Streptococcus pyogenes (Gr A) Not Detected (Not Detect); Streptococcus species Detected (Not Detect)
[2021-06-03 15:53] LABS: Candida albicans Not Detected (Not Detect); Candida glabrata Not Detected (Not Detect); Candida krusei Not Detected (Not Detect); Candida parapsilosis Not Detected (Not Detect); Candida tropicalis Not Detected (Not Detect); E. coli Not Detected (Not Detect); Enterobacter cloacae complex Not Detected (Not Detect); Haemophilus influenzae Not Detected (Not Detect); Neisseria meningitidis Not Detected (Not Detect); Proteus species Not Detected (Not Detect); Pseudomonas aeruginosa Not Detected (Not Detect); Serratia marcescens Not Detected (Not Detect)
--- NOTE | 2021-06-03 16:04 | PC.NURSE ---
This nurse received phone call from lab that blood cultures from last night were positive for Gram positive strep. Dr. Hayden informed, will adjust antibiotics accordingly. No other changes to plan of care at this time. Will continue to monitor.
[2021-06-03] MEDS: LACTATED RINGERS 1,000 ML 42 ML IV (17:23)
--- NOTE | 2021-06-03 19:13 | SUR.OPER ---
Beach chair on padded OR bed. Head on gel donut secured with tape over gauze. Non-operative arm secured <90 degrees abduction on padded arm board. Pillow under knees. Safety belt at thigh. Cloth tape over blanket over lower legs.
[2021-06-03] MEDS: BUPIVACAINE 0.5% (PF) VIAL 30 ML INJ (19:18)
[2021-06-03] MEDS: MORPHINE 4 MG/ML INJ IV (19:19)
[2021-06-03] MEDS: ACETAMINOPHEN 325 MG TABLET 650 MG PO (19:49)
[2021-06-03] MEDS: OXYCODONE/ACETAMINOPHEN 5/325 TABLET 1 TAB PO ×2 (19:49→20:26)
--- NOTE | 2021-06-03 19:49 | PM.OP.1 ---
Operative Date/Time/Diagnoses Date of procedure: 06/03/21 Time of procedure: 19:50 Pre-op diagnosis: Right knee septic arthritis Post-op diagnosis: same Procedure & Clinicians Procedure: Right knee arthroscopic irrigation and debridement for septic arthritis Same procedure as scheduled: Yes Indications: The patient is a 80-year-old gentleman who has had progressively worsening symptoms of infection and right knee pain. An aspiration has shown increased white cells and no crystals. His white blood count in his knee fluid has not been diagnostically high but he has had extreme knee pain and fevers and chills. He has agreed to arthroscopic irrigation and debridement after discussion of the risks benefits and alternatives as documented in my consultation note. Surgeon: Enrique Kang Click Yes if Unassisted: Yes Anesthesia Type: General Operative Notes Findings: Approximately 35 mm of purulent fluid was returned upon entering the knee. There was synovial inflammation and a complete transverse plica in the suprapatellar pouch. Mild degenerative change in the patellofemoral joint. Residual purulence fluid in the medial and lateral gutters. Medial compartment notable for minimal degenerative change of the medial meniscus. Intercondylar notch notable for intact ACL and visualized portion of the PCL. There was inflamed synovium which was debrided. Lateral compartment notable for grade 4 cartilage lesion on the tibial plateau measuring approximately 1 cm in diameter. Degenerative fraying of the meniscus. Posterolateral compartment normal. Posteromedial compartment normal. Closure Type: primary Specimen(s): other (Fluid was sent for culture and crystals.) Prosthetic devices, grafts, tissues, transplants, or devices: Two drains were placed. Applied: drain(s) Estimated Blood Loss (mL): 15 Blood products transfused: none Tourniquet time (min): 27 Procedure in detail: The patient was seen in the preoperative area where he confirmed the right knee as the operative site this was marked with my initials. He was taken to the operating room and placed on the operating room table in the supine position after undergoing the induction of a general anesthetic on his hospital bed. A tourniquet was placed about the proximal right thigh. A time study technician-out was performed prior to prepping and draping. The right leg was prepared from the toes to the tourniquet with ChloraPrep in the usual fashion and draped through sterile drapes. The leg was held elevated while the arthroscopic equipment was set up. The tourniquet was then inflated to 250 mmHg. Should be noted that the patient had received antibiotics on ongoing basis during this hospitalization and specific preoperative antibiotics were not administered. A superior medial portal was created for the pump cannula. The knee was inflated with arthroscopic fluid after allowing the purulence fluid in the knee to be expressed. A lateral portal was created and the arthroscope inserted. Diagnostic arthroscopy was performed in the usual order with the result given above. A medial portal was created during diagnostic arthroscopy for the probe and other tools. A 2nd run of diagnostic arthroscopy was performed to help spread the fluid around the joint. A total of 6 L of sterile saline solution was irrigated through the knee and the arthroscope was moved through all compartments of the knee on multiple occasions to spread the fluid around. The shaver was inserted and used to debride the inflamed tissue in the intercondylar notch and the suprapatellar pouch. It was also used to remove a complete suprapatellar transverse plica. A drain was threaded down the pump cannula in the superomedial portal. A superolateral portal was created in the pump cannula inserted and a 2nd drain placed. These portals were closed with nylon and the drains sutured into position. The medial and lateral portals were also closed with nylon after removing all arthroscopic equipment. Dressings of gauze, sterile cast padding and an Umesh wrap were applied. The drain was connected under sterile conditions in the operating room. The patient was then allowed to awaken from anesthesia and taken to the recovery room in good condition having tolerated procedure well. Complications: none Post-operative Condition: stable Disposition: PACU Plan for aftercare: The patient will be maintained with the current drains in place for 2 days. He will continue to receive intravenous antibiotics. He likely will receive between 2-6 weeks of home IV antibiotics depending on the input of Infectious Disease consultation.
[2021-06-03] MEDS: ONDANSETRON 4 MG/2 ML INJ IV (19:50)
[2021-06-03] MEDS: HYDROMORPHONE 2 MG INJ IV ×3 (19:54→20:18)
[2021-06-03 20:08] LABS: Crystals Body Fluid - IN-HOUSE NONE Present
[2021-06-03] MEDS: fentaNYL 100 MCG/2 ML INJ IV (20:08)
--- NOTE | 2021-06-03 20:13 | SUR.PHASEI ---
Oxygen saturation down to 87% on room air after administration of pain medication; placed on oxygen at 2 liters. Oxygen saturation up to 95% on 2 liters. No distress noted.
[2021-06-03] MEDS: SENNOSIDES 8.6 MG TABLET 17.2 MG PO (22:09)
[2021-06-03] MEDS: ASPIRIN EC 81 MG TABLET PO (22:09)
[2021-06-03] MEDS: IBUPROFEN 600 MG TABLET PO (23:07)
[2021-06-03] MEDS: MORPHINE 2 MG/ML INJ IV (23:07)
[2021-06-04] VITALS (14 sets, daily range): BP systolic 106–141; BP diastolic 56–70; PULSE 60–102; RESP 16–19; TEMP 35.5–38.4; O2SAT 93–99
[2021-06-04] MEDS: OXYCODONE IR 10 MG TABLET PO ×4 (02:34→18:03)
[2021-06-04] MEDS: cefTRIAXone 2,000 MG in SODIUM CHLORIDE 0.9% 100 ML 200 ML IV (05:37)
[2021-06-04 05:42] LABS: Hematocrit 32.1 % (41-53); Hemoglobin 10.6 g/dL (13.5-17.5); Mean Corpuscular Hemoglobin 28.3 PG (26-34); Mean Corpuscular Volume 85.8 fL (80-100); Platelet Count 189 X10^3/uL (150-400); Red Blood Cell Count 3.74 X10^6/uL (4.5-5.9); Red Cell Distribution Width 14.3 % (11.6-14.8); White Blood Cell Count 7.6 X10^3/uL (4.5-11.0)
--- NOTE | 2021-06-04 07:44 | PM.PN.1 ---
Subjective Subjective Date Patient Seen: 06/04/21 Interval history: He is seen today follow-up the septic joint-right knee and the bacteremia of Gram-positive cocci. He now has a drain in the right knee after a washout procedure by Dr. aKng yesterday. 35 mm (ml?) of purulent fluid was removed. An echocardiogram is pending. The white blood count is 7.6 with a hemoglobin of 10.6. Orthopedics is hopeful that his strep joint infection will be able to be treated with oral antibiotics at home. He does have a heart murmur so it will be essential to document no obvious vegetation on echocardiogram before discharge. Exam Vital Signs (past 8 hours): - 06/04/21 02:30 06/04/21 04:06 06/04/21 06:00 Temperature 96 F L Pulse Rate 60 Respiratory Rate 19 Blood Pressure 106/56 L Pulse Oximetry 97 96 94 Oxygen Delivery Method Nasal Cannula Oxygen Flow Rate 2 Narrative Exam Narrative: He is somewhat negative today. He is fully oriented and in no apparent distress. Heart is regular rate and rhythm with a 2/6 systolic ejection murmur Lungs are clear to auscultation bilaterally Extremities have no ankle edema. The right knee has a dressing in place with a drain line coming out. There are no signs of residual swelling or cellulitis. Objective Labs Result Diagrams: 06/04/21 05:18 06/03/21 04:30 Labs: Laboratory Results - last 24 hr 06/02/21 06/03/21 06/04/21 22:59 20:01 05:18 WBC 7.6 RBC 3.74 L Hgb 10.6 L Hct 32.1 L MCV 85.8 MCH 28.3 MCHC 33.0 RDW 14.3 Plt Count 189 Fluid Crystals None present A. baumannii (PCR) Not detected Priyanka albicans (PCR) Not detected C. glabrata (PCR) Not detected C. krusei (PCR) Not detected C. parapsilosis (PCR) Not detected C. tropicalis (PCR) Not detected Enterobacteriac sp PCR Not detected E. cloacae complex PCR Not detected Enterococcus sp PCR Not detected E. coli (PCR) Not detected H. influenzae (PCR) Not detected Klebsiella oxytoca PCR Not detected Klebsiella pneumoniae Not detected List. monocytogenes PCR Not detected N. meningitidis (PCR) Not detected Proteus species (PCR) Not detected Serratia marcescens PCR Not detected Staphylococcus sp PCR Not detected Staph aureus (PCR) Not detected mecA-Methicil Res Gene Not Reportable Streptococcus sp PCR Detected H Group A Strep (PCR) Not detected Strep agalactiae (PCR) Not detected Strep pneumoniae (PCR) Not detected P. aeruginosa (PCR) Not detected Chencho/B-Vanco Res Genes Not Reportable KPC-Carbap Res Gene PCR Not Reportable PFSH Medical History BPH (benign prostatic hyperplasia) Chronic insomnia Coronary artery disease Hyperlipidemia Hypertension Lumbar degenerative disc disease Moderate aortic stenosis by prior echocardiogram Restless leg syndrome Urinary incontinence Surgical History Hx of appendectomy (~2018) S/P TURP (~2017) Social History household members: spouse Smoking Status: Former smoker alcohol intake: current Assessment & Plan Assessment & Plan narrative: Onesimo Oakley is a 80 year old male with a history of BPH with urinary retention, CAD, with aortic stenosis, hyperlipidemia, hypertension, and obesity who presented to the ED with acute right knee pain and swelling x 1 day.? He developed fever overnight without another possible source, so is being managed as presumed septic arthritis. 1. Streptococcus septic arthritis of the R knee. ?- WBC count 11K on R knee aspiration. He had high fevers overnight without other overt source of infection. CXR was unremarkable as is UA. ?- appreciate Dr. Kang, arthroscopic washout on 06/03 ?- uric acid at 3.4, no history of gout. ESR 61. CRP 5.0. ?- blood cultures pending growing Gram-positive cocci ?- appears to have had a history of E. coli / klebsiella bacteremia in 2019. unclear at this time if contributory. 2. Mild hyponatremia, acute, with mild OPAL, acute, present on admission -sodium 132, creatinine 1.27, glucose 157, GFR 54.8.? 06/02/2021 creatinine 1.13, GFR>60. -NS at 100 cc/HR 3. Essential hypertension, acute on chronic, present on admission -patient's initial blood pressure is 174/81, 172/81 and is now normal -continue patient's metoprolol 4. Hyperlipidemia, chronic, present on admission -continue rosuvastatin 5. BPH with lower urinary tract symptoms, and urinary retention, acute on chronic, present on admission -continue trospium 6. Overweight as evidence by BMI of 31.4, acute on chronic, present on admission -Dietary consult placed 7. Moderate aortic stenosis, present on echo in 2020. -repeat echocardiogram and rule out obvious vegetations as source of the occult knee sepsis. Code status:Full Surrogate decision maker: Nehal Oakley DVT/VTE prophylaxis:?on hold due to recent surgery Disposition:?inpatient. Pending PT eval. Time Spent With Patient Critical Care time: I spent a total of [] minutes of critical care time on this patient's care today; this time is exclusive of procedural time. Quality VTE Deep Vein Thrombosis/Pulmonary Embolism Present on Admission: No
--- NOTE | 2021-06-04 08:49 | PM.PNPO.1 ---
Subjective Subjective Date Patient Seen: 06/04/21 Time Patient Seen: 08:30 Interval history: The patient reports his knee is comfortable. Exam Vital Signs (past 8 hours): - 06/04/21 02:30 06/04/21 04:06 06/04/21 06:00 Temperature 96 F L Pulse Rate 60 Respiratory Rate 19 Blood Pressure 106/56 L Pulse Oximetry 97 96 94 06/04/21 07:30 Temperature 96.7 F L Pulse Rate 64 Respiratory Rate Blood Pressure 121/61 Pulse Oximetry 98 Oxygen Delivery Method Nasal Cannula Oxygen Flow Rate 0 Narrative Exam Narrative: The right knee is dressed. The drain is in place. No drainage on the bandage. Calf is soft. Light touch and motion are intact in the right lower extremity. Objective Labs Result Diagrams: 06/04/21 05:18 06/03/21 04:30 Labs: Laboratory Results - last 24 hr 06/02/21 06/03/21 06/04/21 22:59 20:01 05:18 WBC 7.6 RBC 3.74 L Hgb 10.6 L Hct 32.1 L MCV 85.8 MCH 28.3 MCHC 33.0 RDW 14.3 Plt Count 189 Fluid Crystals None present A. baumannii (PCR) Not detected Priyanka albicans (PCR) Not detected C. glabrata (PCR) Not detected C. krusei (PCR) Not detected C. parapsilosis (PCR) Not detected C. tropicalis (PCR) Not detected Enterobacteriac sp PCR Not detected E. cloacae complex PCR Not detected Enterococcus sp PCR Not detected E. coli (PCR) Not detected H. influenzae (PCR) Not detected Klebsiella oxytoca PCR Not detected Klebsiella pneumoniae Not detected List. monocytogenes PCR Not detected N. meningitidis (PCR) Not detected Proteus species (PCR) Not detected Serratia marcescens PCR Not detected Staphylococcus sp PCR Not detected Staph aureus (PCR) Not detected mecA-Methicil Res Gene Not Reportable Streptococcus sp PCR Detected H Group A Strep (PCR) Not detected Strep agalactiae (PCR) Not detected Strep pneumoniae (PCR) Not detected P. aeruginosa (PCR) Not detected Chencho/B-Vanco Res Genes Not Reportable KPC-Carbap Res Gene PCR Not Reportable PFSH Medical History BPH (benign prostatic hyperplasia) Chronic insomnia Coronary artery disease Hyperlipidemia Hypertension Lumbar degenerative disc disease Moderate aortic stenosis by prior echocardiogram Restless leg syndrome Urinary incontinence Surgical History Hx of appendectomy (~2018) S/P TURP (~2017) Social History household members: spouse Smoking Status: Former smoker alcohol intake: current Assessment & Plan Post-op Postoperative Procedures: Procedures Operation Date: 06/03/21 17:15 Actual Procedure Side Surgeon p Arthroscopic Knee Washout Right Enrique Kang MD Postoperative day: 1 Postoperative status: doing well and anemia Postoperative status narrative: The patient is postoperative day 1 status post arthroscopic incision and drainage of an infected right knee. He has a mild anemia. Blood loss from surgery does not account for this. His culture results from his aspiration in the emergency room are now growing Streptococcus. Culture results from surgery last night are pending. Drain output has been 30 mL. Postoperative plan: routine post-op care and ambulate Postoperative plan narrative: I will leave the drains in until tomorrow. We are awaiting sensitivity results to refine antibiotic coverage. I would suggest obtaining Infectious Disease input as to whether or not he needs IV antibiotics and for how long. Would continue current care until then. Quality VTE Deep Vein Thrombosis/Pulmonary Embolism Present on Admission: No
[2021-06-04] MEDS: CLOPIDOGREL 75 MG TABLET PO (09:06)
[2021-06-04] MEDS: ASPIRIN EC 81 MG TABLET PO ×2 (09:06→20:13)
--- NOTE | 2021-06-04 10:51 | PT.IIE ---
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) Surgery Performed Operation Date: 06/03/21 17:15 Actual Procedures p Arthroscopic Knee Washout(Right) - Enrique Kang MD Medical History (Last Reviewed 06/03/21 @ 12:51 by Enrique Kang MD) BPH (benign prostatic hyperplasia) Chronic insomnia Coronary artery disease Hyperlipidemia Hypertension Lumbar degenerative disc disease Moderate aortic stenosis by prior echocardiogram Restless leg syndrome Urinary incontinence Physical Therapy Inpatient Evaluation/Re-Eval M1 PT/OT-IP Prior Functional Status Start: 06/04/21 12:36 Freq: NEEDED Status: Active Protocol: Document 06/04/21 10:51 AB (Rec: 06/04/21 12:53 AB [email or web address]) Medical Review Prior Functional Status Medical History Reviewed Yes Communication able to make needs known; [place] Mobility and Gait pt stated that he is independent with all mobilities and ambulation without AD Social History Household Members spouse Living Arrangements House Number of Floors (Floors) Two Floors Number of Stairs To Enter/Railing? 5 steps with wide rails from the front 4 steps R rail ascending from the back 14 steps with L rail ascending to get to bedroom level Home Environment High Toilet,Walk in Shower Home Equipment Front Wheel Walker,Grab Bars Near Toilet,Grab Bars In Shower Additional Social History Comment pt stated that he thinks his spouse will be able to assist him but also stated that spouse has multiple back issues; nurse informed PT that spouse called and stated that she will not be able to lift/ give pt much assistance if pt needs physical assist for mobiltiy M2 PT-IP Current Condition Start: 06/04/21 12:36 Freq: NEEDED Status: Active Protocol: Document 06/04/21 10:51 AB (Rec: 06/04/21 12:53 AB [email or web address]) Physical Therapy Current Condition Current Condition Evaluation Date 06/04/21 Treatment Diagnosis R knee sepsis s/p I&D; difficulty in walking Onset Date 06/02/21 M3 PT-IP Subjective Start: 06/04/21 12:36 Freq: NEEDED Status: Active Protocol: Document 06/04/21 10:51 AB (Rec: 06/04/21 12:53 AB [email or web address]) Subjective Physical Therapy Visit Type Type Initial Evaluation Visit Start Time 10:51 Visit Stop Time 11:35 Total Visit Minutes 44 Number of FUR CLIPPER Visits 0 Physical Therapy Visit Comments Patient Comments agreeable to do PT Therapy Pain Assessment Pain When Pain Assessed During Mobility Pain Present Pain Present Pain Reported Location right knee Intensity 6 Scale Used Numeric (0 - 10) Pain Management Techniques Distraction,Elevation, Modification of Treatment,Re- positioning,Timing of Activity with Medications M4 PT-IP Mobility and Gait Start: 06/04/21 12:36 Freq: NEEDED Status: Active Protocol: Document 06/04/21 10:51 AB (Rec: 06/04/21 12:53 AB [id number]) PT-Bed Mobility Assessment Supine to Sit Supine to Sit Standby Assistance PT-Transfer Assessment Sit to and From Stand Sit to and from Stand Moderate Assistance,1 Person Assistance,Use of Upper Extremities Equipment Transfer Assistive Device Gait Belt,Front Wheeled Walker Orthotic/Prosthetic Devices or Brace: No Transfers Transfer Destination Chair Transfer Technique Stand Step Pivot Transfer Ability Level of Assist Moderate Assistance,1 Person Assistance,Use of Upper Extremities Comments Mobility Comments pt completed supine to sit SBA and cues for techniques. able to sit on EOB SBA. c/o increase R knee pain. completed sit to stand mod A and cues. presents with increase R knee flexion with inability to put too much weight. educated pt on safety and encourage to put more weight and instructed on quads activation. pt completed step transfer using fWW mod A and cues. educated pt on safety and stability of RLE and agreed to stand again. completed sit to stand mod A and cues and ambulated in room and completed 25 ft using FWW initially mod A but min A towards end of ambulation. requires verbal and tactile cues for R quads activation. pt with slight buckling towards end of stance phase. pt agreed to sit on chair. positioned on chair. call light and table placed within reach. pt requested to be seen at ~ 1 -130 pm this afternoon for 2nd PT session and wants to do stair climbing. informed pt that will assess if pt is safe to do stairs but due to R knee with tendency to buckle this morning, was not appropriate to do this morning but will assess again this afternoon. pt agreed. Gait Assessment Gait Gait Assistance Required: Minimum Assistance,Moderate Assistance,1 Person Assist Distance (Feet) 25 Able to Maintain Weight Bearing Status Yes During Gait Assistive Devices Assistive Device Gait Belt,Front Wheeled Walker Orthotic/Prosthetic Devices or Brace: No Gait Deviations General Gait Pattern Antalgic,Decreased Stride Length,Decreased Feet Clearance,Step-to Gait,Wide Based Gait Factors Limiting Gait Function Factors Limiting Gait Function Decreased Activity Tolerance, Decreased Strength,Limited Range of Motion,Pain,Poor Balance,Poor Safety Awareness, Respiratory Distress PT-Balance Assessment Sitting Balance and Reactions Static Sitting Balance Ability Good Dynamic Sitting Balance Ability Good Standing Balance and Reactions Static Standing Balance Ability Fair Dynamic Standing Balance Ability Fair Device Used FWW M5 PT-IP Objective Assessments Start: 06/04/21 12:36 Freq: NEEDED Status: Active Protocol: Document 06/04/21 10:51 AB (Rec: 06/04/21 12:53 AB [email or web address]) Orientation Orientation/Cognition Level of Alertness Alert Orientation Name Language Function Ability Hard of Hearing Safety Awareness Decreased Safety Awareness Memory Description Short Term Impaired Gross Range of Motion Lower Extremity ROM Assessment Right Impaired Impairments R knee flexion: ~ 45 deg with increase guarding and c/o pain with PROM R knee extension: ~ 15 deg less to 0 Strength Lower Extremity Strength Assessment Right Impaired Hip 3+/5 Knee 3+/5 Sensation Assessment Sensation Gross Sensation WNL Muscle Tone Muscle Tone WNL Yes M6 PT-IP Treatment Start: 06/04/21 12:36 Freq: NEEDED Status: Active Protocol: Document 06/04/21 10:51 AB (Rec: 06/04/21 12:53 AB [email or web address]) Physical Therapy Treatment Education Education Provided Safety M7 PT-IP Assessment and Plan Start: 06/04/21 12:36 Freq: NEEDED Status: Active Protocol: Document 06/04/21 10:51 AB (Rec: 06/04/21 12:53 AB [email or web address]) PT Summary Assessment and Plan Potential Rehabilitation Potential Good Status of Condition at Evaluation Evolving Summary Impairments Pain,ROM,Strength,Balance, Coordination,Sensation,Tone, Cognition,Bed Mobility, Transfers,Gait,Activity Tolerance Assessment Summary pt requiring min to mod A with mobility at this time using FWW. pt has his spouse to assist him at home but per spouse, she will not be able to provide much physical assitance to pt. pt also has a lot of stairs at home and needs to be able to do stairs safely prior to d/c home. Will conduct caregiver training and stair climbing when appropriate but at this time, pt may require SNF rehab to improve strength and mobility independence. Goals Bed Mobility Goal Independent Transfer Goal Independent,Front Wheeled Walker Gait Goal Independent,Front Wheel Walker Gait Distance 200 Other Goals up/down 14 steps L rail SBA Frequency of Treatment Frequency Of Treatment Twice a Day Treatment Plan Physical Therapy Treatment Plan Bed Mobility Training,Transfer Training,Gait Training, Therapeutic Exercise,Balance Retraining,Post Op Education, Discharge Planning,Hot or Cold Pack,Neuromuscular Re-ed, Coordination Retraining,Manual Therapy Weight Bearing Status Weight Bearing Status Weight Bear as Tolerated Allowed Weight Bearing Amount (enter % RLE WBAT or #) (%) Recommendations To Nursing Amount of Assist Needed 1 Person Assist Discharge Recommendations PT Discharge Recommendations Home with Assistance,Home Health,SNF Rehab,Home vs SNF Transportation Needs at Discharge Private Vehicle,Wheelchair/ Cabulance
--- NOTE | 2021-06-04 12:17 | OT.IP.EVAL ---
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) Surgery Performed Operation Date: 06/03/21 17:15 Actual Procedures p Arthroscopic Knee Washout(Right) - Enrique Kang MD Past Medical History (Last Reviewed 06/03/21 @ 12:51 by Enrique Kang MD) BPH (benign prostatic hyperplasia) Chronic insomnia Coronary artery disease Hx of appendectomy (~2017) Hyperlipidemia Hypertension Lumbar degenerative disc disease Moderate aortic stenosis by prior echocardiogram Restless leg syndrome S/P TURP (~2016) Urinary incontinence Surgical History (Last Reviewed 06/03/21 @ 12:51 by Enrique Kang MD) Hx of appendectomy (~2018) S/P TURP (~2017) Occupational Therapy Inpatient Evaluation/Re-Eval M2 OT-IP Current Condition Start: 06/04/21 12:26 Freq: Status: Active Protocol: Document 06/04/21 11:45 [facility] (Rec: 06/04/21 12:37 [facility] [id number]) Occupational Therapy Current Condition Current Condition Evaluation Date 06/04/21 Treatment Diagnosis I and D right knee Diagnosis Onset Date 06/02/21 M3 OT- IP Subjective and Pain Start: 06/04/21 12:26 Freq: Status: Active Protocol: Document 06/04/21 11:45 [facility] (Rec: 06/04/21 12:37 [facility] [id number]) OT- Subjective Occupational Therapy Visit Type Type Initial Evaluation Visit Start Time 11:45 Visit Stop Time 12:17 Total Visit Minutes 32 Occupational Therapy Visit Comments Patient Comments Pt agreed to get up and use the bathroom. Patient/Caregiver Goals TO go home. OT Pain Assessment Pain When Pain Assessed At Rest Pain Present Pain Present Pain Reported Location right knee Intensity 5 Scale Used Numeric (0 - 10) M4 OT- IP ADL's Start: 06/04/21 12:26 Freq: Status: Active Protocol: Document 06/04/21 11:45 [facility] (Rec: 06/04/21 12:37 [facility] [id number]) OT [id number] General Evaluation Self-Feeding Ability Independent OT ADL-Grooming General Evaluation Grooming Ability Independent Areas Needing Assistance Retrieving/Set-up of Grooming Items OT ADL-Oral Care General Eval Oral Care Ability Independent OT ADL-Dressing General Eval Lower Body Dressing Ability Standby Assistance,Maximum Assistance Comments OT Dressing Comments Able to issue pt LB dressing equipment and now able to do LB dressing needs for brief and socks. OT ADL-Toileting General Evaluation Toileting Ability Standby Assistance Comments OT Toileting Comments Educated to roll the FWW over the toilet for increased ease to use the toilet. OT ADL-Bathing Comments OT Bathing Comments Pt insists that he will just shower at home. Suggested use of shower chair at home, pt feel that he will not need it. M5 OT- IP IADL's Start: 06/04/21 12:26 Freq: Status: Active Protocol: Document 06/04/21 11:45 [facility] (Rec: 06/04/21 12:37 [facility] [id number]) OT-Instrumental Activities of Daily Living Home Safety Awareness Awareness of Need for Assistance at Home Good Awareness Ability to Problem Solve Emergency Able to Problem Solve Situations M6 OT- IP Functional Cognition Start: 06/04/21 12:26 Freq: Status: Active Protocol: Document 06/04/21 11:45 [facility] (Rec: 06/04/21 12:37 [facility] [id number]) Cognitive Factors Limiting Selfcare Function Cognitive Ability Level of Alertness Alert Patient Orientation Name,Age,Birthday,Month,Date, Year,Day of Week,Place, Situation Attention Span Ability Capable of Focused Attention, Capable of Sustained Attention Ability to Follow Commands Able to Follow Multi-Step Commands Safety Awareness Underestimates Need for Assistance Cognitive Comments Cognitive Assessment Comments Pt just needing reminders to keep the FWW in front of him. OT- Vision and Hearing OT- Hearing Assessment OT- Hearing Assessment WFL M7 OT- IP Mobility and Balance Start: 06/04/21 12:26 Freq: Status: Active Protocol: Document 06/04/21 11:45 [facility] (Rec: 06/04/21 12:37 [facility] [id number]) OT-Transfer Assessment Sit to and From Stand Sit to and from Stand Standby Assistance Transfers Transfer Ability Standby Assistance Technique Transfer Destination Chair Transfer Technique Stand Step Pivot Devices Transfer Assistive Devices Gait Belt,Front Wheeled Walker Comments Mobility Comments SBA with FWW in the room and standing from the recliner. Pt needing heavy use of his arms on the armrests of the recliner to stand up. OT- Gait Assessment Comments Gait Ability Comments SBA with FWW in the room. OT- Balance Assessment Sitting Balance and Reactions Static Sitting Balance Ability Normal Dynamic Sitting Balance Ability Fair Standing Balance and Reactions Static Standing Balance Ability Good M8 OT- IP Objective Assessments Start: 06/04/21 12:26 Freq: Status: Active Protocol: Document 06/04/21 11:45 [facility] (Rec: 06/04/21 12:37 [facility] [id number]) OT Gross Range of Motion Upper Extremity Range of Motion Assessment Within Functional Limits OT Strength Upper Extremity Strength Assessment Within Functional Limits OT- Coordination Assessment Comments Coordination Comments Increased time to open packages for grooming/oral care needs. OT-Muscle Tone Assessment Muscle Tone WNL Yes M9 OT- IP Assessment and Plan Start: 06/04/21 12:26 Freq: Status: Active Protocol: Document 06/04/21 11:45 [facility] (Rec: 06/04/21 12:37 [facility] [id number]) OT Summary Assessment and Plan Potential Rehabilitation Potential Excellent Analytic Complexity at Evaluation Low Summary OT Impairments Pain,Range of Motion,Balance, Functional Mobility,Dressing, Toileting,Bathing Progress Towards Goals Progressing Toward Goals Assessment Summary Pt low complexity and moving well with SBA and use of FWW. Pt now able to do LB dressing needs after issuing pt LB dressing equipment. Pt states his has a back bad and not able to physically assist him at home. Pending medical issues, pt looking to go home with assist. Goals Dressing Goal Independent Toileting Goal Independent Bathing Goal Independent Toilet Transfer Goal Independent Shower Transfer Goal Independent Days to Meet Goals 3 Frequency of Treatment Frequency Of Treatment Once a Day Treatment Plan OT Treatment Plan ADL Training,Functional Mobility,Patient/Family Education,Discharge Planning Other Treatment Recommendations and Next shower if pt still here Treatment Focus Discharge Recommendations OT Discharge Recommendations Home with Assistance Home Equipment Needs shower chair Transportation Needs at Discharge Private Vehicle
--- NOTE | 2021-06-04 13:36 | PT.IPTN ---
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) Surgery Performed Operation Date: 06/03/21 17:15 Actual Procedures p Arthroscopic Knee Washout(Right) - Enrique Kang MD Physical Therapy Treatment Note M2 PT-IP Current Condition Start: 06/04/21 12:36 Freq: NEEDED Status: Active Protocol: Document 06/04/21 10:51 AB (Rec: 06/04/21 12:53 AB [id number]) Physical Therapy Current Condition Current Condition Evaluation Date 06/04/21 Treatment Diagnosis R knee sepsis s/p I&D; difficulty in walking Onset Date 06/02/21 M3 PT-IP Subjective Start: 06/04/21 12:36 Freq: NEEDED Status: Active Protocol: Document 06/04/21 13:36 KS (Rec: 06/04/21 14:26 KS [id number]) Subjective Physical Therapy Visit Type Type Treatment Note Visit Start Time 13:36 Visit Stop Time 13:54 Total Visit Minutes 18 Number of INTERNET SITE DESIGNER Visits 1 Physical Therapy Visit Comments Patient Comments agreeable to do PT Therapy Pain Assessment Pain When Pain Assessed During Mobility Pain Present Pain Present Pain Reported Location right knee Intensity 9 Pain Behaviors Facial Grimacing,Guarding, Wincing Pain Management Techniques Modification of Treatment,Re- positioning,Timing of Activity with Medications M4 PT-IP Mobility and Gait Start: 06/04/21 12:36 Freq: NEEDED Status: Active Protocol: Document 06/04/21 13:36 KS (Rec: 06/04/21 14:26 KS [id number]) PT-Bed Mobility Assessment Sit to Supine Sit to Supine Minimal Assistance,1 Person Assistance Scooting Scooting to Edge of Bed Contact Guard Assistance PT-Transfer Assessment Sit to and From Stand Sit to and from Stand Minimal Assistance,1 Person Assistance,Use of Upper Extremities Equipment Transfer Assistive Device Gait Belt,Front Wheeled Walker Orthotic/Prosthetic Devices or Brace: No Transfers Transfer Destination Bed,Chair Transfer Technique Pt ambulated w/ FWW Transfer Ability Level of Assist Minimal Assistance,1 Person Assistance,Use of Upper Extremities Comments Mobility Comments Pt in chair upon arrival and agreeable to ambulate but states he feels too fatigued from earlier to perform stairs this PM and would rather wait until tomorrow. Min A for sit <>Stand w/ FWW. Pt then ambulated ~[address] w/ FWW CGA and cues for R quad acitivation. Pt reported 9/10 pain and requested to go back to room. Pt initially sat in chair but then transferred to bed CGA but needing Min A for LE elevation into bed. Pt refused LE exercises due to pain and fatigue. Left in bed w/ all needs in reach and alarm on. Gait Assessment Gait Gait Assistance Required: Contact Guard Assist,1 Person Assist Distance (Feet) 75 Able to Maintain Weight Bearing Status Yes During Gait Assistive Devices Assistive Device Gait Belt,Front Wheeled Walker Orthotic/Prosthetic Devices or Brace: No Gait Deviations General Gait Pattern Antalgic,Decreased Stride Length,Decreased Feet Clearance,Step-to Gait,Wide Based Gait Factors Limiting Gait Function Factors Limiting Gait Function Decreased Activity Tolerance, Decreased Strength,Limited Range of Motion,Pain,Poor Balance,Poor Safety Awareness, Respiratory Distress Comments Gait Comments Please refer to mobility section for details. Stair Climbing Assessment Comments Stair Climbing Comments Pt refused due to pain and fatigue. Requested to try tomorrow AM. PT-Balance Assessment Sitting Balance and Reactions Static Sitting Balance Ability Good Dynamic Sitting Balance Ability Good Standing Balance and Reactions Static Standing Balance Ability Fair Dynamic Standing Balance Ability Fair Device Used FWW M5 PT-IP Objective Assessments Start: 06/04/21 12:36 Freq: NEEDED Status: Active Protocol: Document 06/04/21 10:51 AB (Rec: 06/04/21 12:53 AB [id number]) Orientation Orientation/Cognition Level of Alertness Alert Orientation Name Language Function Ability Hard of Hearing Safety Awareness Decreased Safety Awareness Memory Description Short Term Impaired Gross Range of Motion Lower Extremity ROM Assessment Right Impaired Impairments R knee flexion: ~ 45 deg with increase guarding and c/o pain with PROM R knee extension: ~ 15 deg less to 0 Strength Lower Extremity Strength Assessment Right Impaired Hip 3+/5 Knee 3+/5 Sensation Assessment Sensation Gross Sensation WNL Muscle Tone Muscle Tone WNL Yes M6 PT-IP Treatment Start: 06/04/21 12:36 Freq: NEEDED Status: Active Protocol: Document 06/04/21 13:36 KS (Rec: 06/04/21 14:26 KS [id number]) Physical Therapy Treatment Education Education Provided Safety M7 PT-IP Assessment and Plan Start: 06/04/21 12:36 Freq: NEEDED Status: Active Protocol: Document 06/04/21 13:36 KS (Rec: 06/04/21 14:26 KS [id number]) PT Summary Assessment and Plan Potential Rehabilitation Potential Good Status of Condition at Evaluation Evolving Summary Impairments Pain,ROM,Strength,Balance, Coordination,Sensation,Tone, Cognition,Bed Mobility, Transfers,Gait,Activity Tolerance Assessment Summary Pt limited by 9/10 pain and high reported fatigue due to previous treatment, but able to ambulate 75 ft w/ FWW CGA and requied Min A for transfers. Pt refused stair training and LE exercises this PM and will need to complete prior to d/c if going home. D/ c plan depending on progress, however at this time pt may require SNF to improve strength and functional mobility independence as pt states he typically helps his and she may not be able to provide much assistance. Goals Bed Mobility Goal Independent Transfer Goal Independent,Front Wheeled Walker Gait Goal Independent,Front Wheel Walker Gait Distance 200 Other Goals up/down 14 steps L rail SBA Frequency of Treatment Frequency Of Treatment Twice a Day Treatment Plan Physical Therapy Treatment Plan Bed Mobility Training,Transfer Training,Gait Training, Therapeutic Exercise,Balance Retraining,Post Op Education, Discharge Planning,Hot or Cold Pack,Neuromuscular Re-ed, Coordination Retraining,Manual Therapy Weight Bearing Status Weight Bearing Status Weight Bear as Tolerated Allowed Weight Bearing Amount (enter % RLE WBAT or #) (%) Recommendations To Nursing Amount of Assist Needed 1 Person Assist Discharge Recommendations PT Discharge Recommendations Home with Assistance,Home Health,SNF Rehab,Home vs SNF Transportation Needs at Discharge Private Vehicle,Wheelchair/ Cabulance
--- NOTE | 2021-06-04 13:56 | DI.ECHO.S_ITS ---
[facility] +---------+ [facility] +---------+ : : [address] : [place] : : : : [id number] : : : : Phone: [phone]+ Echocardiogram Report + + :Name: MYNOR GALICIA Study Date: 06/05/2021 Height: 75 in : :[facility] ReadingLocation: Weight: 251 lb : : Gender: Male BSA: 2.4 m2 : :: 1940 Age: 80 yrs BP: 147/79 mmHg: :Reason For Study: OCCULT SEPTIC KNEE JOINT, RULE OUT : :ENDOCARDITIS : :Ordering Physician: CALVIN, : :KADEEM Menchaca Performed By: Dione Martin : :Referring: KADEEM SIMPSON : + + Interpretation Summary The left ventricle is normal in size. The left ventricle is hyperdynamic. The ejection fraction is estimated to be 70-75%. No significant LV outflow tract obstruction. Previous LVEF 60 to 65%. The right ventricle is normal in size and function. The aortic valve is trileaflet. The aortic valve is severely calcified. There is severely reduced leaflet mobility. The peak aortic velocity is 4.78 m/sec.The peak aortic velocity on the previous exam was 3.4 m/sec. The aortic valve mean gradient is 50 mmHg. Calculated aortic valve area about 1.2 slot attendant?. Over estimation due to hyperdynamic LV as well as increased LV outflow tract velocity however morphologically and based of mean gradient and peak aortic velocity, appears to have severe aortic stenosis. The ascending aorta is mildly enlarged. 4.0 cm in diameter. Unchanged from the previous study. The IVC is of normal diameter and collapses greater than 50% with a sniff. This suggests a low right atrial pressure of 3 mm Hg. No obvious valvular vegetation seen however if there is a clinical suspicion for for endocarditis is high, consider ELLEN. Refer to structural heart disease expert for TAVR evaluation. Procedure: A two-dimensional transthoracic echocardiogram with color flow and Doppler was performed. The study quality was technically adequate. Comparison is made with the echocardiogram of 12/18/2019. The patient was in sinus rhythm with heart rates between 79-87 bpm during the exam. Left Ventricle: The left ventricle is normal in size. Proximal septal thickening is noted. There is no thrombus. The ejection fraction is estimated to be 70-75%. The left ventricle is hyperdynamic. There are no focal wall motion abnormalities. Diastolic parameters suggest a relaxation abnormality of the left ventricle, consistent with probable normal filling pressures. Right Ventricle: The right ventricle is normal in size and function. Atria: The left atrial size is normal. Both atria have remained unchanged in size since the prior echo exam. Right atrial size is normal. There is no Doppler evidence for an interatrial shunt. Mitral Valve: There is mild to moderate mitral annular calcification. The mitral valve chordae are thickened and/or calcified. There is trace mitral regurgitation. Aortic Valve: The aortic valve is severely calcified. The aortic valve is trileaflet. There is severely reduced leaflet mobility. There is severe aortic stenosis. The peak aortic velocity is 4.78 m/sec. The aortic valve mean gradient is 50 mmHg. The peak aortic velocity on the previous exam was 3.4 m/sec. No aortic regurgitation is present. Tricuspid Valve: There is tricuspid annular calcification. There is trace tricuspid regurgitation. Pulmonary artery pressures cannot be estimated because of the lack of a measurable TR jet velocity. Pulmonic Valve: The pulmonic valve is not well seen, but is grossly normal. There is trace pulmonic regurgitation. Great Vessels: The aortic root is normal size. There is aortic root sclerosis/calcification. The ascending aorta is mildly enlarged. The IVC is of normal diameter and collapses greater than 50% with a sniff. This suggests a low right atrial pressure of 3 mm Hg. Pericardium/ Pleura There is no pericardial effusion. There is no pleural effusion. MMode/2D Measurements & Calculations LVIDd: 5.2 cm LVOT diam: 2.3 cm LVIDs: 3.1 cm Ao root diam: 3.4 cm FS: 39.5 % asc Aorta Diam: 4.0 cm IVSd: 0.75 cm Ao Arch Diam (Prox Trans): 3.4 cm LVPWd: 1.1 cm LV tsaton. diameter/BSA (cm/m^2): 2.1 LV sys. diameter/BSA (cm/m^2): 1.3 LA A2 area: 19.1 cm2 RA long axis: 5.2 cm LA A4 area: 17.6 cm2 RA area: 17.0 cm2 LA length (vol): 5.3 cm RA vol: 47.0 ml LA vol: 53.7 ml RA : 19.5 ml/m2 LA vol index: 22.2 ml/m2 IVC diam: 1.8 cm RVD1 (basal): 2.9 cm TAPSE: 2.2 cm Doppler Measurements & Calculations Ao V2 max: 478.6 cm/sec LVOT Max Shree: 155.2 cm/sec Ao V2 mean: 321.4 cm/sec LV V1 max P.6 mmHg Ao max P.3 mmHg LV V1 VTI: 26.6 cm Ao mean P.0 mmHg JOHN(I,D): 1.2 cm2 Ao V2 VTI: 92.6 cm JOHN(V,D): 1.3 cm2 sev ratio: 0.29 JOHN indexed to BSA (cm^2/m^2): 0.49 MV E max shree: 79.0 cm/sec PA pr(Accel): 40.5 mmHg MV A max shree: 86.4 cm/sec MV E/A: 0.91 Med Peak E' Shree: 6.9 cm/sec E/E' med: 11.5 Lat Peak E' Shree: 8.8 cm/sec E/E' lat: 9.0 E/e' average: 10.2 MV dec time: 0.26 sec SV(LVOT): 110.4 ml Reading Physician:01:45 PM
[2021-06-04] MEDS: ACETAMINOPHEN 325 MG TABLET 650 MG PO (18:03)
[2021-06-04] MEDS: SENNOSIDES 8.6 MG TABLET 17.2 MG PO (20:13)
[2021-06-05] VITALS (16 sets, daily range): BP systolic 133–155; BP diastolic 69–88; PULSE 73–102; RESP 14–21; TEMP 36.5–38.4; O2SAT 92–97
[2021-06-05] MEDS: cefTRIAXone 2,000 MG in SODIUM CHLORIDE 0.9% 100 ML 200 ML IV (05:08)
[2021-06-05] MEDS: OXYCODONE IR 10 MG TABLET PO ×2 (05:14→09:03)
[2021-06-05] MEDS: ASPIRIN EC 81 MG TABLET PO ×2 (09:00→20:04)
[2021-06-05] MEDS: CLOPIDOGREL 75 MG TABLET PO (09:00)
--- NOTE | 2021-06-05 09:05 | P.PN_ITS ---
Subjective Subjective Date Patient Seen: 06/05/21 Interval history: He is seen in his room here to follow up his Strep Mitans Bacteremia and septic right knee. I spoke today with Cardiology and with Infectious Disease about the treatment approach. They recommend a full 4 week IV ceftriaxone treatment plan and a follow-up with Infectious Disease during that treatment. They that indica te that the oral antibiotic option is only with bacteremia that is Gram-negative and not for Gram-positive bacteremia. They requested that we send the knee joint aspiration for bacterial PCR but the lab indicates that the material would have had to be frozen within 24 hours for that to be done and this is now several days later. Exam Vital Signs (past 8 hours): - 06/05/21 01:34 06/05/21 02:00 06/05/21 02:05 Temperature 97.7 F Pulse Rate 79 Respiratory Rate 17 Blood Pressure 147/79 H Pulse Oximetry 93 94 94 06/05/21 04:25 06/05/21 06:30 06/05/21 07:20 Temperature 98.5 F 97.7 F Pulse Rate 75 73 Respiratory Rate 18 17 Blood Pressure 133/69 134/78 Pulse Oximetry 94 93 92 Oxygen Delivery Method Room Air Oxygen Flow Rate 0 Narrative Exam Narrative: He is alert and oriented X 3. No apparent distress. Heart is RRR with a 2/6 JANIE. Lungs are CTAB He has no obvious dental abscess or oral infections He has no ankle edema The right knee wrap/dressing is intact. The drain is out. Objective Labs Result Diagrams: 06/04/21 05:18 06/03/21 04:30 Labs: Laboratory Results - last 24 hr 06/02/21 22:59 A. baumannii (PCR) Not detected Priyanka albicans (PCR) Not detected C. glabrata (PCR) Not detected C. krusei (PCR) Not detected C. parapsilosis (PCR) Not detected C. tropicalis (PCR) Not detected Enterobacteriac sp PCR Not detected E. cloacae complex PCR Not detected Enterococcus sp PCR Not detected E. coli (PCR) Not detected H. influenzae (PCR) Not detected Klebsiella oxytoca PCR Not detected Klebsiella pneumoniae Not detected List. monocytogenes PCR Not detected N. meningitidis (PCR) Not detected Proteus species (PCR) Not detected Serratia marcescens PCR Not detected Staphylococcus sp PCR Not detected Staph aureus (PCR) Not detected Streptococcus sp PCR Detected H Group A Strep (PCR) Not detected Strep agalactiae (PCR) Not detected Strep pneumoniae (PCR) Not detected P. aeruginosa (PCR) Not detected PFSH Medical History BPH (benign prostatic hyperplasia) Chronic insomnia Coronary artery disease Hyperlipidemia Hypertension Lumbar degenerative disc disease Moderate aortic stenosis by prior echocardiogram Restless leg syndrome Urinary incontinence Surgical History Hx of appendectomy (~2018) S/P TURP (~2017) Social History household members: spouse Smoking Status: Former smoker alcohol intake: current Assessment & Plan Assessment & Plan narrative: Onesimo Oakley is a 80 year old male with a history of BPH with urinary retention, CAD, with aortic stenosis, hyperlipidemia, hypertension, and obesity who presented to the ED with acute right knee pain and swelling x 1 day.? He developed fever overnight without any clear source, so is being managed as presumed septic arthritis. 1. Streptococcus Mitis Oralis Bacteremia/septic arthritis of the R knee. ?- WBC count 11K on R knee aspiration. He had high fevers overnight without other overt source of infection. CXR was unremarkable as was UA. ?- appreciate Dr. Kang, arthroscopic washout on 06/03 ?- uric acid at 3.4, no history of gout. ESR 61. CRP 5.0. ?- blood cultures pending growing Streptococcus Mitis Oralis -the option of bacterial PCR of the knee joint aspiration was discussed with the lab who indicates that since the fluid was not frozen within 24 hours it will not be able to be done. - Discussed with Orthopedics, ID and Cardiology on 06/05. Dr. Amezquita recommends 4 weeks of Ceftriaxone IV (she would only use filler leaf cutter long oral antibiotics for Gram Negative Bacteremia/Joint infections). He should be arranged to f/u with Dr. Amezquita at [facility] I[facility] clinic. - Cardiology recommends that the Severe Aortic Stenosis on Echo be followed up at [facility] and says that doing a ELLEN at this point would not change the 4 week treatment regimen. 2. Mild hyponatremia, acute, with mild OPAL, acute, present on admission -sodium 132, creatinine 1.27, glucose 157, GFR 54.8.? 06/02/2021 creatinine 1.13, GFR>60. -NS at 100 cc/HR 3. Essential hypertension, acute on chronic, present on admission -patient's initial blood pressure is 174/81, 172/81 and is now normal -continue metoprolol 4. Hyperlipidemia, chronic, present on admission -continue rosuvastatin 5. BPH with lower urinary tract symptoms, and urinary retention, acute on chronic, present on admission -continue trospium 6. Overweight as evidence by BMI of 31.4, acute on chronic, present on admission -Dietary consult placed 7.? Severe aortic stenosis -Echo done 06/05 -No vegetations seen. D/W cardiology who did not feel that a ELLEN would change the treatment approach at this point. -he will need to be referred as an outpatient for potential aortic valve replacement. Code status:Full Surrogate decision maker: Nehal Oakley DVT/VTE prophylaxis:?on hold due to recent surgery Disposition:?inpatient.? Pending PT eval. Time Spent With Patient Critical Care time: I spent a total of [] minutes of critical care time on this patient's care toda y; this time is exclusive of procedural time. Quality VTE Deep Vein Thrombosis/Pulmonary Embolism Present on Admission: No
--- NOTE | 2021-06-05 09:46 | PT.IPTN ---
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) Surgery Performed Operation Date: 06/03/21 17:15 Actual Procedures p Arthroscopic Knee Washout(Right) - Enrique Kang MD Physical Therapy Treatment Note M2 PT-IP Current Condition Start: 06/04/21 12:36 Freq: NEEDED Status: Active Protocol: Document 06/04/21 10:51 AB (Rec: 06/04/21 12:53 AB [email or web address]) Physical Therapy Current Condition Current Condition Evaluation Date 06/04/21 Treatment Diagnosis R knee sepsis s/p I&D; difficulty in walking Onset Date 06/02/21 M3 PT-IP Subjective Start: 06/04/21 12:36 Freq: NEEDED Status: Active Protocol: Document 06/05/21 09:46 AW (Rec: 06/05/21 10:44 AW [id number]) Subjective Physical Therapy Visit Type Type Treatment Note Visit Start Time 09:17 Visit Stop Time 09:46 Total Visit Minutes 29 Number of VOCATIONAL SERVICES SPECIALIST Visits 0 Physical Therapy Visit Comments Patient Comments agreeable to do PT Therapy Pain Assessment Pain When Pain Assessed During Mobility Pain Present Pain Present Pain Reported Location right knee Intensity 8 Scale Used Numeric (0 - 10) Pain Behaviors Facial Grimacing,Guarding, Wincing Pain Management Techniques Apply Cold,Modification of Treatment,Timing of Activity with Medications M4 PT-IP Mobility and Gait Start: 06/04/21 12:36 Freq: NEEDED Status: Active Protocol: Document 06/05/21 09:46 AW (Rec: 06/05/21 10:44 AW [id number]) PT-Bed Mobility Assessment Supine to Sit Supine to Sit Contact Guard Assistance Scooting Scooting to Edge of Bed Standby Assistance PT-Transfer Assessment Sit to and From Stand Sit to and from Stand Standby Assistance,Contact Guard Assistance Equipment Transfer Assistive Device Gait Belt,Front Wheeled Walker Orthotic/Prosthetic Devices or Brace: No Transfers Transfer Destination Chair,Toilet,Wheelchair Transfer Technique Pt ambulated w/ FWW Transfer Ability Level of Assist Contact Guard Assistance,Use of Upper Extremities Comments Mobility Comments Pt was lying in bed as PT arrived. He was anxious to get to the bathroom. With HOB flat, pt completed supine to sit SBA/CGA to guide RLE. He sat EOB and c/o increased pain in the right knee. He stood CGA and used FWW to ambulate to the toilet. Pt needed verbal cues to use grab bar on the right side and CGA to sit on the toilet. When finished, he stood CGA and used FWW to ambulate to the sink. Verbal cues required for pt to keep FWW within reach and squared up to the sink while performing oral hygiene. Pt was somewhat impulsive and left FWW while walking to the chair to sit. He needed assist to don a brief and pulled the drain connection while doing so. RN arrived to assist with drain management. Pt then stood and used FWW to ambulate outside the room, transferring to a w/c just outside CGA. He was pushed to the ICU stairs. He stood SBA and used FWW to ambulate to the stairs. After stair training, pt ambulated with FWW and w/c follow back to the room ~90 feet SBA. Pt transferred to the chair SBA and was left with ortho and RN attending. Gait Assessment Gait Gait Assistance Required: Standby Assistance,Contact Guard Assist Distance (Feet) 90 Able to Maintain Weight Bearing Status Yes During Gait Assistive Devices Assistive Device Gait Belt,Front Wheeled Walker Orthotic/Prosthetic Devices or Brace: No Gait Deviations General Gait Pattern Antalgic,Decreased Stride Length,Decreased Feet Clearance,Step-to Gait,Wide Based Gait Factors Limiting Gait Function Factors Limiting Gait Function Decreased Activity Tolerance, Decreased Strength,Limited Range of Motion,Pain,Poor Balance,Poor Safety Awareness, Respiratory Distress Comments Gait Comments Respiratory rate increased during all gait and stair training. Weightbearing RLE improved with distance. Stair Climbing Assessment Evaluation Level of Assist On Stairs Contact Guard Assistance Devices Stair Climbing Assistive Devices Right Railing Technique/Endurance Stair Climbing Direction Ascend and Descend Stair Climbing Technique Step to Step Number of Steps Climbed 10 Stair Climbing Set # Repetitions (reps) 1 Comments Stair Climbing Comments PT educated pt on technique and pt was able to perform without additional cues. PT-Balance Assessment Sitting Balance and Reactions Static Sitting Balance Ability Good Dynamic Sitting Balance Ability Good Standing Balance and Reactions Static Standing Balance Ability Fair Dynamic Standing Balance Ability Fair Device Used FWW M5 PT-IP Objective Assessments Start: 06/04/21 12:36 Freq: NEEDED Status: Active Protocol: Document 06/04/21 10:51 AB (Rec: 06/04/21 12:53 AB [id number]) Orientation Orientation/Cognition Level of Alertness Alert Orientation Name Language Function Ability Hard of Hearing Safety Awareness Decreased Safety Awareness Memory Description Short Term Impaired Gross Range of Motion Lower Extremity ROM Assessment Right Impaired Impairments R knee flexion: ~ 45 deg with increase guarding and c/o pain with PROM R knee extension: ~ 15 deg less to 0 Strength Lower Extremity Strength Assessment Right Impaired Hip 3+/5 Knee 3+/5 Sensation Assessment Sensation Gross Sensation WNL Muscle Tone Muscle Tone WNL Yes M6 PT-IP Treatment Start: 06/04/21 12:36 Freq: NEEDED Status: Active Protocol: Document 06/05/21 09:46 AW (Rec: 06/05/21 10:44 AW [id number]) Physical Therapy Treatment Education Education Provided Weight Bearing Status,Safety M7 PT-IP Assessment and Plan Start: 06/04/21 12:36 Freq: NEEDED Status: Active Protocol: Document 06/05/21 09:46 AW (Rec: 06/05/21 10:44 AW [id number]) PT Summary Assessment and Plan Potential Rehabilitation Potential Good Status of Condition at Evaluation Evolving Summary Impairments Pain,ROM,Strength,Balance, Coordination,Sensation,Tone, Cognition,Bed Mobility, Transfers,Gait,Activity Tolerance Progress Towards Goals Progressing Toward Goals Assessment Summary Pt continues to report 8-10/10 pain but required only SBA/ CGA for ambulation with FWW and stair management today. Pt will need assist at discharge and would benefit from some level of subacute rehab. If family able to assist pt at home, he may be safe to discharge home with assist and home health vs outpatient PT. Goals Bed Mobility Goal Independent Transfer Goal Independent,Front Wheeled Walker Gait Goal Independent,Front Wheel Walker Gait Distance 200 Other Goals up/down 14 steps L rail SBA Frequency of Treatment Frequency Of Treatment Twice a Day Treatment Plan Physical Therapy Treatment Plan Bed Mobility Training,Transfer Training,Gait Training, Therapeutic Exercise,Balance Retraining,Post Op Education, Discharge Planning,Hot or Cold Pack,Neuromuscular Re-ed, Coordination Retraining,Manual Therapy Weight Bearing Status Weight Bearing Status Weight Bear as Tolerated Allowed Weight Bearing Amount (enter % RLE WBAT or #) (%) Recommendations To Nursing Amount of Assist Needed 1 Person Assist Discharge Recommendations PT Discharge Recommendations Home with Assistance,Home Health,SNF Rehab,Outpatient PT ,Home vs SNF Transportation Needs at Discharge Private Vehicle,Wheelchair/ Cabulance
--- NOTE | 2021-06-05 09:53 | PM.PNPO.1 ---
Subjective Subjective Date Patient Seen: 06/05/21 Time Patient Seen: 09:53 Interval history: The patient reports that when he moves he has significant pain, but is painfree at rest. Exam Vital Signs (past 8 hours): - 06/05/21 02:00 06/05/21 02:05 06/05/21 04:25 Temperature 97.7 F Pulse Rate 79 Respiratory Rate 17 Blood Pressure 147/79 H Pulse Oximetry 94 94 94 06/05/21 06:30 06/05/21 07:20 Temperature 98.5 F 97.7 F Pulse Rate 75 73 Respiratory Rate 18 17 Blood Pressure 133/69 134/78 Pulse Oximetry 93 92 Oxygen Delivery Method Room Air Oxygen Flow Rate 0 Narrative Exam Narrative: He is observed walking in the hallway without a limp using a walker. He transfers easily to and from a chair. The knee is moderately swollen on examination after removing the dressing. There is no erythema. Drainage in the drain tubes is bloody, not purulent. Calf is soft. Drain output has been 60 mL in the last 24 hours. Objective Labs Result Diagrams: 06/04/21 05:18 06/03/21 04:30 Labs: Laboratory Results - last 24 hr 06/02/21 22:59 A. baumannii (PCR) Not detected Priyanka albicans (PCR) Not detected C. glabrata (PCR) Not detected C. krusei (PCR) Not detected C. parapsilosis (PCR) Not detected C. tropicalis (PCR) Not detected Enterobacteriac sp PCR Not detected E. cloacae complex PCR Not detected Enterococcus sp PCR Not detected E. coli (PCR) Not detected H. influenzae (PCR) Not detected Klebsiella oxytoca PCR Not detected Klebsiella pneumoniae Not detected List. monocytogenes PCR Not detected N. meningitidis (PCR) Not detected Proteus species (PCR) Not detected Serratia marcescens PCR Not detected Staphylococcus sp PCR Not detected Staph aureus (PCR) Not detected Streptococcus sp PCR Detected H Group A Strep (PCR) Not detected Strep agalactiae (PCR) Not detected Strep pneumoniae (PCR) Not detected P. aeruginosa (PCR) Not detected PFSH Medical History BPH (benign prostatic hyperplasia) Chronic insomnia Coronary artery disease Hyperlipidemia Hypertension Lumbar degenerative disc disease Moderate aortic stenosis by prior echocardiogram Restless leg syndrome Urinary incontinence Surgical History Hx of appendectomy (~2018) S/P TURP (~2017) Social History household members: spouse Smoking Status: Former smoker alcohol intake: current Assessment & Plan Post-op Postoperative Procedures: Procedures Operation Date: 06/03/21 17:15 Actual Procedure Side Surgeon p Arthroscopic Knee Washout Right Enrique Kang MD Postoperative day: 2 Postoperative status: doing well Postoperative status narrative: He is walking well. He still has significant discomfort upon moving the knee but is clearly functional. Drain output is reduced. It appears to be bloody drainage rather than infected drainage. In my note yesterday I incorrectly stated that his prior knee aspirate is growing Streptococcus. This result was actually from his blood cultures. His knee cultures to date have been sterile. They have also been negative for gout crystals. The Streptococcus mitis/oralis is likely from a dental source. Postoperative plan: routine post-op care Postoperative plan narrative: He presumptively has a Streptococcus septic arthritis of the right knee. He is going to undergo an echocardiogram looking for endocarditis this morning. His discharge antibiotic protocol likely depends on the outcome of the echocardiogram. I defer to Infectious Disease for determining length of treatment and antibiotic choice for his antibiotics. I would recommend a dental consultation as an outpatient in the near future. He should follow up in my office in 2 weeks for suture removal and re-evaluation of the knee. The drains were removed today during his examination. Time Spent With Patient Time with patient: 15-24 minutes Quality VTE Deep Vein Thrombosis/Pulmonary Embolism Present on Admission: No
--- NOTE | 2021-06-05 10:21 | PC.NURSE ---
Assumed care of pt at 0700. Pt sleeping in bed during hand-off report. Awakens to voice for breakfast. Drsg to knee c/d/i. CMS +, able to wiggle toes, denies numbness. H/V compressed and draining sero-sang drainage. Up with P.T. H/V tubes pulled out of drain chamber, Cleaned and reinserted to chamber by this keno writer. Dr. Kang in for rounding. Drsg changed and h/v removed by Dr. Kang. Gauze wrap and gualberto wrap reapplied.
--- NOTE | 2021-06-05 11:13 | CM.DPNOTE ---
DCP IV-Abx vs orals Per Ortho MD, pt tolerated knee washout well but pending cultures and ID MD consult to determine IV-Abx vs orals at discharge. Per OT, pt ambulated well and SBA and recommending safe d/c home and no need for HH at this time but PT to do stairs with pt this afternoon to confirm safe for home and r/o HH. SW met bedside with pt and explained role and he confirms mobility-morgan he is safe for d/c home with spouse. SW discussed IV-Abx potential options pending dosing frequency and updated pt that Medicare does not cover the cost of home infusion and therefore options would likely be SNF vs outpt infusion clinic depending on how many times a day he needs his IV-Abx. Pt acknowledges understanding and if possible would want outpt clinic over SNF. Pt hopeful or oral abx at d/c. Plan: SW to follow closely for final culture results and ID MD recommendations towards determining IV-Abx vs orals at d/c and then if IV-Abx the dosing frequency would determine outpt infusion clinic vs SNF. Pt's Medicare does not cover home infusion but maybe supplemental would flower picker part of cost? AUSTIN Smith Entered by AUSTIN Bowers - Note placed in error on wrong patient so copy/pasted on the correct chart 2.27.22
[2021-06-05] MEDS: OXYCODONE IR 5 MG TABLET 15 MG PO ×3 (12:17→21:45)
--- NOTE | 2021-06-05 14:59 | PT-IP ANOTE ---
Pt was fatigued after AM PT session and just got back to bed as PT was rounding again. Pt is very willing to work with PT again tomorrow.
[2021-06-05] MEDS: ACETAMINOPHEN 325 MG TABLET 650 MG PO (20:05)
[2021-06-05] MEDS: SODIUM CHLORIDE 0.9% FLUSH 10 ML IV (20:05)
[2021-06-05] MEDS: SENNOSIDES 8.6 MG TABLET 17.2 MG PO (20:05)
--- NOTE | 2021-06-05 20:48 | PC.NURSE ---
Patient is alert and oriented. Breath sounds CTA with RA sat of 96%. HRR. Denies nausea. BT present and is passing flatus but has not yet had BM; last one was 06/02. Is voiding per urinal; has chronic urgency and frequency but denies dysuria. Is able to move himself in bed. Gets out of bed with walker and 1 assist; gait not assessed at this time. Dressing to right knee covered with gualberto wrap is CDI. CMS is intact. Swelling of right LE noted. States pain is 5-6/10 but declines ice pack and states pain has improved since receiving oxycodone at 1819. Noted to have red pinpoint rash on back; lotion applied. Declines use of calf SCD's stating he is unable to sleep with them on. Fall risk score is high and bed alarm is activated.
[2021-06-06] VITALS (14 sets, daily range): BP systolic 132–144; BP diastolic 69–91; PULSE 77–82; RESP 14–16; TEMP 36.9–37; O2SAT 94–96
[2021-06-06] MEDS: cefTRIAXone 2,000 MG in SODIUM CHLORIDE 0.9% 100 ML 200 ML IV (05:33)
[2021-06-06] MEDS: SODIUM CHLORIDE 0.9% 250 ML 21 ML IV (05:34)
[2021-06-06] MEDS: SODIUM CHLORIDE 0.9% FLUSH 10 ML IV ×2 (05:34→09:06)
[2021-06-06] MEDS: OXYCODONE IR 5 MG TABLET 15 MG PO ×3 (05:46→17:54)
--- NOTE | 2021-06-06 07:11 | PM.PNPO.1 ---
Subjective Subjective Date Patient Seen: 06/06/21 Time Patient Seen: 07:11 Interval history: Sitting up in bed, comfortable, just received pain medication. Aware of plan to discharge with IV antibiotics. Exam Vital Signs (past 8 hours): - 06/06/21 00:00 06/06/21 00:01 06/06/21 01:27 Temperature 98.4 F Pulse Rate 82 Respiratory Rate 16 Blood Pressure 132/75 Pulse Oximetry 95 95 95 06/06/21 04:16 06/06/21 06:00 Temperature 98.6 F Pulse Rate 78 Respiratory Rate 14 Blood Pressure 133/91 H Pulse Oximetry 95 95 Oxygen Delivery Method Room Air Oxygen Flow Rate 0 Narrative Exam Narrative: AA&O x 3. Calves soft and compressible. Umesh bandage on knee CDI. Drain removed yesterday. No warmth or redness in right calf or thigh. Sensation to touch intact throughout RLE, strength and ROM intact. Objective Labs Result Diagrams: 06/04/21 05:18 06/03/21 04:30 Labs: Laboratory Results - last 24 hr 06/02/21 22:59 A. baumannii (PCR) Not detected Priyanka albicans (PCR) Not detected C. glabrata (PCR) Not detected C. krusei (PCR) Not detected C. parapsilosis (PCR) Not detected C. tropicalis (PCR) Not detected Enterobacteriac sp PCR Not detected E. cloacae complex PCR Not detected Enterococcus sp PCR Not detected E. coli (PCR) Not detected H. influenzae (PCR) Not detected Klebsiella oxytoca PCR Not detected Klebsiella pneumoniae Not detected List. monocytogenes PCR Not detected N. meningitidis (PCR) Not detected Proteus species (PCR) Not detected Serratia marcescens PCR Not detected Staphylococcus sp PCR Not detected Staph aureus (PCR) Not detected Streptococcus sp PCR Detected H Group A Strep (PCR) Not detected Strep agalactiae (PCR) Not detected Strep pneumoniae (PCR) Not detected P. aeruginosa (PCR) Not detected PFSH Medical History BPH (benign prostatic hyperplasia) Chronic insomnia Coronary artery disease Hyperlipidemia Hypertension Lumbar degenerative disc disease Moderate aortic stenosis by prior echocardiogram Restless leg syndrome Urinary incontinence Surgical History Hx of appendectomy (~2018) S/P TURP (~2017) Social History household members: spouse Smoking Status: Former smoker alcohol intake: current Assessment & Plan Post-op Postoperative Procedures: Procedures Operation Date: 06/03/21 17:15 Actual Procedure Side Surgeon p Arthroscopic Knee Washout Right Enrique Kang MD Postoperative day: 3 Postoperative status narrative: Blood cultures growing Streptococcus Mitis Oralis Knee cultures have preliminarily shown no growth. No gout crystals seen. Per Dr Nguyen, the option of bacterial PCR of the knee joint aspiration was discussed with the lab who indicates that since the fluid was not frozen within 24 hours it will not be able to be done. Dr Nguyen d/w Dr. Amezquita in ID, who recommends 4 weeks of Ceftriaxone IV Postoperative plan narrative: Will sign off from an orthopedic standpoint. Pt can WBAT on RLE and follow up w/ ortho in 10-12 days for suture removal and knee examination. Quality VTE Deep Vein Thrombosis/Pulmonary Embolism Present on Admission: No
[2021-06-06] MEDS: CLOPIDOGREL 75 MG TABLET PO (09:05)
[2021-06-06] MEDS: ASPIRIN EC 81 MG TABLET PO (09:05)
[2021-06-06] MEDS: METOPROLOL ER 50 MG TABLET 100 MG PO (09:05)
[2021-06-06] MEDS: AMLODIPINE 5 MG TABLET PO (09:05)
[2021-06-06] MEDS: OXYCODONE IR 5 MG TABLET PO (09:21)
--- NOTE | 2021-06-06 09:54 | OT.IPNOTE ---
Attempted to see pt for OT services. Pt declines all OT related needs at this time. PT states he has already performed his AM self care, remembers LB dressing training, and doesn't want to shower here. Will hold and continue to follow.
--- NOTE | 2021-06-06 10:36 | PT.IPTN ---
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) Surgery Performed Operation Date: 06/03/21 17:15 Actual Procedures p Arthroscopic Knee Washout(Right) - Enrique Kang MD Physical Therapy Treatment Note M2 PT-IP Current Condition Start: 06/04/21 12:36 Freq: NEEDED Status: Active Protocol: Document 06/04/21 10:51 AB (Rec: 06/04/21 12:53 AB [id number]) Physical Therapy Current Condition Current Condition Evaluation Date 06/04/21 Treatment Diagnosis R knee sepsis s/p I&D; difficulty in walking Onset Date 06/02/21 M3 PT-IP Subjective Start: 06/04/21 12:36 Freq: NEEDED Status: Active Protocol: Document 06/06/21 10:20 KS (Rec: 06/06/21 11:21 KS [id number]) Subjective Physical Therapy Visit Type Type Treatment Note Visit Start Time 10:20 Visit Stop Time 10:36 Total Visit Minutes 16 Number of WEB DEVELOPMENT CONSULTANT Visits 1 Physical Therapy Visit Comments Patient Comments agreeable to do PT Therapy Pain Assessment Pain When Pain Assessed During Mobility Pain Present Pain Present Pain Reported M4 PT-IP Mobility and Gait Start: 06/04/21 12:36 Freq: NEEDED Status: Active Protocol: Document 06/06/21 10:20 KS (Rec: 06/06/21 11:21 KS [id number]) PT-Bed Mobility Assessment Scooting Scooting to Edge of Bed Standby Assistance PT-Transfer Assessment Sit to and From Stand Sit to and from Stand Standby Assistance,1 Person Assistance,Use of Upper Extremities Equipment Transfer Assistive Device Gait Belt,Front Wheeled Walker Orthotic/Prosthetic Devices or Brace: No Transfers Transfer Destination Chair Transfer Technique Pt ambulated w/ FWW Transfer Ability Level of Assist Contact Guard Assistance,Use of Upper Extremities Comments Mobility Comments Pt in chair upon arrival and requesting to ambulate. SBA for sit<>stand w/ FWW, pt then ambulated ~120 ft w/ FWW SBA to [facility] and returned to chair. Discussed at home safety and stairs. Pt feels safe to return home and says he has no further needs or concerns. Suggested HHPT or outpatient to improve strength and ROM. Gait Assessment Gait Gait Assistance Required: Standby Assistance,Contact Guard Assist Distance (Feet) 120 Able to Maintain Weight Bearing Status Yes During Gait Assistive Devices Assistive Device Gait Belt,Front Wheeled Walker Orthotic/Prosthetic Devices or Brace: No Gait Deviations General Gait Pattern Antalgic,Decreased Stride Length,Decreased Feet Clearance,Step-to Gait,Wide Based Gait Factors Limiting Gait Function Factors Limiting Gait Function Decreased Activity Tolerance, Decreased Strength,Limited Range of Motion,Pain,Poor Balance,Poor Safety Awareness, Respiratory Distress Comments Gait Comments Respiratory rate increased during gait training. Weightbearing RLE improved with distance. Stair Climbing Assessment Comments Stair Climbing Comments Pt feels he does not need to practice stairs again. PT-Balance Assessment Sitting Balance and Reactions Static Sitting Balance Ability Good Dynamic Sitting Balance Ability Good Standing Balance and Reactions Static Standing Balance Ability Fair Dynamic Standing Balance Ability Fair Device Used FWW M5 PT-IP Objective Assessments Start: 06/04/21 12:36 Freq: NEEDED Status: Active Protocol: Document 06/04/21 10:51 AB (Rec: 06/04/21 12:53 AB [id number]) Orientation Orientation/Cognition Level of Alertness Alert Orientation Name Language Function Ability Hard of Hearing Safety Awareness Decreased Safety Awareness Memory Description Short Term Impaired Gross Range of Motion Lower Extremity ROM Assessment Right Impaired Impairments R knee flexion: ~ 45 deg with increase guarding and c/o pain with PROM R knee extension: ~ 15 deg less to 0 Strength Lower Extremity Strength Assessment Right Impaired Hip 3+/5 Knee 3+/5 Sensation Assessment Sensation Gross Sensation WNL Muscle Tone Muscle Tone WNL Yes M6 PT-IP Treatment Start: 06/04/21 12:36 Freq: NEEDED Status: Active Protocol: Document 06/06/21 10:20 KS (Rec: 06/06/21 11:21 KS [id number]) Physical Therapy Treatment Education Education Provided Weight Bearing Status,Safety M7 PT-IP Assessment and Plan Start: 06/04/21 12:36 Freq: NEEDED Status: Active Protocol: Document 06/06/21 10:20 KS (Rec: 06/06/21 11:21 KS [id number]) PT Summary Assessment and Plan Potential Rehabilitation Potential Good Status of Condition at Evaluation Evolving Summary Impairments Pain,ROM,Strength,Balance, Coordination,Sensation,Tone, Cognition,Bed Mobility, Transfers,Gait,Activity Tolerance Progress Towards Goals Progressing Toward Goals Assessment Summary Pt reported less pain after medication this AM. Agreeable to ambulation, but refused further stair training or bed mobility. Ambulated ~120 ft w/ FWW SBA to CGA increasied respiratory rate but denied SOB. Pt feels safe to return home. Suggested outpatient rehab to improve strength and ROM. Goals Bed Mobility Goal Independent Transfer Goal Independent,Front Wheeled Walker Gait Goal Independent,Front Wheel Walker Gait Distance 200 Other Goals up/down 14 steps L rail SBA Frequency of Treatment Frequency Of Treatment Twice a Day Treatment Plan Physical Therapy Treatment Plan Bed Mobility Training,Transfer Training,Gait Training, Therapeutic Exercise,Balance Retraining,Post Op Education, Discharge Planning,Hot or Cold Pack,Neuromuscular Re-ed, Coordination Retraining,Manual Therapy Weight Bearing Status Weight Bearing Status Weight Bear as Tolerated Allowed Weight Bearing Amount (enter % RLE WBAT or #) (%) Recommendations To Nursing Amount of Assist Needed 1 Person Assist Discharge Recommendations PT Discharge Recommendations Home with Assistance,Home Health,SNF Rehab,Outpatient PT ,Home vs SNF Transportation Needs at Discharge Private Vehicle,Wheelchair/ Cabulance
--- NOTE | 2021-06-06 11:10 | CM.DPC ---
Addendum entered by Pat Marroquin R.N. 06/06/21 12:50: Spoke to Donovan at [facility]. He stated that if patient did not have home health services in, the cost of the medication would be about $500.00 a week. Since home health is being ordered, he indicated that it will be about $300.00 per week. He indicated that he had already spoke to about cost, is ok with the cost. Donovan indicated that they plan on arriving at patient's home tomorrow at approximately noon. Awaiting DC Summary at this time, and will fax to [facility] [employer] [facility]. Original Note: DCP Cont: Patient will be discharged today. Plan is home with [facility], have been in contact with Donoavn. He has had today's IV ABO already, since it is every 24 hours. Patient is comfortable with home IV ABO. With patient's permission, updated spouse, Nehal. Will also order home health, patient has no preference. Signature is on calendar, brought him a brochure. Will order RN. P.T, O.T. Donovan at [facility] will plan on nurse going to patient's house tomorrow. He is running information with patient's insurance, [employer], to see patient cost, and will update him. Confirmed with Dr. Velazco that Dr. Gutiérrez, Infectious Disease Physician at [facility], will follow. Contacted Anuradha at [facility] and let her know about referral. Faxed her over face sheet, face to face (Dr. Velazco signed), orders, H&P, and P.T. notes. DC Summary is pending. Patient does not yet have PICC line in place, DI nurse will be here today. P: Patient should be going home today with [facility] and [facility]. Pat Marroquin RN/Hat Blocker
--- NOTE | 2021-06-06 16:42 | DI.RAD.S_ITS ---
PROCEDURE: XR CHEST FOR PICC 1V INDICATIONS: PICC placement COMPARISON: [facility], , XR CHEST 1V, 06/02/2021, 20:18. FINDINGS: PICC was placed by the intravenous therapy team from the right side. Fluoroscopic spot film demonstrates the tip of PICC projecting to the area of distal SVC. Heart is enlarged. IMPRESSION: Tip of PICC projects to the area of distal SVC. Dictated by: Keyana Gomez M.D. on 06/06/2021 at 17:01 Approved by: Keyana Gomez M.D. on 06/06/2021 at 17:02
--- NOTE | 2021-06-06 18:04 | PC.NURSE ---
A&Ox4. HTN: 144/80. other vitals stable. Pain 8/10, 15 mg of PRN oxycodone given. Helped to lower pain to around 2-3/10. Umesh wrap on right knee, CDI. Good appetite. 1 person assist to bathroom or chair. PICC placed. Reviewed discharge information. PIV removed. Off of unit at 1800, friend driving home.
--- NOTE | 2021-06-09 19:45 | P.DS_ITS ---
History of Present Illness History of Present Illness Date Patient Seen: 06/06/21 Chief complaint: Right knee swollen - pain level 10 Narrative: Onesimo Oakley is a 80 year old male with a history of BPH with urinary retention, CAD, with aortic stenosis, hyperlipidemia, hypertension, and obesity who presented to the ED with acute right knee pain and swelling x 1 day. Upon admit patient is a poor historian, difficulty completing thoughts and sentences.? Patient did receive both morphine and Dilaudid in the ED which may be causing confusion. I am unable to get a clear history. Patient denies injury or surgery.? Painful with any attempts to bend the knee or weight-bearing.? Patient did ambulate by himself with antalgic gait from room to the bathroom and back easily for several hours in the ED.? Dr. Marc tapped the knee and was planning on sending the patient home for outpatient follow-up.? The patient then suffered 2 falls in the ED, following administration of 1 mg of Dilaudid in 2 mg of morphine.? It was then determined the patient was unsafe to be discharged home. Patient complains of fever and chills over the past 2 weeks.? During admit exam patient is extremely diaphoretic agitated restless.? His right knee is erythemic,? inflamed, warm to touch, and painful to touch with exam. Patient denies chest pain, shortness of breath, abdominal pain, nausea, vomiting, diar yasmany, hematemesis, hematuria, melena, numbness, tingling, new swelling of hands or feet, any recent illness, injury , or trauma. No changes in medicaiton. Patient's vitals upon admit temp 97.4?, BP hypertensive 174/81, HR 100, R 29, O2 saturation 96% on room air.? Patient has a white count 12.2, neutrophils 10,200, HGB 11.5, HCT 34.4, mild hyponatremia 132 bicarb 18, creatinine 1.27, glucose 157, GFR 54.8.? 06/02/2021 creatinine 1.13, GFR>60.? Patient has an ESR of 61, uric acid 3.4, total creatinine kinase 22, CRP 5.0, troponin WNL. Dimer 749.? Patient's head CT was negative for any intracranial processes, patient's chest x-ray is negative for any acute cardiopulmonary processes, right knee x-ray demonstrated mild effusion.? Lower extremity right CT demonstrated no acute osseous fracture, a small 7 mm ossified loose body within the lateral femorotibial joint space, with mild degenerative changes in the anterior compartment, and moderate joint effusion.? Arthrocentesis-fluid culture is negative.? Patient admitted for right knee pain, with mild hyponatremia. Discharge Providers Provider Date of admission: 06/02/21 22:16 Discharge Date: 06/06/21 Primary care physician: Taz Duffy MD Consults: 06/02/21 22:38 Consult to Dietitian, Adult Routine Comment: Reason For Exam: BMI 30.6 06/02/21 22:39 Consult to Occupational Therapy Evaluate & Treat Comment: weakness falls Physician Instructions: Evaluate and treat Consult to Physical Therapy Evaluate & Treat Comment: weakness falls Physician Instructions: Evaluate and Treat 06/03/21 06:16 Consult to ORTHOTICS PROSTHETICS ASSISTANT - Assembler Trim Routine Comment: Safety to go home ORTHOTICS PROSTHETICS ASSISTANT Consult needed for:: Community Health Res Need 06/03/21 10:36 Consult to Orthopedic Surgery Routine Comment: Consulting Provider: Enrique Kang Reason for consultation: poss R septic knee Has provider been notified: Yes 06/03/21 21:56 Consult to Discharge Planning Routine Comment: IV antibiotics for 2-6 weeks per infectious diseas Consult to Physical Therapy Evaluate & Treat Comment: Physician Instructions: Evaluate and Treat 06/06/21 10:57 Consult to Home Health Routine Comment: Reason For Exam: Home Health RN, P.T, O.T. Discharge provider: Shayla Velazco MD Summary Hospital Course Discharge Diagnosis: 1. Septic arthritis of the right knee, secondary to strep mitis 2. Status post right knee aspiration 3. Hyponatremia 4. Hypertension 6. Hyperlipidemia 7. BPH 8. Aortic stenosis Hospital Course: Patient was admitted to the hospital for right knee pain, he was found have strep might tense bacteremia and a septic right knee. Patient's blood cultures grew Staph might in size, he was placed on IV ceftriaxone for 4 weeks of treatment. Attempts were made to send the aspirate for PCR however we were unable to do so. Patient made slow but steady progress and was deemed appropr iate for discharge home. Status at Discharge Cognitive/behavioral status at discharge: oriented Functional status at discharge: uses cane/walker Overall status at discharge: patient is not back to baseline Exam Vital Signs (past 8 hours): Oxygen Delivery Method Room Air Oxygen Flow Rate 0 Narrative Exam Narrative: Pleasant male in no acute distress Resp Other: Lungs clear to auscultation Cardio Other: Cardiac exam: Regular rate rhythm normal S1 GI Other: Abdomen soft nontender Extrem Other: Right knee swollen, slightly tender to palpation Objective Labs Result Diagrams: 06/04/21 05:18 06/03/21 04:30 PFSH Medical History BPH (benign prostatic hyperplasia) Chronic insomnia Coronary artery disease Hyperlipidemia Hypertension Lumbar degenerative disc disease Moderate aortic stenosis by prior echocardiogram Restless leg syndrome Urinary incontinence Surgical History Hx of appendectomy (~2017) S/P TURP (~2017) Social History household members: spouse Smoking Status: Former smoker alcohol intake: current Discharge Assessment & Plan Assessment and Plan Assessment: Septic arthritis of the right knee, secondary to strep mitis 2. Status post right knee aspiration 3. Hyponatremia 4. Hypertension 6. Hyperlipidemia 7. BPH 8. Aortic stenosis Plan of Treatment: Discharge home antibiotics as described above Discharge Plan Discharge Plan Patient Disposition: Home Health Service Transfer to: [facility] Discharge orders & Medications Prescriptions: New sennosides [senna] 8.6 mg Tablet 17.2 mg PO BEDTIME Qty: 20 0RF ceftriaxone 2 gram recon soln 2 g IV Q24H Qty: 27 0RF oxycodone 15 mg tablet 15 mg PO Q6H PRN (Reason: pain) Qty: 20 0RF Continued metoprolol succinate 100 mg tablet extended release 24 hr 100 mg PO DAILY 0RF rosuvastatin 5 mg Tablet 5 mg PO DAILY 0RF trospium 20 mg tablet 20 mg PO BEDTIME 0RF amlodipine 5 mg tablet 5 mg PO DAILY 0RF clopidogrel 75 mg PO DAILY 0RF Medication counseling provided by Pharmacist: No Follow up/Referrals: Taz Duffy MD [Primary Care Provider] - Enrique Kang MD [Physician] - (Follow up with ortho in 10-12 days for suture removal and re-evaluation of knee.) Discharge Health Status Health Concerns: Needs f/u appointment with Dr. Amezquita at [facility] Infectious Diseases in one week Diet/Activity/Treatments Diet: Low-sodium and Low-cholesterol Visit Report/Discharge Packet Instructions: DI for Septic Arthritis, How to Prevent Falls, DI for Prescription Opioid Use Discharge Data Primary Care Provider: Taz Duffy VTE Deep Vein Thrombosis/Pulmonary Embolism Present on Admission: No
== END 2021-06-06 18:00 | disposition home or self-care (01) | DRG 486 ==
LOC: ED 22:17 → AC 06-03 07:05
PROVIDERS: Emergency Medicine; Orthopaedic Surgery; Admitting Provider Nurse Practitioner Family; Emergency Provider Emergency Medicine; PCP Internal Medicine; Referring Provider Emergency Medicine; Visit Provider Nurse Practitioner Family
PROC: 0SBC4ZZ Excision of Right Knee Joint, Percutaneous Endoscopic Approach (ICD-10-PCS; CPT 29870; principal; 2021-06-03 17:15)
DX: M00.261 Other streptococcal arthritis, right knee (principal); R78.81 Bacteremia; E87.1 Hypo-osmolality and hyponatremia; N17.9 Acute kidney failure, unspecified; I35.0 Nonrheumatic aortic (valve) stenosis; B95.4 Other streptococcus as the cause of diseases classified elsewhere; K04.7 Periapical abscess without sinus; I10 Essential (primary) hypertension; W18.11XA Fall from or off toilet without subsequent striking against object, initial encounter; E78.5 Hyperlipidemia, unspecified; N40.1 Benign prostatic hyperplasia with lower urinary tract symptoms; R33.8 Other retention of urine; Z20.822 Contact with and (suspected) exposure to COVID-19
CPT/HCPCS: 20610; 36415; 36569; 70450; 71045; 73562; 73700; 80053; 81001; 82550; 82553; 82962; 83605; 83735; 83880; 84145; 84484; 84550; 85025; 85027; 85379; 85651; 86140; 87040; 87070; 87075; 87077; 87086; 87150; 87205; 87635; 89051; 89060; 93005; 93306; 94760; 96374; 96375; 97116; 97162; 97165; 97530; 99285; C9803; J0696; J1170; J2270; J2405; J2704; J3010

== ENCOUNTER 2021-07-29 07:36 | Observation (INO) | payer MEDICARE, OTHER, SELFPAY ==
[2021-06-02 22:57] VITALS: BMI 31.4
[2021-07-29] VITALS (28 sets, daily range): BP systolic 109–139; BP diastolic 48–70; PULSE 58–79; RESP 13–22; TEMP 36.3–36.8; O2SAT 95–100; BMI 27.5
--- NOTE | 2021-07-29 07:55 | ED.SKABFB ---
HPI - Skin/Abscess/Foreign Bdy General Chief complaint: Wound/Laceration Stated complaint: abscess drainage around groin area Time Seen by Provider: 07/29/21 07:46 Source: patient and old records reviewed Mode of arrival: Ambulatory Limitations: no limitations History of Present Illness HPI narrative: This is a 80-year-old male who arrives with area of swelling pain and drainage in his right peroneal groin region that started about a week ago which is being increasingly growing in size continuing to drain becoming more painful and now has redness tracking up with the testicles and upper abdomen. Patient has been afebrile he states the pain is certainly present but tolerable. Patient denies any chest pain or shortness of breath. No nausea or vomiting. He has not any diarrhea constipation. He states no pain when he has bowel route movements or stools at the rectal area. Denies dysuria urgency or frequency. He states there has been some drainage on his underwear but he does not appreciate purulent fluid. Patient walked has noted some redness tracking over his abdomen. He denies any intra-abdominal or pelvic pain. He states his testicles have become swollen in the last 2 days. Patient has not had skin infections in the past. He has a history significant for cardiac stents he believes he has had 6 total he was on Plavix until recently and states this has been stopped by his straightening machine feeder. He also has had an eventful 2 months with septic joint in his right knee and hospitalization for this followed by a fall which resulted in a head bleed where he was transferred from [facility] to [facility]. He is unsure he was discharged in states readmitted possibly to another facility secondary to this but does not recall the events of this. He is on medication for hypertension, dyslipidemia. He is allergic to minocycline. No tobacco, was drinking an alcoholic drink nightly but has quit since his head bleed no illicit or recreational drugs. His primary care is Dr. Duffy. Related Data Home Medications Medication Instructions Recorded Confirmed metoprolol succinate 100 mg 50 mg PO DAILY 04/25/18 07/29/21 tablet,extended release 24 hr rosuvastatin 5 mg tablet 20 mg PO DAILY 05/23/19 07/29/21 trospium 20 mg tablet 20 mg PO BEDTIME 05/23/19 07/29/21 amlodipine 5 mg tablet 10 mg PO DAILY 06/02/21 07/29/21 aspirin 81 mg capsule 81 mg PO DAILY 07/29/21 07/29/21 isosorbide mononitrate 60 mg 60 mg PO DAILY 07/29/21 07/29/21 tablet,extended release 24 hr Allergies Allergy/AdvReac Type Severity Reaction Status Date / Time minocycline Allergy Unknown Verified 07/29/21 07:52 atorvastatin AdvReac Intermediate Fatigued Verified 06/02/21 12:21 Review of Systems Review of Systems ROS Unobtainable: All systems reviewed & are unremarkable except as noted in HPI and below Patient History Medical History (Updated 07/29/21 @ 08:46 by Sandra Sainz DO) BPH (benign prostatic hyperplasia) Chronic insomnia Coronary artery disease Hyperlipidemia Hypertension Lumbar degenerative disc disease Moderate aortic stenosis by prior echocardiogram Restless leg syndrome Urinary incontinence Surgical History Hx of appendectomy (~2018) S/P TURP (~2017) Social History household members: spouse Smoking Status: Former smoker alcohol intake: former Smoking Status: Former smoker alcohol intake frequency: holidays/special occasions only Substance Use Type: does not use Exam Narrative Exam Narrative: GENERAL: Alert and oriented x three, elderly male in mild distress. HEENT: Head normocephalic, atraumatic, EOMI, pupils reactive, face symmetric, moist mucous membranes NECK: Supple, full range of motion CARDIOVASCULAR: Regular rate and rhythm without murmurs, rubs or gallops. RESPIRATORY: Breath sounds equal bilaterally, no wheezes rales or rhonchi. ABDOMEN: Soft, nontender. Normoactive bowel sounds all 4 quadrants. No guarding or rebound, rigidity, no mass : No CVA tenderness. Male: Patient has small open wound in the right perineum posterior to the testicles but lateral in the crease of the groin. Patient has induration extending about 4 cm. I am not able to clearly express drainage serosanguineous or purulent. There is erythema tracking from the wound the perineum slightly into the thigh, the testicles are erythematous and swollen but nontender. No necrotic, dusky or pallor on skin. The patient has erythema tracking into the pubic area about 3-4 cm above the pubic bone. There is no crepitus or subcutaneous emphysema appreciated throughout the exam. No Penile discharge or lesions, cremasteric reflex intact, no inguinal hernias noted. EXTREMITIES: Normal range of motion, no clubbing or edema. Neurovascularly intact. Normal gait. NEUROLOGICAL: Cranial nerves II through XII grossly intact. Moving all extremities SKIN: Warm, dry, no petechiae. Patient does not have any other rashes or skin changes appreciated elsewhere. Initial Vital Signs Initial Vital Signs: Vital Signs Temperature 97.3 F L 07/29/21 07:45 Pulse Rate 77 07/29/21 07:45 Respiratory Rate 18 07/29/21 07:45 Blood Pressure 139/67 07/29/21 07:45 Pulse Oximetry 99 07/29/21 07:45 Course Orders Ordered: ED Orders 07/29/21 11:01 Urinalysis and Microscopic Stat Acetaminophen (Acetaminophen 325 Mg Tablet) 975 mg PO Q8HR PRN PRN Reason: Pain, Mild (1-3) Aspirin (Aspirin 81 Mg Chew Tab) 81 mg PO DAILY CINDY Hydromorphone HCl (Hydromorphone 2 Mg Inj) 0 mg IV Q5M PRN PRN Reason: Pain, Severe (7-10) Ceftriaxone Sodium 1,000 mg/ (Sodium Chloride) 100 mls @ 200 mls/hr IV Q24H CINDY Clindamycin Phosphate (Cleocin) 600 mg in 50 mls @ 50 mls/hr IV Q6H [facility] Last Admin: 07/29/21 16:24 Dose: 50 mls/hr Documented by: CPETRIC Vancomycin HCl (Vancomycin) 1,250 mg in 250 mls @ 250 mls/hr IV Q12H CINDY Sodium Chloride (Normal Saline 0.9%) 1,000 mls @ 100 mls/hr IV CONT CINDY Last Admin: 07/29/21 15:26 Dose: 100 mls/hr Documented by: CPETRIC Lactated Ringer's (Lactated Ringers) 1,000 mls @ 42 mls/hr IV CONT CINDY Last Infusion: 07/29/21 18:26 Dose: 0 mls/hr Documented by: [email or web address] Admin: 07/29/21 18:20 Dose: 42 mls/hr Documented by: [email or web address] Isosorbide Mononitrate (Isosorbide Mononitrate Er 30 Mg Tablet) 60 mg PO 0700 CINDY Trospium 20 Mg (Tablet) 20 mg PO BEDTIME [facility] Ondansetron HCl (Ondansetron 4 Mg/2 Ml Inj) 4 mg IV Q8HR PRN PRN Reason: Nausea And Vomiting Oxycodone HCl (Oxycodone Ir 5 Mg Tablet) 5 mg PO PACUNOW PRN PRN Reason: Mild or moderate pain Vancomycin HCl (Vancomycin Trough) 1 request MIS 1030 [facility] Stop: 07/30/21 10:31 Vancomycin HCl (Vancomycin Peak) 1 request MIS 1200 [facility] Stop: 07/30/21 12:01 Discontinued Medications Acetaminophen (Acetaminophen 325 Mg Tablet) 650 mg PO PACUNOW ONE Stop: 07/29/21 17:56 Piperacillin Sod/Tazobactam (Sod 4.5 gm/ Sodium Chloride) 100 mls @ 200 mls/hr IV NOW ONE Stop: 07/29/21 08:35 Last Infusion: 07/29/21 11:03 Dose: 0 mls/hr Documented by: Admin: 07/29/21 09:31 Dose: 200 mls/hr Documented by: [email or web address] Clindamycin Phosphate (Cleocin) 900 mg in 50 mls @ 50 mls/hr IV NOW ONE Stop: 07/29/21 09:36 Last Infusion: 07/29/21 10:45 Dose: 0 mls/hr Documented by: Admin: 07/29/21 09:40 Dose: 50 mls/hr Documented by: [email or web address] Sodium Chloride (Normal Saline 0.9%) 1,000 mls @ 1,000 mls/hr IV BOLUS ONE Stop: 07/29/21 09:37 Last Infusion: 07/29/21 10:45 Dose: 0 mls/hr Documented by: Admin: 07/29/21 09:27 Dose: 1,000 mls/hr Documented by: [email or web address] Vancomycin HCl/Dextrose (Vancomycin) 2,000 mg in 400 mls @ 200 mls/hr IV NOW ONE Stop: 07/29/21 10:47 Last Infusion: 07/29/21 13:16 Dose: 0 mls/hr Documented by: Admin: 07/29/21 11:04 Dose: 200 mls/hr Documented by: [email or web address] Lidocaine/Epinephrine (Lidocaine 1% W/Epi) 20 ml INJ NOW ONE Stop: 07/29/21 18:10 Last Admin: 07/29/21 18:10 Dose: 16 ml Documented by: PETER Vancomycin HCl (Vancomycin Per Pharmacy) 1 request MISC NOW ONE Stop: 07/29/21 13:12 Reevaluation(s) Reevaluation #1: Updated patient. He is agreeable to stay. He is NPO since yesterday. He is aware he is not to eat or drink anything else. He is agreeable to staying although understandably disappointed. He is open to surgery if needed. He asked that we call his to update her which I did. is also going to call back with an updated medication list because she is unsure if he is on a blood thinner and she states there has been some confusion. She has his medications at home available. Time: 10:43 Consultations Consultation #1: Dr. Kat, general surgeon. Happy to see patient will try to evaluate soon by and if appears needs to go to the OR will take it otherwise we will ask for Medicine to admit with consultation from General surgery. Reviewed patient's findings no gas, no crepitus, patient does have a wound that appears to have been draining and there is no obvious abscess but quite a bit of stranding cellulitic changes with cellulitis tracking up towards the abdomen. Time: 09:32 Consultation #2: Dr. Hayden, hospitalist accepts for observation. Agrees with current plan. Will maintain NPO status until cleared by surgery. Vital Signs Vital signs: Vital Signs - 8 hr 07/29/21 07:45 07/29/21 07:47 07/29/21 08:00 Temperature 97.3 F L Pulse Rate 79 74 70 Respiratory Rate 18 Blood Pressure 139/67 139/67 120/62 Pulse Oximetry 97 99 98 07/29/21 08:30 07/29/21 08:32 07/29/21 09:00 Temperature Pulse Rate 69 71 67 Respiratory Rate 18 Blood Pressure 113/59 L Pulse Oximetry 97 99 98 07/29/21 09:30 Temperature Pulse Rate 64 Respiratory Rate 18 Blood Pressure Pulse Oximetry 97 MDM - Skin/Abscess/Foreign Bdy Lab Data Result diagrams: 07/29/21 08:29 07/29/21 08:29 Labs: Lab Results 07/29/21 07/29/21 07/29/21 Range/Units 08:29 08:29 08:29 WBC 6.5 (4.5-11.0) X10^3/uL RBC 3.49 L (4.5-5.9) X10^6/uL Hgb 9.7 L (13.5-17.5) g/dL Hct 28.7 L (41-53) % MCV 82.3 (80-100) fL MCH 27.8 (26-34) PG MCHC 33.8 (30-36) % RDW 17.7 H (11.6-14.8) % Plt Count 158 (150-400) X10^3/uL Neut % (Auto) 77.5 H (50-75) % Lymph % (Auto) 11.3 L (25-40) % Medina % (Auto) 7.7 (3-14) % Eos % (Auto) 3.1 (2-4) % Baso % (Auto) 0.4 (0-2) % Neut # (Auto) 5000 (7451-0724) /uL Lymph # (Auto) 700 L (9308-4391) /uL Medina # (Auto) 500 (0-900) /uL Eos # (Auto) 200 (0-450) /uL Baso # (Auto) 0 (0-100) /uL PT (10.1-12.7) SECONDS INR (0.9-1.3) APTT (26.4-36.2) SECONDS Sodium 137 (137-145) mmol/L Potassium 3.9 (3.4-5.1) mmol/L Chloride 104 (98-107) mmol/L Carbon Dioxide 28 (22-32) mmol/L BUN 15 (9-20) mg/dL Creatinine 0.92 (0.66-1.25) mg/dL Estimated GFR > 60 (>60) mL/min BUN/Creatinine Ratio 16.3 (6-22) Glucose 131 H (80-110) mg/dL Lactate 1.0 (0.7-2.1) mmol/L Calcium 8.3 L (8.4-10.2) mg/dL Total Bilirubin 0.5 (0.2-1.3) mg/dL AST 58 (17-59) IU/L ALT 54 H (<50) IU/L Alkaline Phosphatase 58 (38-126) U/L Total Protein 6.3 (6.3-8.2) g/dL Albumin 3.5 (3.5-5.0) g/dL Globulin 2.8 (1.7-4.1) g/dL Albumin/Globulin Ratio 1.3 (1.0-2.8) Procalcitonin 0.13 (<0.5) ng/mL SARS-CoV-2 (PCR) (Negative) 07/29/21 07/29/21 07/29/21 Range/Units 08:29 08:35 08:45 WBC (4.5-11.0) X10^3/uL RBC (4.5-5.9) X10^6/uL Hgb (13.5-17.5) g/dL Hct (41-53) % MCV (80-100) fL MCH (26-34) PG MCHC (30-36) % RDW (11.6-14.8) % Plt Count (150-400) X10^3/uL Neut % (Auto) (50-75) % Lymph % (Auto) (25-40) % Medina % (Auto) (3-14) % Eos % (Auto) (2-4) % Baso % (Auto) (0-2) % Neut # (Auto) (4739-0749) /uL Lymph # (Auto) (1984-0278) /uL Medina # (Auto) (0-900) /uL Eos # (Auto) (0-450) /uL Baso # (Auto) (0-100) /uL PT 13.8 H (10.1-12.7) SECONDS INR 1.2 (0.9-1.3) APTT 29 (26.4-36.2) SECONDS Sodium (137-145) mmol/L Potassium (3.4-5.1) mmol/L Chloride (98-107) mmol/L Carbon Dioxide (22-32) mmol/L BUN (9-20) mg/dL Creatinine (0.66-1.25) mg/dL Estimated GFR (>60) mL/min BUN/Creatinine Ratio (6-22) Glucose (80-110) mg/dL Lactate (0.7-2.1) mmol/L Calcium (8.4-10.2) mg/dL Total Bilirubin (0.2-1.3) mg/dL AST (17-59) IU/L ALT (<50) IU/L Alkaline Phosphatase (38-126) U/L Total Protein (6.3-8.2) g/dL Albumin (3.5-5.0) g/dL Globulin (1.7-4.1) g/dL Albumin/Globulin Ratio (1.0-2.8) Procalcitonin (<0.5) ng/mL SARS-CoV-2 (PCR) Negative (Negative) Imaging Data CT scan - abdomen/pelvis: Radiologist's Impression: [address] [address] [address] Scan Report Signed Patient: Onesimo Oakley MR#: [id number] : 1940 Acct:[id number] Age/Sex: 80 / M Date of Service: 07/29/21 Loc: ED Accession Number: [id number] ?? Procedure: CT abdomen pelvis w con Ordering Provider: Sandra Sainz D.O. PROCEDURE:? CT ABDOMEN PELVIS W CON ? INDICATIONS:? abscess R perineum/groin w/ cellulitis test/abd, r/o gas ? TECHNIQUE:? After the administration of IV contrast, axial sections were acquired from the lung bases to the pubic symphysis.? Coronal and sagittal reformats were performed.? For radiation dose reduction, the following was used:? automated exposure control, adjustment of mA and/or kV according to patient size. ? COMPARISON:? [facility], CT, CT ANGIO CHEST ABDOMEN PELVIS, 07/22/2017, 15:40. ?[facility], CT, CT ABDOMEN PELVIS W CON, 05/23/2019, 11:32. ? FINDINGS:? Image quality:? Excellent.? ? Lung bases:? Unremarkable.? ? Heart:? No significant findings.? Advanced coronary artery calcification seen.? ? ? ABDOMEN: Liver:? Unremarkable.? ? Gallbladder:? Removed.? ? Biliary ducts:? Not enlarged.? Biliary gas can be seen. Pancreas:? Unremarkable.? ? Spleen:? Unremarkable.? ? Incidental note is made of an accessory splenule along the hilum of the primary spleen. Adrenal Glands:? Unremarkable.? ? Kidneys and Ureters:? Unremarkable.? ? ? Stomach and Bowel:? Stomach, small bowel loops, and colon are unremarkable.? Appendectomy clips are seen. Peritoneum:? No abnormal intraperitoneal fluid.? No free air.? ? Ventral Wall:? There is a small fat containing periumbilical hernia. Abdominal Nodes:? No retroperitoneal or mesenteric adenopathy by size criteria.? Vessels:? The IVC demonstrates normal size.? 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 Atherosclerotic calcification is noted.? ? PELVIS: Pelvic Organs:? Unremarkable.? ? Bladder:? Unremarkable.? ? Pelvic Nodes: No enlarged lymph nodes.? Miscellaneous:? Bilateral fat containing inguinal hernias are seen. ? In this patient with this given history, scrutiny is given to area right perineum infection.? Generalized inflammatory change can be seen, including involving the right scrotum, without a loculated fluid collection to suggest abscess.? No soft tissue gas is seen. ? Bones:? Focal L5-S1 degenerative change is seen.? Milder degenerative changes are seen elsewhere.? ? ? IMPRESSION:? ? Cellulitis of the right perineum, without soft tissue gas.? No drainable abscess is seen. ? Incidental note is made of: Advanced coronary artery calcification Cholecystectomy Small fat containing periumbilical hernia. 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 ? Dictated by: Elian Hunter M.D. on 07/29/2021 at 8:10 ? ? Approved by: Elian Hunter M.D. on 07/29/2021 at 8:14?? [facility] Narrative Medical decision making narrative: This is a 80-year-old male who comes to the emergency department with complaint of small wound the perineal area that has been draining for 2 days and has been present for about a week with redness tracking over the testicles and abdomen. Patient does not appear septic at this time he does not have any subcutaneous emphysema crepitus or necrotic changes but does have a small wound that is open not able to drain additional material with palpation at the moment. No obvious drainable abscess on CT imaging but does have stranding cellulitic changes but no gas or air noted. Patient is not a known diabetic but does have coronary artery disease. 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 We discussed urology is not available here today. Ask for admission to hospitalist discussed with hospitalist patient has been covered with candy Murillo and torres. Dr. Hayden, accepts for admission. Discharge Plan Departure Patient Disposition: Admitted as Observation Clinical Impression: Abscess of perineum, Cellulitis Admit Date/Time: 07/29/21 10:53 Admit Provider: Armando Hayden
--- NOTE | 2021-07-29 08:37 | DI.CT.S_ITS ---
PROCEDURE: CT ABDOMEN PELVIS W CON INDICATIONS: abscess R perineum/groin w/ cellulitis test/abd, r/o gas TECHNIQUE: After the administration of IV contrast, axial sections were acquired from the lung bases to the pubic symphysis. Coronal and sagittal reformats were performed. For radiation dose reduction, the following was used: automated exposure control, adjustment of mA and/or kV according to patient size. COMPARISON: [facility], CT, CT ANGIO CHEST ABDOMEN PELVIS, 07/22/2017, 15:40. [facility], CT, CT ABDOMEN PELVIS W CON, 05/23/2019, 11:32. FINDINGS: Image quality: Excellent. Lung bases: Unremarkable. Heart: No significant findings. Advanced coronary artery calcification seen. ABDOMEN: Liver: Unremarkable. Gallbladder: Removed. Biliary ducts: Not enlarged. Biliary gas can be seen. Pancreas: Unremarkable. Spleen: Unremarkable. Incidental note is made of an accessory splenule along the hilum of the primary spleen. Adrenal Glands: Unremarkable. Kidneys and Ureters: Unremarkable. Stomach and Bowel: Stomach, small bowel loops, and colon are unremarkable. Appendectomy clips are seen. Peritoneum: No abnormal intraperitoneal fluid. No free air. Ventral Wall: There is a small fat containing periumbilical hernia. Abdominal Nodes: No retroperitoneal or mesenteric adenopathy by size criteria. Vessels: The IVC demonstrates normal size. Distal abdominal aortic ectasia is seen, 2 8 cm AP. Atherosclerotic calcification is noted. PELVIS: Pelvic Organs: Unremarkable. Bladder: Unremarkable. Pelvic Nodes: No enlarged lymph nodes. Miscellaneous: Bilateral fat containing inguinal hernias are seen. In this patient with this given history, scrutiny is given to area right perineum infection. Generalized inflammatory change can be seen, including involving the right scrotum, without a loculated fluid collection to suggest abscess. No soft tissue gas is seen. Bones: Focal L5-S1 degenerative change is seen. Milder degenerative changes are seen elsewhere. IMPRESSION: Cellulitis of the right perineum, without soft tissue gas. No drainable abscess is seen. Incidental note is made of: Advanced coronary artery calcification Cholecystectomy Small fat containing periumbilical hernia. Distal abdominal aortic ectasia, 2.8 cm AP Appendectomy Focal L5-S1 degenerative change Bilateral fat containing inguinal hernias Dictated by: Elian Hunter M.D. on 07/29/2021 at 8:10 Approved by: Elian Hunter M.D. on 07/29/2021 at 8:14
[2021-07-29 08:44] LABS: Add Manual Diff / Slide Review NO; Basophils Absolute Auto 0 /uL (0-100); Basophils Percent Auto 0.4 % (0-2); Eosinophils Absolute Auto 200 /uL (0-450); Eosinophils Percent Auto 3.1 % (2-4); Hematocrit 28.7 % (41-53); Hemoglobin 9.7 g/dL (13.5-17.5); Lymphocytes Absolute Auto 700 /uL (1100-4500); Lymphocytes Percent Auto 11.3 % (25-40); Mean Corpuscular HGB Conc 33.8 % (30-36); Mean Corpuscular Hemoglobin 27.8 PG (26-34); Mean Corpuscular Volume 82.3 fL (80-100); Monocytes Absolute Auto 500 /uL (0-900); Monocytes Percent Auto 7.7 % (3-14); Neutrophils Absolute Auto 5000 /uL (1500-7000); Neutrophils Percent Auto 77.5 % (50-75); Platelet Count 158 X10^3/uL (150-400); Red Blood Cell Count 3.49 X10^6/uL (4.5-5.9); Red Cell Distribution Width 17.7 % (11.6-14.8); White Blood Cell Count 6.5 X10^3/uL (4.5-11.0)
[2021-07-29 08:48] LABS: INR 1.2 (0.9-1.3); Prothrombin Time 13.8 SECONDS (10.1-12.7)
[2021-07-29 08:53] LABS: Alanine Aminotransferase 54 IU/L (<50); Albumin 3.5 g/dL (3.5-5.0); Albumin Globulin Ratio 1.3 (1.0-2.8); Alkaline Phosphatase 58 U/L (38-126); Aspartate Aminotransferase 58 IU/L (17-59); BUN Creatinine Ratio 16.3 (6-22); Bilirubin Total 0.5 mg/dL (0.2-1.3); Blood Urea Nitrogen 15 mg/dL (9-20); Calcium 8.3 mg/dL (8.4-10.2); Carbon Dioxide 28 mmol/L (22-32); Chloride 104 mmol/L (98-107); Estimated Glomerular Filt Rate > 60 mL/min (>60); Globulin 2.8 g/dL (1.7-4.1); Glucose 131 mg/dL (80-110); HEMOLYSIS < 15 (0-50); Potassium 3.9 mmol/L (3.4-5.1); Sodium 137 mmol/L (137-145); Total Protein 6.3 g/dL (6.3-8.2)
[2021-07-29 08:55] LABS: PTT Partial Thromboplastin Tim 29 SECONDS (26.4-36.2)
[2021-07-29 09:02] LABS: COVID19 -Nasal RAPID Negative (Negative)
[2021-07-29 09:09] LABS: Procalcitonin 0.13 ng/mL (<0.5)
[2021-07-29] MEDS: SODIUM CHLORIDE 0.9% 1,000 ML 1000 ML IV (09:27)
[2021-07-29] MEDS: PIPERACILLIN/TAZO 4.5 GM in SODIUM CHLORIDE 0.9% 100 ML 200 ML IV (09:31)
[2021-07-29] MEDS: CLINDAMYCIN 900 MG/50 ML PIGGYBACK 50 MG IV (09:40)
[2021-07-29] MEDS: VANCOMYCIN 2,000 MG/400 ML PIGGYBACK 200 MG IV (11:04)
--- NOTE | 2021-07-29 11:44 | PC.NURSE ---
Nehal Oakley () [phone] call her with updates she doesnt drive
[2021-07-29 12:58] LABS: Appearance Urine UA CLEAR; Bilirubin Urine UA NEGATIVE (NEGATIVE); Color Urine UA YELLOW; Glucose Urine UA NEGATIVE (Negative); Ketones Urine UA NEGATIVE (NEGATIVE); Leukocyte Esterase Urine UA NEGATIVE (NEGATIVE); Nitrite Urine UA NEGATIVE (Negative); Occult Blood Urine UA TRACE-LYSED (Negative); Protein Urine UA NEGATIVE (Negative); Specific Gravity Urine UA <=1.005 (1.000-1.035); Urobilinogen Urine UA 0.2 E.U./dL (0.2)
[2021-07-29 13:04] LABS: Bacteria Urine None Seen; RBC Urine None Seen (0-5/HPF); WBC Urine None Seen (0-5/HPF)
[2021-07-29 13:05] LABS: Culture Indicated Urine Cult Not Indicated; Urine Comments Microscopic Normal
[2021-07-29] MEDS: SODIUM CHLORIDE 0.9% 1,000 ML 100 ML IV (15:26)
--- NOTE | 2021-07-29 16:02 | PM.HP.1 ---
History of Present Illness History of Present Illness Date Patient Seen: 07/29/21 Time Patient Seen: 16:02 Chief complaint: absess drainage around groin area Narrative: Onesimo Oakley is a 80 year old male with a history of BPH with urinary retention, CAD, with aortic stenosis, hyperlipidemia, hypertension, and obesity, and recent admission here for septic arthritis now completed with treatment and recent traumatic SDH requiring evacuation at [facility] who presents with groin swelling which he has noticed for approximately the past week or so, though he is not quite sure. He first noticed something while at [facility], which was initially noted by the nursing staff there. He is not sure of any additional management other than local interventions at this time but states for the past few days he has had worsening swelling and pain. He denies fever, chills, nausea, vomiting, abdominal pain. Patient History Medical History BPH (benign prostatic hyperplasia) Chronic insomnia Coronary artery disease Hyperlipidemia Hypertension Lumbar degenerative disc disease Moderate aortic stenosis by prior echocardiogram Restless leg syndrome Urinary incontinence Surgical History Hx of appendectomy (~2018) S/P TURP (~2017) Family & Social History Family History (Updated 07/29/21 @ 22:32 by Armando Hayden DO) Mother No pertinent past medical history Father No pertinent past medical history Social History: household members spouse Safety & Behavioral: Feels Safe in Current Yes Environment Been Physically Hurt or No Threatened By a Person Tobacco & Substance use: Tobacco type cigarettes Smoking Status Former smoker alcohol intake former alcohol intake frequency holiday/special occasion Substance Use Type does not use Meds Home Medications and Allergies Home Medications Medication Instructions Recorded Confirmed Type metoprolol succinate 100 mg 50 mg PO DAILY 04/25/18 07/29/21 History tablet,extended release 24 hr rosuvastatin 5 mg tablet 20 mg PO DAILY 05/23/19 07/29/21 History trospium 20 mg tablet 20 mg PO BEDTIME 05/23/19 07/29/21 History amlodipine 5 mg tablet 10 mg PO DAILY 06/02/21 07/29/21 History aspirin 81 mg capsule 81 mg PO DAILY 07/29/21 07/29/21 History isosorbide mononitrate 60 mg 60 mg PO DAILY 07/29/21 07/29/21 History tablet,extended release 24 hr Allergies Allergy/AdvReac Type Severity Reaction Status Date / Time minocycline Allergy Unknown Verified 07/29/21 07:52 atorvastatin AdvReac Intermediate Fatigued Verified 06/02/21 12:21 Review of Systems Review of Systems Narrative: All other systems reviewed with the patient and are negative unless otherwise stated. Exam Vital Signs (past 8 hours): - 07/29/21 08:30 07/29/21 08:32 07/29/21 09:00 Pulse Rate 69 71 67 Respiratory Rate 18 Blood Pressure 113/59 L Pulse Oximetry 97 99 98 07/29/21 09:30 07/29/21 09:53 07/29/21 10:00 Pulse Rate 64 64 62 Respiratory Rate 18 20 18 Blood Pressure 115/56 L 113/59 L Pulse Oximetry 97 98 98 07/29/21 10:30 07/29/21 11:00 07/29/21 11:30 Pulse Rate 64 63 62 Respiratory Rate 22 20 18 Blood Pressure 117/63 116/65 111/62 Pulse Oximetry 98 98 97 07/29/21 12:00 07/29/21 12:30 07/29/21 13:00 Pulse Rate 63 58 L 63 Respiratory Rate 18 15 22 Blood Pressure 115/64 119/60 116/65 Pulse Oximetry 98 97 99 07/29/21 14:11 Pulse Rate Respiratory Rate Blood Pressure Pulse Oximetry 100 Oxygen Delivery Method Room Air Oxygen Flow Rate 0 Narrative Exam Narrative: General:? Patient is well developed and well nourished, in no distress at this time. HEENT:? Normocephalic, atraumatic, extraocular muscles intact, oral pharynx is clear and mucous membranes are moist. Neck: supple and symmetric, trachea is midline, no cervical adenopathy. Negative for JVD Chest:? Normal AP diameter and contour without kyphoscoliosis, no tachypnea, equal chest rise bilaterally. Lungs:? CTA b/l no wheezing rhonchi or rales. Cardio:?RRR no m/r/g. Abdomen: S NT ND. : mild testicular tenderness on the right, with mild scrotal cellulitis and small mildly draining lesion near a hair follicle in the right perineum Musculoskeletal:? Muscle strength and tone are equal within normal limits, no deformity. Extremities: No edema or joint effusions. No cyanosis or clubbing. Skin:? Pale,? Warm to touch,dry and intact without rashes, ulcerations or petechiae.? Neuro:? Alert and orientated x3,? sensation to touch intact in all extremities, no gross deficits noted of cranial nerves. Psych:? Patient has a well-kept appearance, appropriate affect, mental status attitude thought context and judgment are appropriate for age. Objective Labs Result Diagrams: 07/29/21 08:29 07/29/21 08:29 Labs: Laboratory Results - last 24 hr 07/29/21 07/29/21 07/29/21 08:29 08:29 08:29 WBC 6.5 RBC 3.49 L Hgb 9.7 L Hct 28.7 L MCV 82.3 MCH 27.8 MCHC 33.8 RDW 17.7 H Plt Count 158 Neut % (Auto) 77.5 H Lymph % (Auto) 11.3 L [place] % (Auto) 7.7 Eos % (Auto) 3.1 Baso % (Auto) 0.4 Neut # (Auto) 5000 Lymph # (Auto) 700 L [place] # (Auto) 500 Eos # (Auto) 200 Baso # (Auto) 0 PT INR APTT Sodium 137 Potassium 3.9 Chloride 104 Carbon Dioxide 28 BUN 15 Creatinine 0.92 Estimated GFR > 60 BUN/Creatinine Ratio 16.3 Glucose 131 H Lactate 1.0 Calcium 8.3 L Total Bilirubin 0.5 AST 58 ALT 54 H Alkaline Phosphatase 58 Total Protein 6.3 Albumin 3.5 Globulin 2.8 Albumin/Globulin Ratio 1.3 Procalcitonin 0.13 Urine Color Urine Appearance Urine pH Ur Specific [place] Urine Protein Urine Glucose (UA) Urine Ketones Urine Occult Blood Urine Nitrate Urine Bilirubin Urine Urobilinogen Ur Leukocyte Esterase Urine RBC Urine WBC Urine Bacteria Ur Culture Indicated? Micro UA Comment SARS-CoV-2 (PCR) 07/29/21 07/29/21 07/29/21 08:29 08:35 08:45 WBC RBC Hgb Hct MCV MCH MCHC RDW Plt Count Neut % (Auto) Lymph % (Auto) [place] % (Auto) Eos % (Auto) Baso % (Auto) Neut # (Auto) Lymph # (Auto) [place] # (Auto) Eos # (Auto) Baso # (Auto) PT 13.8 H INR 1.2 APTT 29 Sodium Potassium Chloride Carbon Dioxide BUN Creatinine Estimated GFR BUN/Creatinine Ratio Glucose Lactate Calcium Total Bilirubin AST ALT Alkaline Phosphatase Total Protein Albumin Globulin Albumin/Globulin Ratio Procalcitonin Urine Color Urine Appearance Urine pH Ur Specific [place] Urine Protein Urine Glucose (UA) Urine Ketones Urine Occult Blood Urine Nitrate Urine Bilirubin Urine Urobilinogen Ur Leukocyte Esterase Urine RBC Urine WBC Urine Bacteria Ur Culture Indicated? Micro UA Comment SARS-CoV-2 (PCR) Negative 07/29/21 11:01 WBC RBC Hgb Hct MCV MCH MCHC RDW Plt Count Neut % (Auto) Lymph % (Auto) [place] % (Auto) Eos % (Auto) Baso % (Auto) Neut # (Auto) Lymph # (Auto) [place] # (Auto) Eos # (Auto) Baso # (Auto) PT INR APTT Sodium Potassium Chloride Carbon Dioxide BUN Creatinine Estimated GFR BUN/Creatinine Ratio Glucose Lactate Calcium Total Bilirubin AST ALT Alkaline Phosphatase Total Protein Albumin Globulin Albumin/Globulin Ratio Procalcitonin Urine Color Yellow Urine Appearance Clear Urine pH 5.0 Ur Specific [place] <=1.005 Urine Protein Negative Urine Glucose (UA) Negative Urine Ketones Negative Urine Occult Blood Trace-lysed Urine Nitrate Negative Urine Bilirubin Negative Urine Urobilinogen 0.2 Ur Leukocyte Esterase Negative Urine RBC None seen Urine WBC None seen Urine Bacteria None seen Ur Culture Indicated? Cult not indicated Micro UA Comment Microscopic normal SARS-CoV-2 (PCR) Assessment & Plan Assessment & Plan narrative: Onesimo Oakley is a 80 year old male with a history of BPH with urinary retention, CAD, with aortic stenosis, hyperlipidemia, hypertension, and obesity, and recent admission here for septic arthritis now completed with treatment and recent traumatic SDH requiring evacuation at [facility] who presents with groin swelling which he has noticed for approximately the past week or so. 1. R perineal cellulitis, possible abscess - no definitive abscess noted on CT. Initially described by ER provider as extensive cellulitis, now appears much improved though there is a small draining lesion in the R perineum. Will keep NPO, surgery was contacted in the ER and plans to evaluate the patient. - initially given zosyn, vanco, and clinda in the ER. - pending surgery continue ceftriaxone, vanco, and clinda given location of lesion, though very low suspicion of shane's or necrotizing skin and soft tissue infection. 2. CAD, aortic stenosis - continue home medications - use any possible fluids with caution. 3. HTN, chronic - continue home medications. 4. Recent subdural hematoma - no current symptoms. Does not appear to need PT/OT evaluations but will continue to assess. Code: Full, surrogate decision maker he states is his spouse. Dispo: admit under observation status as his stay is not expected to exceed two midnights. DVT: Hold chemical ppx at this time pending surgery consultation. I have utilized all available immediate resources to obtain, update, or review the patient's current medications. Time Spent With Patient Critical Care time: I spent a total of [] minutes of critical care time on this patient's care today; this time is exclusive of procedural time.
[2021-07-29] MEDS: CLINDAMYCIN 600 MG/50 ML PIGGYBACK 50 MG IV ×2 (16:24→23:20)
--- NOTE | 2021-07-29 16:47 | PC.NURSE ---
[id number] patient admitted to ACute care from ER, oriented to room and call light. VSS. Denies pain to right groin wound except when he moves in a certain way. Denies pain at rest. Groin area cleansed with skin foam soap and water and clean brief given to patient. Patient is NPO until evaluated by surgery per orders. IV fluids started and urinal placed within reach. Bed alarm on for safety. continue to monitor.
--- NOTE | 2021-07-29 16:59 | P.CONS_ITS ---
History of Present Illness Consult details Chief complaint: absess drainage around groin area Narrative: Onesimo Oakley is a 80-year-old man with coronary artery disease who presented for several days of draining tender abscess from the right perineum. He first noticed something going on down there about a week ago when he was [facility] and the nurses they are reporting ?salve? on the area. He then noted increased tenderness, swelling and drainage few days ago. He came to the ER today. White blood cell count is normal and a CT was performed which shows cellulitis but obvious fluid collection or soft tissue gas. He denies a history of diabetes. He has not had anything to eat all day. Meds Home Medications and Allergies Home Medications Medication Instructions Recorded Confirmed Type metoprolol succinate 100 mg 50 mg PO DAILY 04/25/18 07/29/21 History tablet,extended release 24 hr rosuvastatin 5 mg tablet 20 mg PO DAILY 05/23/19 07/29/21 History trospium 20 mg tablet 20 mg PO BEDTIME 05/23/19 07/29/21 History amlodipine 5 mg tablet 10 mg PO DAILY 06/02/21 07/29/21 History aspirin 81 mg capsule 81 mg PO DAILY 07/29/21 07/29/21 History isosorbide mononitrate 60 mg 60 mg PO DAILY 07/29/21 07/29/21 History tablet,extended release 24 hr Allergies Allergy/AdvReac Type Severity Reaction Status Date / Time minocycline Allergy Unknown Verified 07/29/21 07:52 atorvastatin AdvReac Intermediate Fatigued Verified 06/02/21 12:21 Exam Vital Signs (past 8 hours): - 07/29/21 09:00 07/29/21 09:30 07/29/21 09:53 Temperature Pulse Rate 67 64 64 Respiratory Rate 18 20 Blood Pressure 115/56 L Pulse Oximetry 98 97 98 07/29/21 10:00 07/29/21 10:30 07/29/21 11:00 Temperature Pulse Rate 62 64 63 Respiratory Rate 18 22 20 Blood Pressure 113/59 L 117/63 116/65 Pulse Oximetry 98 98 98 07/29/21 11:30 07/29/21 12:00 07/29/21 12:30 Temperature Pulse Rate 62 63 58 L Respiratory Rate 18 18 15 Blood Pressure 111/62 115/64 119/60 Pulse Oximetry 97 98 97 07/29/21 13:00 07/29/21 13:55 07/29/21 14:11 Temperature 97.6 F Pulse Rate 63 73 Respiratory Rate 22 13 Blood Pressure 116/65 125/70 Pulse Oximetry 99 100 100 Oxygen Delivery Method Room Air Oxygen Flow Rate 0 Other: There is a 2-3 cm tender, erythematous, draining wound in the right perineum just posterior to the scrotum. There is no evidence of necrosis. No crepitus. Objective Labs Result Diagrams: 07/29/21 08:29 07/29/21 08:29 Labs: Laboratory Results - last 24 hr 07/29/21 07/29/21 07/29/21 08:29 08:29 08:29 WBC 6.5 RBC 3.49 L Hgb 9.7 L Hct 28.7 L MCV 82.3 MCH 27.8 MCHC 33.8 RDW 17.7 H Plt Count 158 Neut % (Auto) 77.5 H Lymph % (Auto) 11.3 L [place] % (Auto) 7.7 Eos % (Auto) 3.1 Baso % (Auto) 0.4 Neut # (Auto) 5000 Lymph # (Auto) 700 L [place] # (Auto) 500 Eos # (Auto) 200 Baso # (Auto) 0 PT INR APTT Sodium 137 Potassium 3.9 Chloride 104 Carbon Dioxide 28 BUN 15 Creatinine 0.92 Estimated GFR > 60 BUN/Creatinine Ratio 16.3 Glucose 131 H Lactate 1.0 Calcium 8.3 L Total Bilirubin 0.5 AST 58 ALT 54 H Alkaline Phosphatase 58 Total Protein 6.3 Albumin 3.5 Globulin 2.8 Albumin/Globulin Ratio 1.3 Procalcitonin 0.13 Urine Color Urine Appearance Urine pH Ur Specific [place] Urine Protein Urine Glucose (UA) Urine Ketones Urine Occult Blood Urine Nitrate Urine Bilirubin Urine Urobilinogen Ur Leukocyte Esterase Urine RBC Urine WBC Urine Bacteria Ur Culture Indicated? Micro UA Comment SARS-CoV-2 (PCR) 07/29/21 07/29/21 07/29/21 08:29 08:35 08:45 WBC RBC Hgb Hct MCV MCH MCHC RDW Plt Count Neut % (Auto) Lymph % (Auto) [place] % (Auto) Eos % (Auto) Baso % (Auto) Neut # (Auto) Lymph # (Auto) [place] # (Auto) Eos # (Auto) Baso # (Auto) PT 13.8 H INR 1.2 APTT 29 Sodium Potassium Chloride Carbon Dioxide BUN Creatinine Estimated GFR BUN/Creatinine Ratio Glucose Lactate Calcium Total Bilirubin AST ALT Alkaline Phosphatase Total Protein Albumin Globulin Albumin/Globulin Ratio Procalcitonin Urine Color Urine Appearance Urine pH Ur Specific [place] Urine Protein Urine Glucose (UA) Urine Ketones Urine Occult Blood Urine Nitrate Urine Bilirubin Urine Urobilinogen Ur Leukocyte Esterase Urine RBC Urine WBC Urine Bacteria Ur Culture Indicated? Micro UA Comment SARS-CoV-2 (PCR) Negative 07/29/21 11:01 WBC RBC Hgb Hct MCV MCH MCHC RDW Plt Count Neut % (Auto) Lymph % (Auto) [place] % (Auto) Eos % (Auto) Baso % (Auto) Neut # (Auto) Lymph # (Auto) [place] # (Auto) Eos # (Auto) Baso # (Auto) PT INR APTT Sodium Potassium Chloride Carbon Dioxide BUN Creatinine Estimated GFR BUN/Creatinine Ratio Glucose Lactate Calcium Total Bilirubin AST ALT Alkaline Phosphatase Total Protein Albumin Globulin Albumin/Globulin Ratio Procalcitonin Urine Color Yellow Urine Appearance Clear Urine pH 5.0 Ur Specific [place] <=1.005 Urine Protein Negative Urine Glucose (UA) Negative Urine Ketones Negative Urine Occult Blood Trace-lysed Urine Nitrate Negative Urine Bilirubin Negative Urine Urobilinogen 0.2 Ur Leukocyte Esterase Negative Urine RBC None seen Urine WBC None seen Urine Bacteria None seen Ur Culture Indicated? Cult not indicated Micro UA Comment Microscopic normal SARS-CoV-2 (PCR) [facility] Medical History (Updated 07/29/21 @ 08:46 by Sandra Sainz DO) BPH (benign prostatic hyperplasia) Chronic insomnia Coronary artery disease Hyperlipidemia Hypertension Lumbar degenerative disc disease Moderate aortic stenosis by prior echocardiogram Restless leg syndrome Urinary incontinence Surgical History Hx of appendectomy (~2018) S/P TURP (~2017) Social History household members: spouse Tobacco & Substance Use Smoking Status: Former smoker alcohol intake: former Assessment & Plan Assessment and plan (1) Abscess of perineum: Status: Acute Plan I believe this is simple abscess of the perineal skin. There is no evidence of necrotizing soft tissue infection. Recommend incision and drainage in the operating room and high lithotomy position. Will leave the wound widely open and packed with Kerlix which can be removed at a later time. Time Spent With Patient Critical Care time: I spent a total of [] minutes of critical care time on this patient's care today; this time is exclusive of procedural time.
--- NOTE | 2021-07-29 17:15 | PC.NURSE ---
Patient picked up for procedure. His Nehal was updated over the phone.
--- NOTE | 2021-07-29 17:36 | SUR.OPER ---
Lithotomy on padded OR bed, head on pillow, arms secured on padded arm boards at <90 degrees abduction. Legs secured in padded yellow fins stirrups.
--- NOTE | 2021-07-29 18:07 | P.OP_ITS ---
Operative Date/Time/Diagnoses Date of procedure: 07/29/21 Time of procedure: 18:07 Pre-op diagnosis: Perineal abscess Procedure & Clinicians Procedure: Incision and drainage of perineal abscess Same procedure as scheduled: Yes Surgeon: Jacinto Kat Anesthesia Type: General Operative Notes Findings: Perineal abscess tracking along the right base of scrotum Procedure in detail: The patient was already on antibiotics. The patient was brought to the operating room, placed on the table in the supine position and general anesthesia was induced LMA. The legs were placed in high lithotomy position. The perineum and scrotum were prepped and draped in the usual fashion. A time- out was performed. Lidocaine was injected into the skin and subcutaneous tissue around the open wound. Next, a scalpel was used to increase the opening of the wound in the right anterior perineum. Culture swabs were taken from the deepest portion of the wound. Next a combination of the Yankauer sucker tip and a finger were used to bluntly break up any internal loculations. The abscess cavity seems to track anteriorly along the base of the scrotum. Few bleeders were cauterized within the wound. Additional local was injected the tissue around the wound. Finally, the wound was packed with 2 inch Kerlix gauze and additional fluffs were placed on the outside of packing. The patient was awakened brought to recovery room. EBL 15 mL. Post-operative Disposition: PACU
[2021-07-29] MEDS: LIDOCAINE 1% W/EPI 20 ML INJ (18:10)
[2021-07-29] MEDS: LACTATED RINGERS 1,000 ML 42 ML IV (18:20)
[2021-07-29] MEDS: ACETAMINOPHEN 325 MG TABLET 975 MG PO (21:39)
[2021-07-29] MEDS: cefTRIAXone 1,000 MG in SODIUM CHLORIDE 0.9% 100 ML 200 ML IV (21:40)
[2021-07-30] VITALS (7 sets, daily range): BP systolic 115–133; BP diastolic 54–69; PULSE 67–70; RESP 17–18; TEMP 36.4–36.5; O2SAT 95–97
[2021-07-30] MEDS: VANCOMYCIN 1,250 MG/250 ML PIGGYBACK 250 MG IV (00:24)
[2021-07-30] MEDS: CLINDAMYCIN 600 MG/50 ML PIGGYBACK 50 MG IV ×2 (04:36→09:21)
[2021-07-30 06:01] LABS: Add Manual Diff / Slide Review NO; Basophils Absolute Auto 0 /uL (0-100); Basophils Percent Auto 0.4 % (0-2); Eosinophils Absolute Auto 300 /uL (0-450); Eosinophils Percent Auto 5.4 % (2-4); Hematocrit 28.3 % (41-53); Hemoglobin 9.4 g/dL (13.5-17.5); Lymphocytes Absolute Auto 1000 /uL (1100-4500); Lymphocytes Percent Auto 16.3 % (25-40); Mean Corpuscular HGB Conc 33.3 % (30-36); Mean Corpuscular Hemoglobin 27.6 PG (26-34); Mean Corpuscular Volume 82.9 fL (80-100); Monocytes Absolute Auto 500 /uL (0-900); Monocytes Percent Auto 8.3 % (3-14); Neutrophils Absolute Auto 4100 /uL (1500-7000); Neutrophils Percent Auto 69.6 % (50-75); Platelet Count 159 X10^3/uL (150-400); Red Blood Cell Count 3.41 X10^6/uL (4.5-5.9); Red Cell Distribution Width 17.4 % (11.6-14.8); White Blood Cell Count 5.9 X10^3/uL (4.5-11.0)
[2021-07-30 06:25] LABS: BUN Creatinine Ratio 11.3 (6-22); Blood Urea Nitrogen 9 mg/dL (9-20); Calcium 7.9 mg/dL (8.4-10.2); Carbon Dioxide 22 mmol/L (22-32); Chloride 107 mmol/L (98-107); Estimated Glomerular Filt Rate > 60 mL/min (>60); Glucose 108 mg/dL (80-110); HEMOLYSIS < 15 (0-50); Magnesium 2.2 mg/dL (1.6-2.3); Potassium 4.2 mmol/L (3.4-5.1); Sodium 136 mmol/L (137-145)
[2021-07-30] MEDS: SODIUM CHLORIDE 0.9% 1,000 ML 100 ML IV (07:39)
[2021-07-30] MEDS: ASPIRIN 81 MG CHEW TAB PO (09:21)
[2021-07-30] MEDS: ISOSORBIDE MONONITRATE ER 30 MG TABLET 60 MG PO (09:21)
--- NOTE | 2021-07-30 09:37 | PM.DS.1 ---
History of Present Illness History of Present Illness Date Patient Seen: 07/30/21 Time Patient Seen: 09:37 Chief complaint: absess drainage around groin area Narrative: Onesimo Oakley is a 80 year old male with a history of BPH with urinary retention, CAD, with aortic stenosis, hyperlipidemia, hypertension, and obesity, and recent admission here for septic arthritis now completed with treatment and recent traumatic SDH requiring evacuation at [facility] who presents with groin swelling which he has noticed for approximately the past week or so, though he is not quite sure. He first noticed something while at [facility], which was initially noted by the nursing staff there. He is not sure of any additional management other than local interventions at this time but states for the past few days he has had worsening swelling and pain. He denies fever, chills, nausea, vomiting, abdominal pain. Discharge Providers Provider Date of admission: 07/29/21 10:53 Discharge Date: 07/30/21 Primary care physician: Taz Duffy MD Discharge provider: Armando Hayden DO Summary Hospital Course Discharge Diagnosis: 1. R perineal cellulitis, possible abscess 2. CAD, aortic stenosis 3. HTN, chronic 4. Recent subdural hematoma Hospital Course: Onesimo Oakley is a 80 year old male with a history of BPH with urinary retention, CAD, with aortic stenosis, hyperlipidemia, hypertension, and obesity, and recent admission here for septic arthritis now completed with treatment and recent traumatic SDH requiring evacuation at [facility] who presents with groin swelling which he has noticed for approximately the past week or so. He was found to have a small perineal abscess and was taken to the operating room with General surgery for an incision and drainage. Wound cultures were growing Gram-positive cocci, and the patient was discharged on oral Bactrim for a purulence skin and soft tissue infection given his allergy to tetracycline antibiotics. The patient improved more quickly than expected and was discharged home the the morning after surgery as his symptoms had markedly improved. He should follow up with General surgery as an outpatient, no other changes were made to his home medications. Time Spent with Patient Time spent: Greater than 30 minutes Exam Vital Signs (past 8 hours): - 07/30/21 02:00 07/30/21 05:53 07/30/21 06:00 Temperature 97.6 F Pulse Rate 67 Respiratory Rate 17 Blood Pressure 133/69 Pulse Oximetry 97 96 97 07/30/21 07:00 07/30/21 07:50 Temperature 97.7 F Pulse Rate 67 Respiratory Rate 18 Blood Pressure 120/65 Pulse Oximetry 97 95 Oxygen Delivery Method Room Air Oxygen Flow Rate 0 Narrative Exam Narrative: General:? Patient is well developed and well nourished, in no distress at this time. HEENT:? Normocephalic, atraumatic, extraocular muscles intact, oral pharynx is clear and mucous membranes are moist. Neck: supple and symmetric, trachea is midline, no cervical adenopathy. Negative for JVD Chest:? Normal AP diameter and contour without kyphoscoliosis, no tachypnea, equal chest rise bilaterally. Lungs:? CTA b/l no wheezing rhonchi or rales. Cardio:?RRR no m/r/g. Abdomen: S NT ND. : lesion without surrounding erythema in R perineum. packing gauze in place with sanguinous drainage. Musculoskeletal:? Muscle strength and tone are equal within normal limits, no deformity. Extremities: No edema or joint effusions. No cyanosis or clubbing. Skin:? Pale,? Warm to touch,dry and intact without rashes, ulcerations or petechiae.? Neuro:? Alert and orientated x3,? sensation to touch intact in all extremities, no gross deficits noted of cranial nerves. Psych:? Patient has a well-kept appearance, appropriate affect, mental status attitude thought context and judgment are appropriate for age. Objective Labs Result Diagrams: 07/30/21 05:30 07/30/21 05:30 Labs: Laboratory Results - last 24 hr 07/29/21 07/30/21 07/30/21 11:01 05:30 05:30 WBC 5.9 RBC 3.41 L Hgb 9.4 L Hct 28.3 L MCV 82.9 MCH 27.6 MCHC 33.3 RDW 17.4 H Plt Count 159 Neut % (Auto) 69.6 Lymph % (Auto) 16.3 L [place] % (Auto) 8.3 Eos % (Auto) 5.4 H Baso % (Auto) 0.4 Neut # (Auto) 4100 Lymph # (Auto) 1000 L [place] # (Auto) 500 Eos # (Auto) 300 Baso # (Auto) 0 Sodium 136 L Potassium 4.2 Chloride 107 Carbon Dioxide 22 BUN 9 Creatinine 0.80 Estimated GFR > 60 BUN/Creatinine Ratio 11.3 Glucose 108 Calcium 7.9 L Magnesium 2.2 Urine Color Yellow Urine Appearance Clear Urine pH 5.0 Ur Specific [place] <=1.005 Urine Protein Negative Urine Glucose (UA) Negative Urine Ketones Negative Urine Occult Blood Trace-lysed Urine Nitrate Negative Urine Bilirubin Negative Urine Urobilinogen 0.2 Ur Leukocyte Esterase Negative Urine RBC None seen Urine WBC None seen Urine Bacteria None seen Ur Culture Indicated? Cult not indicated Micro UA Comment Microscopic normal PFSH Medical History BPH (benign prostatic hyperplasia) Chronic insomnia Coronary artery disease Hyperlipidemia Hypertension Lumbar degenerative disc disease Moderate aortic stenosis by prior echocardiogram Restless leg syndrome Urinary incontinence Surgical History Hx of appendectomy (~2017) S/P TURP (~2017) Family History (Updated 07/29/21 @ 22:32 by Armando Hayden DO) Mother No pertinent past medical history Father No pertinent past medical history Social History household members: spouse Smoking Status: Former smoker alcohol intake: former Discharge Plan Discharge Plan Patient Disposition: Home Provider Discharge Comment: You were admitted to the hospital with a small collection near year groin, this improved with surgical drainage and antibiotics. Discharge orders & Medications Prescriptions: New sulfamethoxazole-trimethoprim 800-160 mg tablet 1 tab PO BID 5 Days Qty: 10 0RF Continued metoprolol succinate 100 mg tablet extended release 24 hr 50 mg PO DAILY 0RF rosuvastatin 5 mg Tablet 20 mg PO DAILY 0RF trospium 20 mg tablet 20 mg PO BEDTIME 0RF amlodipine 5 mg tablet 10 mg PO DAILY 0RF isosorbide mononitrate 60 mg Tablet Extended Release 24 Hr 60 mg PO DAILY 0RF aspirin 81 mg Capsule 81 mg PO DAILY 0RF Follow up/Referrals: Jacinto Kat MD [Physician] - Taz Duffy MD [Primary Care Provider] - Diet/Activity/Treatments Diet: Diet as Tolerated Activity: As tolerated Visit Report/Discharge Packet Instructions: DI for Incision and Drainage, [facility]: Wound Care Discharge Data Primary Care Provider: Taz Duffy V Attending Provider: Armando Hayden
--- NOTE | 2021-07-30 09:53 | PM.PN.1 ---
Subjective Subjective Date Patient Seen: 07/30/21 Time Patient Seen: 09:54 Interval history: Feeling well this morning. Exam Vital Signs (past 8 hours): - 07/30/21 02:00 07/30/21 05:53 07/30/21 06:00 Temperature 97.6 F Pulse Rate 67 Respiratory Rate 17 Blood Pressure 133/69 Pulse Oximetry 97 96 97 07/30/21 07:00 07/30/21 07:50 Temperature 97.7 F Pulse Rate 67 Respiratory Rate 18 Blood Pressure 120/65 Pulse Oximetry 97 95 Oxygen Delivery Method Room Air Oxygen Flow Rate 0 Narrative Exam Narrative: Packing removed and new dry gauze applied. Decreased erythema in the area around the wound Objective Labs Result Diagrams: 07/30/21 05:30 07/30/21 05:30 Labs: Laboratory Results - last 24 hr 07/29/21 07/30/21 07/30/21 11:01 05:30 05:30 WBC 5.9 RBC 3.41 L Hgb 9.4 L Hct 28.3 L MCV 82.9 MCH 27.6 MCHC 33.3 RDW 17.4 H Plt Count 159 Neut % (Auto) 69.6 Lymph % (Auto) 16.3 L [place] % (Auto) 8.3 Eos % (Auto) 5.4 H Baso % (Auto) 0.4 Neut # (Auto) 4100 Lymph # (Auto) 1000 L [place] # (Auto) 500 Eos # (Auto) 300 Baso # (Auto) 0 Sodium 136 L Potassium 4.2 Chloride 107 Carbon Dioxide 22 BUN 9 Creatinine 0.80 Estimated GFR > 60 BUN/Creatinine Ratio 11.3 Glucose 108 Calcium 7.9 L Magnesium 2.2 Urine Color Yellow Urine Appearance Clear Urine pH 5.0 Ur Specific [place] <=1.005 Urine Protein Negative Urine Glucose (UA) Negative Urine Ketones Negative Urine Occult Blood Trace-lysed Urine Nitrate Negative Urine Bilirubin Negative Urine Urobilinogen 0.2 Ur Leukocyte Esterase Negative Urine RBC None seen Urine WBC None seen Urine Bacteria None seen Ur Culture Indicated? Cult not indicated Micro UA Comment Microscopic normal PFSH Medical History BPH (benign prostatic hyperplasia) Chronic insomnia Coronary artery disease Hyperlipidemia Hypertension Lumbar degenerative disc disease Moderate aortic stenosis by prior echocardiogram Restless leg syndrome Urinary incontinence Surgical History Hx of appendectomy (~2018) S/P TURP (~2017) Family History (Updated 07/29/21 @ 22:32 by Armando Hayden DO) Mother No pertinent past medical history Father No pertinent past medical history Social History household members: spouse Smoking Status: Former smoker alcohol intake: former Assessment & Plan Assessment and plan (1) Abscess of perineum: Status: Acute Plan Okay for discharge. No need to continue packing the wound but he may need dry gauze to collect any drainage for the next few days. Time Spent With Patient Critical Care time: I spent a total of [] minutes of critical care time on this patient's care today; this time is exclusive of procedural time.
--- NOTE | 2021-07-30 10:43 | CM.IDA ---
Initial DCP Assessment Note Pt is a 80 yo male, resident of [place] , arrives w/ absess drainage around groin area now s/p I+D PCP: Taz Duffy Payer: ADRIENNE/Jagruti Segovia Reviewed chart, pt discussed in multidisciplinary rounds this morning. Patient is discharged this morning w/resumption of HH services. Patient/spouse aware and agreeable to plan. Patient is no longer requiring IV abx, does not require infusion services upon DC today Updated Anuradha/ANIYA w/plan, she requests resumption order No needs expected from DC planning team although will remain available in case this changes today. AUSTIN Bowers Discharge Planning/Care Management CM Discharge Assessment Start: 07/30/21 10:41 Freq: Status: Active Protocol: Document 07/30/21 10:41 SAAD (Rec: 07/30/21 10:43 SAAD [id number]) Discharge Planning Assessment Assigned Trace Evidence Technician AUSTIN Wheeler DPOA/Assigned Designee Name Nehal Oakley, spouse Contact Information [phone] Advance Directives? No History Provided By Patient,Medical Record Has Patient been admitted in last 30 No days? Comment Here 2.24-3.3.22 Prior Living Arrangements House Household Members spouse Type of transporation used prior to Relies on Others admit Independent with ADL's Yes Is patient alert and oriented? Yes Needs Assistance With Managing Medications,Home Chores / Shopping Patient/Family Preference Home with Home Health Barriers to Discharge No Comment Home w/spouse and HH Discharge Plan Home Transportation Arrangement Family Referrals Initiated None needed
--- NOTE | 2021-07-30 13:20 | PC.NURSE ---
late entry: sent patient with extra gauze and abd pad. gave paperwork for dc instructions. IV removed.
== END 2021-07-30 10:57 | disposition home or self-care (01) ==
LOC: ED 10:33 → AC 10:54
PROVIDERS: Surgery; Admitting Provider Internal Medicine; Emergency Provider Emergency Medicine; PCP Internal Medicine; Referring Provider Emergency Medicine; Visit Provider Internal Medicine
PROC: (CPT 46040; principal; 2021-07-29 17:30)
DX: L02.215 Cutaneous abscess of perineum (principal); B95.61 Methicillin susceptible Staphylococcus aureus infection as the cause of diseases classified elsewhere; I10 Essential (primary) hypertension; I25.10 Atherosclerotic heart disease of native coronary artery without angina pectoris; E66.9 Obesity, unspecified; N40.1 Benign prostatic hyperplasia with lower urinary tract symptoms; R33.8 Other retention of urine; E78.5 Hyperlipidemia, unspecified; Z20.822 Contact with and (suspected) exposure to COVID-19
CPT/HCPCS: 54700; 36415; 74177; 80048; 80053; 81001; 83605; 83735; 84145; 85025; 85610; 85730; 87040; 87070; 87075; 87077; 87147; 87186; 87205; 87635; 94760; 96365; 96366; 96367; 96368; 99284; C9803; G0378; J0696; J2405; J2543; J2704; J3010; Q9967

== ENCOUNTER → 2021-09-07 14:20 | Outpatient (CLI) | payer MEDICARE, OTHER, SELFPAY ==
[2021-07-29 14:48] VITALS: BMI 27.5
[2021-09-07 15:24] LABS: Hematocrit 41.2 % (41-53); Hemoglobin 13.9 g/dL (13.5-17.5); Mean Corpuscular HGB Conc 33.7 % (30-36); Mean Corpuscular Hemoglobin 28.4 PG (26-34); Mean Corpuscular Volume 84.2 fL (80-100); Platelet Count 165 X10^3/uL (150-400); Red Blood Cell Count 4.89 X10^6/uL (4.5-5.9); Red Cell Distribution Width 17.5 % (11.6-14.8); White Blood Cell Count 5.6 X10^3/uL (4.5-11.0)
[2021-09-07 16:53] LABS: Alanine Aminotransferase 25 IU/L (<50); Albumin 4.6 g/dL (3.5-5.0); Albumin Globulin Ratio 1.7 (1.0-2.8); Alkaline Phosphatase 57 U/L (38-126); Aspartate Aminotransferase 29 IU/L (17-59); BUN Creatinine Ratio 17.7 (6-22); Bilirubin Total 0.3 mg/dL (0.2-1.3); Blood Urea Nitrogen 17 mg/dL (9-20); Calcium 9.3 mg/dL (8.4-10.2); Carbon Dioxide 29 mmol/L (22-32); Chloride 104 mmol/L (98-107); Cholesterol 132 mg/dL (140-199); Estimated Glomerular Filt Rate > 60 mL/min (>60); Globulin 2.7 g/dL (1.7-4.1); Glucose 106 mg/dL (80-110); HDL Cholesterol 43 mg/dL (40-60); HEMOLYSIS < 15 (0-50); LDL Cholesterol Calculated 57 mg/dL (<100); Sodium 139 mmol/L (137-145); Total Protein 7.3 g/dL (6.3-8.2); Triglycerides 161 mg/dL (35-150)
[2021-09-07 17:21] LABS: TSH w/ Reflex to FT4 2.11 uIU/mL (0.47-4.68)
== END ==
PROVIDERS: PCP Internal Medicine; Referring Provider Internal Medicine; Visit Provider Internal Medicine
DX: E78.2 Mixed hyperlipidemia (principal); I10 Essential (primary) hypertension; I25.10 Atherosclerotic heart disease of native coronary artery without angina pectoris; I35.0 Nonrheumatic aortic (valve) stenosis
CPT/HCPCS: 36415; 80053; 80061; 84443; 85027

== ENCOUNTER → 2021-09-14 15:04 | Outpatient (CLI) | payer MEDICARE, OTHER, SELFPAY ==
[2021-07-29 14:48] VITALS: BMI 27.5
--- NOTE | 2021-09-14 15:05 | DI.CT.S_ITS ---
PROCEDURE: CT HEAD/BRAIN WO CON INDICATIONS: recent subdural hematoma, doing well TECHNIQUE: Noncontrast 4.5 mm thick angled axial sections acquired from the foramen magnum to the vertex, with coronal and sagittal reformats. For radiation dose reduction, the following was used: automated exposure control, adjustment of mA and/or kV according to patient size. COMPARISON: [facility], CT, CT HEAD TPA, 07/04/2021, 16:33. FINDINGS: Interval left frontal indra hole placement. Previously seen subdural hematoma has resolved. No acute intracranial hemorrhage demonstrated. No findings of mass effect or midline shift. Normal ventricular caliber and position. Patent basilar cisterns. Mild global cerebral volume loss and moderate chronic microvascular ischemic changes. García-white matter differentiation is maintained. Intracranial atherosclerosis. No acute osseous abnormality paranasal sinuses and mastoid air cells are predominantly clear. IMPRESSION: Resolution of previously seen left frontal subdural hematoma. No acute finding otherwise. Dictated by: Baltazar Gordon M.D. on 09/14/2021 at 16:36 Approved by: Baltazar Gordon M.D. on 09/14/2021 at 16:38
== END ==
PROVIDERS: PCP Internal Medicine; Referring Provider Internal Medicine; Visit Provider Internal Medicine
DX: S06.5X9A Traumatic subdural hemorrhage with loss of consciousness of unspecified duration, initial encounter (principal)
CPT/HCPCS: 70450

== ENCOUNTER → 2022-10-16 10:53 | Outpatient (CLI) | payer MEDICARE, OTHER, SELFPAY ==
[2021-07-29 14:48] VITALS: BMI 27.5
[2022-10-16 12:34] LABS: Hematocrit 42.9 % (41-53); Hemoglobin 14.8 g/dL (13.5-17.5); Mean Corpuscular HGB Conc 34.6 % (30-36); Mean Corpuscular Hemoglobin 30.2 PG (26-34); Mean Corpuscular Volume 87.5 fL (80-100); Platelet Count 155 X10^3/uL (150-400); Red Cell Distribution Width 13.9 % (11.6-14.8); White Blood Cell Count 6.6 X10^3/uL (4.5-11.0)
[2022-10-16 12:56] LABS: Alanine Aminotransferase 36 IU/L (<50); Albumin 4.3 g/dL (3.5-5.0); Albumin Globulin Ratio 1.7 (1.0-2.8); Alkaline Phosphatase 50 U/L (38-126); Aspartate Aminotransferase 34 IU/L (17-59); BUN Creatinine Ratio 12.8 (6-22); Bilirubin Total 0.4 mg/dL (0.2-1.3); Blood Urea Nitrogen 18 mg/dL (9-20); Calcium 9.1 mg/dL (8.4-10.2); Carbon Dioxide 27 mmol/L (22-32); Chloride 101 mmol/L (98-107); Cholesterol 109 mg/dL (140-199); Estimated Glomerular Filt Rate 50 mL/min (>60); Globulin 2.5 g/dL (1.7-4.1); Glucose 89 mg/dL (80-110); HDL Cholesterol 37 mg/dL (40-60); HEMOLYSIS < 15 (0-50); LDL Cholesterol Calculated 38 mg/dL (<100); Potassium 4.3 mmol/L (3.4-5.1); Sodium 137 mmol/L (137-145); Total Protein 6.8 g/dL (6.3-8.2); Triglycerides 172 mg/dL (35-150)
== END ==
PROVIDERS: PCP Internal Medicine; Referring Provider Internal Medicine; Visit Provider Internal Medicine
DX: E78.2 Mixed hyperlipidemia (principal); I10 Essential (primary) hypertension; I25.10 Atherosclerotic heart disease of native coronary artery without angina pectoris
CPT/HCPCS: 36415; 80053; 80061; 85027

== ENCOUNTER → 2022-11-03 14:26 | Outpatient (CLI) | payer MEDICARE, OTHER, SELFPAY ==
[2021-07-29 14:48] VITALS: BMI 27.5
[2022-11-03 15:29] LABS: Alanine Aminotransferase 37 IU/L (<50); Albumin 3.8 g/dL (3.5-5.0); Albumin Globulin Ratio 1.7 (1.0-2.8); Alkaline Phosphatase 45 U/L (38-126); Aspartate Aminotransferase 37 IU/L (17-59); BUN Creatinine Ratio 18.2 (6-22); Bilirubin Total 0.4 mg/dL (0.2-1.3); Blood Urea Nitrogen 18 mg/dL (9-20); Calcium 8.7 mg/dL (8.4-10.2); Carbon Dioxide 24 mmol/L (22-32); Chloride 105 mmol/L (98-107); Estimated Glomerular Filt Rate > 60 mL/min (>60); Globulin 2.3 g/dL (1.7-4.1); Glucose 104 mg/dL (80-110); HEMOLYSIS < 15 (0-50); Potassium 4.2 mmol/L (3.4-5.1); Sodium 136 mmol/L (137-145); Total Protein 6.1 g/dL (6.3-8.2)
== END ==
PROVIDERS: PCP Internal Medicine; Referring Provider Internal Medicine; Visit Provider Internal Medicine
DX: R79.89 Other specified abnormal findings of blood chemistry (principal)
CPT/HCPCS: 36415; 80053

== ENCOUNTER → 2023-07-03 09:06 | Outpatient (CLI) | payer MEDICARE, OTHER, SELFPAY ==
[2021-07-29 14:48] VITALS: BMI 27.5
[2023-07-03 09:58] LABS: Hematocrit 45.4 % (41-53); Hemoglobin 15.4 g/dL (13.5-17.5); Mean Corpuscular HGB Conc 33.9 % (30-36); Mean Corpuscular Hemoglobin 30.2 PG (26-34); Platelet Count 149 X10^3/uL (150-400); Red Blood Cell Count 5.11 X10^6/uL (4.5-5.9); Red Cell Distribution Width 14.1 % (11.6-14.8); White Blood Cell Count 5.7 X10^3/uL (4.5-11.0)
[2023-07-03 10:45] LABS: Alanine Aminotransferase 36 IU/L (<50); Albumin 4.4 g/dL (3.5-5.0); Albumin Globulin Ratio 1.8 (1.0-2.8); Alkaline Phosphatase 49 U/L (38-126); Aspartate Aminotransferase 33 IU/L (17-59); Bilirubin Total 0.6 mg/dL (0.2-1.3); Blood Urea Nitrogen 18 mg/dL (9-20); Calcium 9.5 mg/dL (8.4-10.2); Carbon Dioxide 26 mmol/L (22-32); Chloride 108 mmol/L (98-107); Cholesterol 122 mg/dL (140-199); Estimated Glomerular Filt Rate > 60 mL/min (>60); Globulin 2.5 g/dL (1.7-4.1); Glucose 122 mg/dL (80-110); HDL Cholesterol 42 mg/dL (40-60); HEMOLYSIS < 15 (0-50); LDL Cholesterol Calculated 43 mg/dL (<100); Potassium 4.5 mmol/L (3.4-5.1); Sodium 139 mmol/L (137-145); Total Protein 6.9 g/dL (6.3-8.2); Triglycerides 187 mg/dL (35-150)
[2023-07-03 11:00] LABS: TSH w/ Reflex to FT4 1.57 uIU/mL (0.47-4.68)
== END ==
LOC: LAB 09:07
PROVIDERS: PCP Internal Medicine; Referring Provider Internal Medicine; Visit Provider Internal Medicine
DX: E78.2 Mixed hyperlipidemia (principal); N40.1 Benign prostatic hyperplasia with lower urinary tract symptoms; N13.8 Other obstructive and reflux uropathy; R53.83 Other fatigue
CPT/HCPCS: 36415; 80053; 80061; 84153; 84443; 85027

== ENCOUNTER → 2023-07-04 13:45 | Outpatient (CLI) | payer MEDICARE, OTHER, SELFPAY ==
[2021-07-29 14:48] VITALS: BMI 27.5
[2023-07-05 11:11] LABS: Fecal Immunochemical Test Negative (Negative)
== END ==
PROVIDERS: PCP Internal Medicine; Referring Provider Internal Medicine; Visit Provider Internal Medicine
DX: Z12.11 Encounter for screening for malignant neoplasm of colon (principal)
CPT/HCPCS: 82274

== ENCOUNTER → 2023-08-13 14:08 | Outpatient (CLI) | payer MEDICARE, OTHER, SELFPAY ==
[2021-07-29 14:48] VITALS: BMI 27.5
[2023-08-13 15:35] LABS: Hematocrit 40.7 % (41-53); Hemoglobin 13.6 g/dL (13.5-17.5); Mean Corpuscular HGB Conc 33.4 % (30-36); Mean Corpuscular Hemoglobin 29.8 PG (26-34); Mean Corpuscular Volume 89.4 fL (80-100); Platelet Count 138 X10^3/uL (150-400); Red Blood Cell Count 4.55 X10^6/uL (4.5-5.9); Red Cell Distribution Width 13.7 % (11.6-14.8)
[2023-08-13 16:15] LABS: Alanine Aminotransferase 35 IU/L (<50); Albumin 4.3 g/dL (3.5-5.0); Alkaline Phosphatase 51 U/L (38-126); Aspartate Aminotransferase 48 IU/L (17-59); BUN Creatinine Ratio 18.2 (6-22); Bilirubin Total 0.7 mg/dL (0.2-1.3); Blood Urea Nitrogen 22 mg/dL (9-20); Calcium 8.9 mg/dL (8.4-10.2); Carbon Dioxide 24 mmol/L (22-32); Chloride 108 mmol/L (98-107); Estimated Glomerular Filt Rate > 60 mL/min (>60); Globulin 2.2 g/dL (1.7-4.1); Glucose 99 mg/dL (80-110); HEMOLYSIS 19 (0-50); Potassium 4.2 mmol/L (3.4-5.1); Sodium 138 mmol/L (137-145); Total Protein 6.5 g/dL (6.3-8.2)
[2023-08-13 16:22] LABS: NT-proBNP (BNP-Adult 18+) 218 pg/mL (<450)
== END ==
PROVIDERS: PCP Internal Medicine; Referring Provider Internal Medicine; Visit Provider Internal Medicine
DX: I25.10 Atherosclerotic heart disease of native coronary artery without angina pectoris (principal); I10 Essential (primary) hypertension; I35.0 Nonrheumatic aortic (valve) stenosis
CPT/HCPCS: 36415; 80053; 83880; 85027

== ENCOUNTER → 2023-09-17 08:52 | Outpatient (CLI) | payer MEDICARE, OTHER, SELFPAY ==
[2021-07-29 14:48] VITALS: BMI 27.5
--- NOTE | 2023-09-17 07:48 | DI.ECHO.S_ITS ---
[facility] : : [address] : : [place] : : [id number] : : Phone: [phone] Echocardiogram Report + + :Name: MYNOR GALICIA Study Date: 09/17/2023 Height: 75 in : :Hospital ReadingLocation: Weight: 250 lb : : Gender: Male BSA: 2.4 m2 : :: 1940 Age: 82 yrs BP: 140/97 mmHg: :Reason For Study: AORTIC STENOSIS, ISCHEMIC CARDIOMYOPATHY : :Ordering Physician: BRYAN, : :ABNER Solis Performed By: Baltazar Macias : :Referring: ABNER ADAMS V : + + Interpretation Summary Left ventricular wall thickness is mild-moderately increased. The ejection fraction is estimated to be 65-70%. There is severe aortic stenosis. The peak aortic velocity is 4.72 m/sec. The calculated aortic valve area is 0.8 cm2. The ascending aorta is mildly enlarged. Comparison is made with the echocardiogram of 06/05/2021, aortic stenosis has progressed. Procedure: A two-dimensional transthoracic echocardiogram with color flow and Doppler was performed. The study quality was technically adequate. Comparison is made with the echocardiogram of 06/05/2021. The heart rate ranged between 48-63 bpm during the study. Left Ventricle: Left ventricular wall thickness is mild-moderately increased. The ejection fraction is estimated to be 65-70%. There are no focal wall motion abnormalities. Right Ventricle: The right ventricle is borderline dilated. The right ventricular systolic function is normal. Atria: The left atrial size is normal. Right atrial size is normal. The interatrial septum grossly appears intact with no obvious evidence for an atrial septal defect. Mitral Valve: The mitral valve is normal. There is no mitral valve stenosis. There is trace mitral regurgitation. Aortic Valve: The aortic valve is trileaflet. There is severe aortic stenosis. The peak aortic velocity is 4.72 m/sec. The aortic valve mean gradient is 60.7 mmHg. The calculated aortic valve area is 0.8 cm2. There is trace aortic regurgitation. Tricuspid Valve: The tricuspid valve is normal. There is no tricuspid stenosis. There is trace tricuspid regurgitation. The right ventricular systolic pressure is estimated to be at least 37.6 mmHg based on an estimated right atrial pressure of 8 mm Hg. Pulmonic Valve: The pulmonic valve is not well visualized. There is no pulmonic valvular stenosis. There is a trace or physiologic amount of pulmonic regurgitation. Great Vessels: The aortic root is normal size. The ascending aorta is mildly enlarged. The IVC is dilated (diameter is greater than 2.1 cm) yet it collapses greater than 50% with a sniff. This suggests a right atrial pressure of 8 mm Hg. Pericardium/ Pleura There is no pericardial effusion. There is no pleural effusion. MMode/2D Measurements & Calculations LVIDd: 4.9 cm LVOT diam: 2.3 cm LVIDs: 3.2 cm Ao root diam: 3.5 cm FS: 33.9 % asc Aorta Diam: 4.0 cm IVSd: 1.5 cm Ao Arch Diam (Prox Trans): 3.5 cm LVPWd: 1.4 cm LV staton. diameter/BSA (cm/m^2): 2.0 LV sys. diameter/BSA (cm/m^2): 1.3 LA A2 area: 18.1 cm2 RA long axis: 5.1 cm LA A4 area: 31.5 cm2 RA area: 16.1 cm2 LA length (vol): 6.5 cm RA vol: 43.0 ml LA vol: 74.7 ml RA : 17.8 ml/m2 LA vol index: 31.0 ml/m2 IVC diam: 2.5 cm RVD1 (basal): 4.0 cm RVD2 (mid): 3.6 cm TAPSE: 2.7 cm Doppler Measurements & Calculations Ao V2 max: 472.3 cm/sec LVOT Max Shree: 102.4 cm/sec Ao V2 mean: 377.4 cm/sec LV V1 max P.2 mmHg Ao max P.2 mmHg LV V1 VTI: 27.7 cm Ao mean P.7 mmHg JOHN(I,D): 0.80 cm2 Ao V2 VTI: 140.0 cm JOHN(V,D): 0.88 cm2 sev ratio: 0.20 JOHN indexed to BSA (cm^2/m^2): 0.33 MV E max shree: 56.2 cm/sec TR max shree: 271.9 cm/sec MV A max shree: 65.7 cm/sec TR max P.6 mmHg MV E/A: 0.86 PA V2 max: 89.5 cm/sec Med Peak E' Shree: 6.0 cm/sec PA V2 mean: 56.5 cm/sec E/E' med: 9.4 PA mean P.5 mmHg Lat Peak E' Shree: 5.7 cm/sec PA pr(Accel): 37.9 mmHg E/E' lat: 9.9 E/e' average: 9.7 MV dec time: 0.21 sec [facility] 112.2 ml Electronically signed by: Whit Johns on Reading Physician:09/17/2023 03:44 PM
--- NOTE | 2023-09-17 08:53 | DI.NM.S_ITS ---
PROCEDURE: NM BERT PERF SPECT R&S PHARM Rest and pharmacological stress myocardial perfusion SPECT with gated imaging and ejection fraction RADIOPHARMACEUTICAL: 27.5 mCi Tc-99m tetrafosmin IV at rest and 25.2 mCi Tc-99m tetrafosmin IV at peak effect of pharmacological stress. [id number] was performed. INDICATIONS: rule out ischemic cardiomyopathy TECHNIQUE: Radiopharmaceutical was injected at peak stress test, and also at rest. SPECT images were obtained. SPECT myocardial perfusion images were displayed in short axis, horizontal long axis, and vertical long axis views. Gated images were reviewed using maniaTV software. COMPARISON: None. CARDIAC STRESS: An exercise stress test was attempted however the patient walked less than 1 minute and 30 seconds but had to stop due to fatigue. A pharmacologic stress test was performed under the supervision of an attending staff, using an infusion of regadenoson. Hemodynamic data: There is normal blood pressure and heart rate response to pharmacologic stress. Symptoms: The patient denied anginal chest pain. EKG: No diagnostic changes of ischemia; no ectopy. FINDINGS: Raw data: There is good myocardial uptake of radiotracer. No significant motion artifacts. Mnbp-jk-jcufe ratio is 0.18 (normal is less than 0.38 for tetrafosmin tracer). Left ventricle function: Gated images demonstrate normal left ventricular wall thickening. No segmental wall motion abnormalities. No transient ischemic dilation; TID is 1.13 (normal less than 1.3). Left ventricle resting end diastolic volume is 120 mL. Left ventricle stress ejection fraction is 72%; normal range is above 45%. Myocardial perfusion: There is normal distribution of activity in the right and left ventricular myocardium. No fixed or reversible perfusion defects. IMPRESSION: Low risk study for ischemia. Exercise stress test stopped due to exertional fatigue. No evidence of pharmacologic induced ischemia or scar on SPECT imaging. Top normal LV size with normal function. Dictated by: Kandy Daigle D.O. on 09/18/2023 at 12:46 Approved by: Kandy Daigle D.O. on 09/18/2023 at 12:49
== END ==
LOC: ECHO 08:52
PROVIDERS: PCP Internal Medicine; Referring Provider Internal Medicine; Visit Provider Internal Medicine
DX: I35.0 Nonrheumatic aortic (valve) stenosis (principal); I25.10 Atherosclerotic heart disease of native coronary artery without angina pectoris
CPT/HCPCS: 78452; 93017; 93306; A9502; J2785

== ENCOUNTER → 2023-12-13 09:23 | Outpatient (CLI) | payer MEDICARE, OTHER, SELFPAY ==
[2021-07-29 14:48] VITALS: BMI 27.5
[2023-12-13 10:33] LABS: Add Manual Diff / Slide Review NO; Basophils Absolute Auto 0 /uL (0-100); Basophils Percent Auto 0.5 % (0-2); Eosinophils Absolute Auto 200 /uL (0-450); Eosinophils Percent Auto 3.7 % (2-4); Hemoglobin 13.8 g/dL (13.5-17.5); Lymphocytes Absolute Auto 1300 /uL (1100-4500); Lymphocytes Percent Auto 24.3 % (25-40); Mean Corpuscular HGB Conc 33.6 % (30-36); Mean Corpuscular Hemoglobin 29.9 PG (26-34); Mean Corpuscular Volume 89.1 fL (80-100); Monocytes Absolute Auto 600 /uL (0-900); Monocytes Percent Auto 10.8 % (3-14); Neutrophils Absolute Auto 3200 /uL (1500-7000); Neutrophils Percent Auto 60.7 % (50-75); Platelet Count 140 X10^3/uL (150-400); Red Cell Distribution Width 14.1 % (11.6-14.8); White Blood Cell Count 5.2 X10^3/uL (4.5-11.0)
[2023-12-13 11:31] LABS: BUN Creatinine Ratio 19.6 (6-22); Blood Urea Nitrogen 20 mg/dL (9-20); Carbon Dioxide 24 mmol/L (22-32); Chloride 104 mmol/L (98-107); Estimated Glomerular Filt Rate > 60 mL/min (>60); Glucose 114 mg/dL (80-110); HEMOLYSIS < 15 (0-50); Potassium 4.8 mmol/L (3.4-5.1); Sodium 137 mmol/L (137-145)
== END ==
PROVIDERS: PCP Internal Medicine; Referring Provider Internal Medicine Interventional Cardiology; Visit Provider Internal Medicine Interventional Cardiology
DX: I35.0 Nonrheumatic aortic (valve) stenosis (principal)
CPT/HCPCS: 36415; 80048; 85025

== ENCOUNTER → 2024-08-20 08:35 | Outpatient (CLI) | payer MEDICARE, OTHER, SELFPAY ==
[2021-07-29 14:48] VITALS: BMI 27.5
[2024-08-20 09:44] LABS: Hematocrit 40.7 % (41-53); Hemoglobin 13.9 g/dL (13.5-17.5); Mean Corpuscular HGB Conc 34.2 % (30-36); Mean Corpuscular Hemoglobin 30.4 PG (26-34); Mean Corpuscular Volume 88.9 fL (80-100); Platelet Count 135 X10^3/uL (150-400); Red Blood Cell Count 4.58 X10^6/uL (4.5-5.9); White Blood Cell Count 5.5 X10^3/uL (4.5-11.0)
[2024-08-20 10:07] LABS: Aspartate Aminotransferase 41 IU/L (17-59); Blood Urea Nitrogen 24 mg/dL (9-20); Calcium 9.4 mg/dL (8.4-10.2); Carbon Dioxide 26 mmol/L (22-32); Chloride 104 mmol/L (98-107); Cholesterol 122 mg/dL (140-199); Estimated Glomerular Filt Rate > 60 mL/min (>60); Glucose 114 mg/dL (70-99); HDL Cholesterol 37 mg/dL (40-60); HEMOLYSIS < 15 (0-50); LDL Cholesterol Calculated 35 mg/dL (<100); Potassium 4.3 mmol/L (3.4-5.1); Sodium 138 mmol/L (137-145); Triglycerides 252 mg/dL (35-150)
[2024-08-20 10:38] LABS: TSH w/ Reflex to FT4 1.67 uIU/mL (0.47-4.68)
== END ==
PROVIDERS: PCP Internal Medicine; Referring Provider Internal Medicine; Visit Provider Internal Medicine
DX: Z13.89 Encounter for screening for other disorder (principal); R53.83 Other fatigue
CPT/HCPCS: 36415; 80048; 80061; 84443; 84450; 85027

== ENCOUNTER → 2025-03-13 07:37 | Outpatient (CLI) | payer MEDICARE, OTHER, SELFPAY ==
[2021-07-29 14:48] VITALS: BMI 27.5
[2025-03-13 08:39] LABS: Hematocrit 37.9 % (41-53); Hemoglobin 12.8 g/dL (13.5-17.5); Mean Corpuscular HGB Conc 33.9 % (30-36); Mean Corpuscular Hemoglobin 29.4 PG (26-34); Mean Corpuscular Volume 86.7 fL (80-100); Platelet Count 140 X10^3/uL (150-400)
[2025-03-13 09:23] LABS: Blood Urea Nitrogen 19 mg/dL (9-20); Calcium 9.0 mg/dL (8.4-10.2); Carbon Dioxide 26 mmol/L (22-32); Chloride 106 mmol/L (98-107); Cholesterol 104 mg/dL (140-199); Estimated Glomerular Filt Rate > 60 mL/min (>60); Glucose 115 mg/dL (70-99); HDL Cholesterol 42 mg/dL (40-60); HEMOLYSIS < 15 (0-50); Potassium 4.3 mmol/L (3.4-5.1); Sodium 140 mmol/L (137-145); Triglycerides 118 mg/dL (35-150)
== END ==
PROVIDERS: PCP Internal Medicine; Referring Provider Internal Medicine Cardiovascular Disease; Visit Provider Internal Medicine Cardiovascular Disease
DX: E78.5 Hyperlipidemia, unspecified (principal); I10 Essential (primary) hypertension
CPT/HCPCS: 36415; 80048; 80061; 85027

== ENCOUNTER → 2025-04-04 07:11 | Outpatient (CLI) | payer MEDICARE, OTHER, SELFPAY ==
[2021-07-29 14:48] VITALS: BMI 27.5
--- NOTE | 2025-04-04 07:13 | DI.MRI.S_ITS ---
PROCEDURE: MR ANKLE RT WO CON INDICATIONS: chronic pain of right ankle TECHNIQUE: Noncontrast sagittal T1 spin echo and T2 fast spin echo with fat saturation, axial proton density fast spin echo and T2 fast spin echo with fat saturation, coronal T1 spin echo and T2 fast spin echo with fat saturation through the ankle/hindfoot. COMPARISON: None. FINDINGS: Image quality: Excellent. Bones and joints: [id number] midfoot and hindfoot joint osteoarthritis. Finding is most notably involving TMT joints. Marrow edema involving medial cuneiform, 2nd metatarsal base and adjacent distal portion of middle cuneiform is seen without discrete fracture line. Subcortical cystic changes are noted involving medial periphery of lateral malleolus adjacent to the ankle mortise. Tiny 2 mm osteochondral injury involving lateral weight-bearing portion of talar dome is seen. Small tibiotalar joint effusion, no loose bodies. Medial structures: The posterior tibialis tendon is thickened with intrasubstance T2 hyperintense signal at the level of mid to distal talus and talonavicular joint. The flexor digitorum longus, and flexor hallucis longus tendons are intact. The posterior tibial neurovascular bundle appears normal within the tarsal tunnel, without extrinsic mass effect. The deltoid ligament and spring ligament are thickened. Lateral structures: The anterior talofibular, calcaneofibular, and posterior talofibular ligaments appear mildly thickened. More superiorly, the anterior and posterior tibiofibular ligaments appear intact, as is the intermalleolar ligament. The tibiofibular syndesmosis is normal in width at 2 mm or less. Thickened peroneus tendons at the level of lateral malleolus tip extending to the level of cuboid is seen. 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 Anterior structures: The tibialis anterior, extensor hallucis longus, and extensor digitorum longus tendons appear intact. Posterior and plantar structures: Distal Achilles tendinosis extending to its posterior calcaneal insertion. Mildly thickened medial band of plantar fascia at its plantar calcaneal insertion is seen.. No abductor digiti quinti muscle atrophy to suggest Maria neuropathy. IMPRESSION: 1. [id number] midfoot and hindfoot joint osteoarthritis most notably involving medial aspect of midfoot joints as above. No fracture or dislocation. Osteochondral injury involving lateral weight-bearing portion of talar dome and adjacent lateral malleolus as above. Small joint effusion, no loose bodies. 2. Low to moderate grade tendinosis and intrasubstance partial-thickness tear involving distal posterior tibialis tendon as above. 3. Low-grade tendinosis involving peroneus tendons at the level of lateral malleolus extending to the level of cuboid. 4. Low-grade medial ankle ligament sprain. Low-grade sprain also seen involving anterior and posterior talofibular ligaments and calcaneofibular ligament. No full- thickness ankle ligament rupture. 5. Distal Achilles tendinosis at its posterior calcaneal insertion. No Achilles tendon rupture. Mildly thickened plantar fascia concerning for low-grade plantar fasciitis. 6. Edema and fluid within the sinus tarsi which can be seen associated with sinus tarsi syndrome. Dictated by: Maikel Garzon M.D. on 04/06/2025 at 9:25 Approved by: Maikel Garzon M.D. on 04/06/2025 at 9:30
== END ==
LOC: MRI 07:12
PROVIDERS: PCP Internal Medicine; Referring Provider Podiatrist; Visit Provider Podiatrist
DX: S93.491A Sprain of other ligament of right ankle, initial encounter (principal); S93.411A Sprain of calcaneofibular ligament of right ankle, initial encounter; M19.071 Primary osteoarthritis, right ankle and foot; M72.2 Plantar fascial fibromatosis; M25.571 Pain in right ankle and joints of right foot; M25.474 Effusion, right foot; G89.29 Other chronic pain
CPT/HCPCS: 73721